=== PATIENT | male | born 1950 | race Caucasian/White ===

== ENCOUNTER 2024-01-28 19:14 | Inpatient (IN) | payer MEDICARE, BC, SELFPAY ==
--- NOTE | 2024-01-28 19:19 | ED.GENADULT ---
HPI - General Adult General Time Seen by Provider: 19:19 Date Seen: 01/28/24 Chief complaint: Abdominal Pain Stated complaint: Abdominal pain Time Seen by Provider: 01/28/24 19:19 Source: patient, RN notes reviewed and old records reviewed Mode of arrival: ambulatory Limitations: no limitations History of Present Illness HPI narrative: 73-year-old male who comes in today with abdominal pain. Patient notes about a week ago he was climbing at work wound fill acute pulled a muscle in his left upper abdomen, has had pain since. Pain is worse with movement, occasionally some pain on the right side as well. No nausea, vomiting, diarrhea, blood in the stools. Denies chest pain, shortness of breath, or pain with breathing. Related Data Home Medications ?Medication ?Instructions ?Recorded ?Confirmed amlodipine 5 mg tablet 5 mg PO DAILY 01/28/24 01/28/24 lisinopril 20 mg tablet 20 mg PO DAILY 01/28/24 01/28/24 rosuvastatin 10 mg tablet 10 mg PO QPM 01/28/24 01/28/24 Allergies Allergy/AdvReac Type Severity Reaction Status Date / Time No Known Drug Allergies Allergy Verified 01/28/24 20:30 PFSH PFS Social History Non-prescribed substance use: denies use service: No Exam Narrative: Exam Narrative: General: Well-developed and well-nourished, no acute distress Head: Atraumatic and normocephalic Eyes: Pupils are equal reactive, extraocular motions intact, conjunctiva clear ENT: External nose and ears are normal, posterior pharynx without erythema or exudate Neck: No midline cervical tenderness, full spontaneous range of motion the neck, trachea midline, no adenopathy Heart: Regular rate and rhythm no murmurs or thrills Lungs: Clear to auscultation bilaterally without wheezes or crackles Abdomen: Soft, tenderness of the left mid abdominal musculature, positive Carnett sign and there does seem to be a palpable lump of the abdominal wall musculature this site, nondistended with active bowel sounds Musculoskeletal: No tenderness, deformity, or edema Neurologic: Awake, alert, and oriented x3, no gross focal neurologic deficits, cranial nerves intact as tested Psych: Mood and affect are appropriate Skin: No rashes Const: Vital Signs, click to edit/add: Vital Signs - 24 hr 01/28/24 19:28 Temperature 100 F H Pulse Rate [Left P ulse Oximeter] 106 H Respiratory Rate 20 Blood Pressure [Ri ght Upper Arm] 143/96 H Pulse Oximetry 97 Oxygen Delivery Me thod Room Air Course Course ED Course: Patient seen examined, reviewed prior records as available. Patient has a history of hypertension. He presents today with left-sided abdominal pain he for about a week. On exam, left mid abdominal tenderness, with a palpable fullness of the abdominal wall, suspect this symptoms liver are related to abdominal wall hematoma or sprain. Diverticulitis or pancreatitis possible but less likely. Labs ordered along with CT scan of the abdomen and pelvis. Consider thoracic pathology including myocardial infarction or pulmonary embolism, however given tenderness on exam her location of symptoms, abdominal process is more likely in this seems to be isolated to the abdominal wall. Social determinates of care include poor access to affordable healthcare. Reevaluation(s) Time of Reevaluation #1: 20:15 Reevaluation #1: Labs ordered and independently interpreted by me with leukocytosis, no anemia, normal hepatic panel, normal basic panel, normal lipase. CT scan is pending. Time of Reevaluation #2: 20:29 Reevaluation #2: CT scan of the abdomen and pelvis independently interpreted by me without biliary obstruction or gallbladder distension, does demonstrate some inflammatory changes in the left lower quadrant which could be related to colitis or diverticulitis, no free air or evidence for perforation. With upstream bowel distension and some downstream decompression, concern also for obstructing lesion Time of Reevaluation #3: 20:55 Reevaluation #3: Reviewed radiology interpretation of CT scan which demonstrates a possible early abscess measuring about 3 cm. Care discussed with Dr. Castañeda in the emergency department who requests or dependent for the patient and admission Vital Signs Vital signs: Initial Vital Signs Temperature 100 F H 01/28/24 19:28 Temperature Source Temporal Artery Scan 01/28/24 19:28 Pulse Rate 106 H 01/28/24 19:28 Respiratory Rate 20 01/28/24 19:28 Blood Pressure 143/96 H 01/28/24 19:28 Blood Pressure Mean 111 H 01/28/24 19:28 Blood Pressure Position Sitting 01/28/24 19:28 Pulse Oximetry 97 01/28/24 19:28 Oxygen Delivery Method Room Air 01/28/24 19:28 Vital Signs Temperature 100 F H 01/28/24 19:28 Pulse Rate 106 H 01/28/24 19:28 Respiratory Rate 20 01/28/24 19:28 Blood Pressure 143/96 H 01/28/24 19:28 Pulse Oximetry 97 01/28/24 19:28 Oxygen Delivery Method Room Air 01/28/24 19:28 Temperature 100 F H 01/28/24 19:28 Pulse Rate 106 H 01/28/24 19:28 Respiratory Rate 20 01/28/24 19:28 Blood Pressure 143/96 H 01/28/24 19:28 Pulse Oximetry 97 01/28/24 19:28 Oxygen Delivery Method Room Air 01/28/24 19:28 Medications Administered Medications: Generic Name Dose Route Start Last Admin Trade Name Freq PRN Reason Stop Dose Admin Ertapenem 1 gm/ Sodium 100 mls @ 200 mls/hr 01/28/24 20:54 01/28/24 21:03 Chloride IVPB 01/28/24 20:55 200 mls/hr ONCE ONE Administration Medical Decision Making Lab Data Labs: Lab Results 01/28/24 01/28/24 01/28/24 Range/Units 19:45 19:45 19:45 WBC 15.50 H (4.50-11.00) K/uL RBC 5.02 (4.30-5.90) m/uL Hgb 14.3 (13.5-17.5) gm/dL Hct 43.7 (37.0-53.0) % MCV 87 (80-100) fL MCH 29 (26-34) pg MCHC 33 (32-36) gm/dL RDW Coeff of Aida 13.3 (11.5-15.5) % Plt Count 230 (140-440) K/uL Neut % (Auto) 76.3 H (42.0-72.0) % Lymph % (Auto) 10.5 L (20-44) % [place] % (Auto) 12.8 H (0.0-11.0) % Eos % (Auto) 0.1 (0.0-7.0) % Baso % (Auto) 0.1 (0.0-3.0) % Neut # (Auto) 11.80 H (1.7-7.0) K/uL Lymph # (Auto) 1.60 (0.90-2.90) K/uL [place] # (Auto) 2.00 H (0.00-0.90) K/UL Eos # (Auto) 0.00 (0.00-0.50) K/uL Baso # (Auto) 0.00 (0.00-0.30) K/uL Abs Immat Gran (auto) 0.00 (0.00-0.30) K/uL Imm/Tot Granulo (auto) 0.2 % Sodium Cancelled 133 L Potassium Cancelled 4.1 Chloride Cancelled Carbon Dioxide Anion Gap BUN Creatinine Estimated Creat Clear Estimated GFR Glucose Calcium Total Bilirubin (0.1-1.5) mg/dL Direct Bilirubin (0.0-0.5) mg/dL AST (12-35) U/L ALT (4-50) U/L Alkaline Phosphatase (40-150) U/L Total Protein (6.0-8.3) g/dL Albumin (3.3-5.0) g/dL Lipase (23-300) U/L 01/28/24 01/28/24 01/28/24 Range/Units 19:45 19:45 19:45 WBC (4.50-11.00) K/uL RBC (4.30-5.90) m/uL Hgb (13.5-17.5) gm/dL Hct (37.0-53.0) % MCV (80-100) fL MCH (26-34) pg MCHC (32-36) gm/dL RDW Coeff of Aida (11.5-15.5) % Plt Count (140-440) K/uL Neut % (Auto) (42.0-72.0) % Lymph % (Auto) (20-44) % [place] % (Auto) (0.0-11.0) % Eos % (Auto) (0.0-7.0) % Baso % (Auto) (0.0-3.0) % Neut # (Auto) (1.7-7.0) K/uL Lymph # (Auto) (0.90-2.90) K/uL [place] # (Auto) (0.00-0.90) K/UL Eos # (Auto) (0.00-0.50) K/uL Baso # (Auto) (0.00-0.30) K/uL Abs Immat Gran (auto) (0.00-0.30) K/uL Imm/Tot Granulo (auto) % Sodium Potassium Chloride 99 Carbon Dioxide Cancelled 26 Anion Gap Cancelled 8 BUN Cancelled Creatinine Estimated Creat Clear Estimated GFR Glucose Calcium Total Bilirubin (0.1-1.5) mg/dL Direct Bilirubin (0.0-0.5) mg/dL AST (12-35) U/L ALT (4-50) U/L Alkaline Phosphatase (40-150) U/L Total Protein (6.0-8.3) g/dL Albumin (3.3-5.0) g/dL Lipase (23-300) U/L 01/28/24 01/28/24 01/28/24 Range/Units 19:45 19:45 19:45 WBC (4.50-11.00) K/uL RBC (4.30-5.90) m/uL Hgb (13.5-17.5) gm/dL Hct (37.0-53.0) % MCV (80-100) fL MCH (26-34) pg MCHC (32-36) gm/dL RDW Coeff of Aida (11.5-15.5) % Plt Count (140-440) K/uL Neut % (Auto) (42.0-72.0) % Lymph % (Auto) (20-44) % [place] % (Auto) (0.0-11.0) % Eos % (Auto) (0.0-7.0) % Baso % (Auto) (0.0-3.0) % Neut # (Auto) (1.7-7.0) K/uL Lymph # (Auto) (0.90-2.90) K/uL [place] # (Auto) (0.00-0.90) K/UL Eos # (Auto) (0.00-0.50) K/uL Baso # (Auto) (0.00-0.30) K/uL Abs Immat Gran (auto) (0.00-0.30) K/uL Imm/Tot Granulo (auto) % Sodium Potassium Chloride Carbon Dioxide Anion Gap BUN 15 Creatinine Cancelled 1.1 Estimated Creat Clear Cancelled 66.63 Estimated GFR Cancelled Glucose Calcium Total Bilirubin (0.1-1.5) mg/dL Direct Bilirubin (0.0-0.5) mg/dL AST (12-35) U/L ALT (4-50) U/L Alkaline Phosphatase (40-150) U/L Total Protein (6.0-8.3) g/dL Albumin (3.3-5.0) g/dL Lipase (23-300) U/L 01/28/24 01/28/24 01/28/24 Range/Units 19:45 19:45 19:45 WBC (4.50-11.00) K/uL RBC (4.30-5.90) m/uL Hgb (13.5-17.5) gm/dL Hct (37.0-53.0) % MCV (80-100) fL MCH (26-34) pg MCHC (32-36) gm/dL RDW Coeff of Aida (11.5-15.5) % Plt Count (140-440) K/uL Neut % (Auto) (42.0-72.0) % Lymph % (Auto) (20-44) % [place] % (Auto) (0.0-11.0) % Eos % (Auto) (0.0-7.0) % Baso % (Auto) (0.0-3.0) % Neut # (Auto) (1.7-7.0) K/uL Lymph # (Auto) (0.90-2.90) K/uL [place] # (Auto) (0.00-0.90) K/UL Eos # (Auto) (0.00-0.50) K/uL Baso # (Auto) (0.00-0.30) K/uL Abs Immat Gran (auto) (0.00-0.30) K/uL Imm/Tot Granulo (auto) % Sodium Potassium Chloride Carbon Dioxide Anion Gap BUN Creatinine Estimated Creat Clear Estimated GFR 71 Glucose Cancelled 118 H Calcium Cancelled 9.1 Total Bilirubin 1.4 (0.1-1.5) mg/dL Direct Bilirubin 0.5 (0.0-0.5) mg/dL AST 23 (12-35) U/L ALT 13 (4-50) U/L Alkaline Phosphatase 80 (40-150) U/L Total Protein 7.7 (6.0-8.3) g/dL Albumin 4.4 (3.3-5.0) g/dL Lipase 34 (23-300) U/L Discharge Plan Discharge Clinical Impression: Diverticulitis of intestine with perforation and abscess Patient Disposition: Admitted As Inpatient
[2024-01-28 19:28] VITALS: BP 143/96; PULSE 106; RESP 20; TEMP 37.7; O2SAT 97; BMI 33.9
--- NOTE | 2024-01-28 19:35 | CRLHL7_ITS ---
For Patients: As a result of the Century Cures Act, medical imaging exams and procedure reports are released immediately into your electronic medical record. You may view this report before your referring provider. If you have questions, please contact your health care provider. Indication: Left-sided abdominal pain Technique: CT through the abdomen and pelvis following 122 mL Isovue 370 IV contrast Comparison: None Findings: Lower chest: There is a partially visualized nodule in the left lower lobe measuring at least 7 millimeters. Hepatobiliary: No significant parenchymal abnormality is appreciated. Spleen: Unremarkable. Pancreas: No acute abnormality appreciated. Adrenal glands: No acute abnormality appreciated. Kidneys: No significant parenchymal abnormality appreciated. No visualized calculi. No hydronephrosis. Bowel: No obstruction. Diverticulosis. There is significant wall thickening and stranding along the descending colon appearing to be associated with an inflamed diverticulum. A small collection of mottled gas and debris adjacent to the colon measuring 3.0 centimeter suspicious for early abscess formation within the inflamed diverticulum. The appendix is visualized and appears unremarkable. Vascular: No acute abnormality appreciated. Lymph nodes: No gross lymphadenopathy. Peritoneum: No free air. No free fluid. : No acute abnormality appreciated. Soft tissues: No acute abnormality appreciated. Fat containing inguinal hernias. Bones: No acute fracture. No lytic or blastic lesion. L5 pars defects with L5-S1 anterolisthesis. Impression: 1. Acute descending colon diverticulitis. Findings are suspicious for an early abscess within the involved diverticulum measuring 3.0 centimeters. 2. Incompletely visualized pulmonary nodule in the left lower lobe measures at least [address] in 8-12 weeks for further evaluation. Please note that all CT scans at this facility use dose modulation, iterative reconstruction, and/or weight-based dosing when appropriate to reduce radiation dose to as low as reasonably achievable. Dictated by Tyrone Torrez MD @ 01/28/2024 8:52:58 PM (Electronically Signed)
[2024-01-28 19:51] LABS: Basophils Percent Auto 0.1 % (0.0-3.0); Eosinophils Percent Auto 0.1 % (0.0-7.0); Hematocrit 43.7 % (37.0-53.0); Hemoglobin* 14.3 gm/dL (13.5-17.5); Immature Granulocytes Pct Auto 0.2 %; Lymphocytes Percent Auto 10.5 % (20-44); Mean Corpuscular HGB Conc 33 gm/dL (32-36); Mean Corpuscular Hemoglobin 29 pg (26-34); Mean Corpuscular Volume 87 fL (80-100); Monocytes Percent Auto 12.8 % (0.0-11.0); Neutrophils Percent Auto 76.3 % (42.0-72.0); Platelet Count* 230 K/uL (140-440); RDW Coefficient of Variation % 13.3 % (11.5-15.5); Red Blood Count 5.02 m/uL (4.30-5.90)
[2024-01-28 19:54] LABS: Slide Review Reflex No
[2024-01-28 20:05] LABS: Albumin* 4.4 g/dL (3.3-5.0); Chloride* 99 mmol/L (96-114); Potassium* 4.1 mmol/L (3.6-5.1); Sodium* 133 mmol/L (135-149)
[2024-01-28 20:07] LABS: Anion Gap 8 mEq/L (7-15); Carbon Dioxide* 26 mmol/L (20-32); Creatinine* 1.1 mg/dL (0.5-1.5); Est. Creatinine Clearance* 66.63; Estimated Glomerular Filt Rate 71 ml/min
[2024-01-28 20:08] LABS: Alanine Aminotransferase* 13 U/L (4-50); Alkaline Phosphatase* 80 U/L (40-150); Aspartate Amino Transferase* 23 U/L (12-35); Bilirubin Direct* 0.5 mg/dL (0.0-0.5); Bilirubin Total* 1.4 mg/dL (0.1-1.5); Blood Urea Nitrogen* 15 mg/dL (7-30); Calcium* 9.1 mg/dL (8.4-10.6); Glucose* 118 mg/dL (60-115); Lipase* 34 U/L (23-300); Total Protein* 7.7 g/dL (6.0-8.3)
[2024-01-28] MEDS: ERTAPENEM 1 GM in 0.9 % SODIUM CHLORIDE Mini-bag 100 ML IVPB (21:03)
[2024-01-28 21:28] VITALS: BP 143/81; PULSE 85; RESP 16; O2SAT 95
[2024-01-28 21:48] VITALS: BP 137/82; PULSE 93; RESP 18; TEMP 36.7; O2SAT 97; BMI 32.5
--- NOTE | 2024-01-28 22:44 | P.IMHP_ITS ---
Hospitalist- H&P: HPI History of Present Illness Date Seen: 01/28/24 Chief complaint: Abdominal pain Narrative: Juan Ozuna is a 73 year old male with hypertension, hyperlipidemia and history of prostate cancer admitted to the hospital with an 8 day history of left flank pain. Patient reports that 8 days ago he felt like he pulled a muscle in his left side. He had ongoing pain there that was getting worse over the past week. He noted that he was developing gas pains as well. He lost his appetite. He felt chills. He was not eating much and he has not had a bowel movement for 3-4 days. In the emergency room he had a CT scan of his abdomen and pelvis which showed descending colon diverticulitis with an abscess. He has had no previous history of diverticulitis. He does have a remote history of colonoscopy with benign findings. He has a history of prostate cancer with radical prostatectomy. He reports today he has had no recurrence. Review of Systems Narrative: Patient reports doing well other than this pain in his side. No other recent illness. [facility] Medical History (Updated 01/28/24 @ 22:56 by Emanuel Castañeda MD) Prostate cancer ?C61 - Malignant neoplasm of prostate (ICD-10) Diverticulitis ?K57.92 - Diverticulitis of intestine, part unspecified, without perforation or abscess without bleeding (ICD-10) Hyperlipidemia ?E78.5 - Hyperlipidemia, unspecified (ICD-10) Hypertension ?I10 - Essential (primary) hypertension (ICD-10) Surgical History (Updated 01/28/24 @ 22:52 by Emanuel Castañeda MD) History of right inguinal hernia repair ?Z98.890 - Other specified postprocedural states (ICD-10) ?Z87.19 - Personal history of other diseases of the digestive system (ICD-10) History of umbilical hernia repair ?Z98.890 - Other specified postprocedural states (ICD-10) ?Z87.19 - Personal history of other diseases of the digestive system (ICD-10) History of robot-assisted laparoscopic radical prostatectomy ?Z90.79 - Acquired absence of other genital organ(s) (ICD-10) Family History (Updated 01/28/24 @ 22:53 by Emanuel Castañeda MD) Mother Breast cancer Sister Breast cancer Father Prostate cancer Heart disease Social History (Updated 01/28/24 @ 22:54 by Emanuel Castañeda MD) Narrative: He is and lives with his , Cathy, who is 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 Code status is full. He does not smoke. Does not drink alcohol. Non-prescribed substance use: denies use service: No Meds Home Medications and Allergies Home Medications ?Medication ?Instructions ?Recorded ?Confirmed ?Type amlodipine 5 mg tablet 5 mg PO DAILY 01/28/24 01/28/24 History lisinopril 20 mg tablet 20 mg PO DAILY 01/28/24 01/28/24 History rosuvastatin 10 mg tablet 10 mg PO QPM 01/28/24 01/28/24 History Allergies Allergy/AdvReac Type Severity Reaction Status Date / Time No Known Drug Allergies Allergy Verified 01/28/24 20:30 Exam Narrative: Exam Narrative: He is alert and appears in no distress. He gives his own history. Eyes normal. Oropharynx with small airway. Neck is supple without mass or adenopathy. Respirations are clear to auscultation. Cardiovascular: S1, S2, regular rate and rhythm. No murmur gallop or rub. Abdomen: Bowel sounds active. Abdomen is soft. It is nontender except in his left mid abdomen/flank where he has exquisite tenderness to palpation. External genitalia normal. Extremities norm al. Intact pedal pulses. No rash. Const: Vital Signs, click to edit/add: Vital Signs - 24 hr 01/28/24 19:28 01/28/24 21:28 01/28/24 21:48 Temperature 100 F H Pulse Rate [Left P ulse Oximeter] 106 H 85 Respiratory Rate 20 16 18 Blood Pressure [Ri ght Upper Arm] 143/96 H 143/81 H Pulse Oximetry 97 95 97 Oxygen Delivery Me thod Room Air Room Air Room Air Documenting provider has reviewed patient's vital signs: yes Hospitalist - H&P: Result Labs Labs: Short CBC 01/28/24 Range/Units 19:45 WBC 15.50 H (4.50-11.00) K/uL Hgb 14.3 (13.5-17.5) gm/dL Hct 43.7 (37.0-53.0) % Plt Count 230 (140-440) K/uL BMP 01/28/24 01/28/24 01/28/24 19:45 19:45 19:45 Sodium Cancelled 133 L Potassium Cancelled 4.1 Chloride Cancelled Carbon Dioxide BUN Creatinine Glucose Calcium 01/28/24 01/28/24 01/28/24 19:45 19:45 19:45 Sodium Potassium Chloride 99 Carbon Dioxide Cancelled 26 BUN Cancelled 15 Creatinine Cancelled Glucose Calcium 01/28/24 01/28/24 01/28/24 19:45 19:45 19:45 Sodium Potassium Chloride Carbon Dioxide BUN Creatinine 1.1 Glucose Cancelled 118 H Calcium Cancelled 9.1 Liver Function 01/28/24 Range/Units 19:45 Total Bilirubin 1.4 (0.1-1.5) mg/dL Direct Bilirubin 0.5 (0.0-0.5) mg/dL AST 23 (12-35) U/L ALT 13 (4-50) U/L Alkaline Phosphatase 80 (40-150) U/L Albumin 4.4 (3.3-5.0) g/dL Assessment and Plan Assessment and plan (1) Diverticulitis of intestine with perforation and abscess: Problem comment: IV antibiotics with ertapenem. Surgical consult. Clear liquid diet. Outpatient colonoscopy. Status: Acute Plan 73-year-old male admitted to the hospital for management of diverticulitis with abscess with IV antibiotics. Total Time Spent Total Time Spent: Total time spent today is 60 minutes in evaluation management
[2024-01-28 23:00] VITALS: BP 143/83; PULSE 81; RESP 18; TEMP 36.7; O2SAT 96
[2024-01-29] VITALS (7 sets, daily range): BP systolic 102–145; BP diastolic 51–89; PULSE 61–83; RESP 18; TEMP 36.3–36.9; O2SAT 92–97
[2024-01-29] MEDS: MORPHINE 4 MG/ML INJ IVP (03:02)
--- NOTE | 2024-01-29 06:00 | PC.NURSE ---
End of shift [id number]: Admitted to floor at 2145 from ER accompanied by . Per patient he states that on 01/20/2024 he bent over and felt like he pulled a muscle in his left lateral abdomen. Over the last week the pain has persisted but he started with abdominal bloating, decreased appetite and unable to have a bowel movement. Denies any history of current symptoms. Pain to left lateral abdomen is consistently a 2/10 but he gets waves of pain that will go to 7/10. Denies any nausea or vomiting. Currently on clear liquid diet and tolerating well. Bowel sounds active x 4 quadrants. Morphine administered x 1 for increased pain and effective for patient.
[2024-01-29] MEDS: AMLODIPINE 5 MG TABLET PO (08:57)
[2024-01-29] MEDS: lisinopriL 20 MG TABLET PO (08:57)
--- NOTE | 2024-01-29 09:10 | P.IMPN_ITS ---
Progress Note: A&P Assessment and plan (1) Diverticulitis of intestine with perforation and abscess: Problem details: IV antibiotics with ertapenem. Surgical consult. Clear liquid diet. Outpatient colonoscopy. Status: Acute (2) Hyperlipidemia: Problem details: continue statin Status: Acute (3) Hypertension: Problem details: continue lisinopril and norvasc Status: Acute Plan Dispo-likely home in two days pending no surgical interventions Subjective Date Seen: 01/29/24 Interval history: denies nausea or vomiting minimal abdominal pain; waxing and waning AM labs pending Exam Narrative: Exam Narrative: Gen: no acute distress HEENT: NCAT EOMI mmm CV: RRR normal s1 s2 Lungs: CTAB Abd: Soft,nt, nd Neuro: Alert, oriented, CN grossly intact; nonfocal screening?exam Psych: appropriate affect MSK: age appropriate muscle mass Skin; Warm, dry no rash on face Const: Vital Signs, click to edit/add: Vital Signs - 24 hr 01/28/24 19:28 01/28/24 21:28 01/28/24 21:48 Temperature 100 F H Pulse Rate [Left P ulse Oximeter] 106 H 85 Pulse Rate [Pulse Oximeter] Respiratory Rate 20 16 18 Blood Pressure [Ri ght Arm] Blood Pressure [Ri ght Upper Arm] 143/96 H 143/81 H Pulse Oximetry 97 95 97 Oxygen Delivery Me thod Room Air Room Air Room Air 01/28/24 21:48 01/28/24 23:00 01/28/24 23:00 Temperature 98.1 F 98.1 F Pulse Rate [Left P ulse Oximeter] Pulse Rate [Pulse Oximeter] 93 81 81 Respiratory Rate 18 18 18 Blood Pressure [Ri ght Arm] 137/82 143/83 H Blood Pressure [Ri ght Upper Arm] Pulse Oximetry 97 96 Oxygen Delivery Me thod Room Air Room Air 01/29/24 03:00 01/29/24 08:20 01/29/24 08:20 Temperature 98.0 F 97.7 F Pulse Rate [Left P ulse Oximeter] Pulse Rate [Pulse Oximeter] 83 61 Respiratory Rate 18 18 18 Blood Pressure [Ri ght Arm] 130/87 145/89 H Blood Pressure [Ri ght Upper Arm] Pulse Oximetry 95 96 Oxygen Delivery Me thod Room Air Room Air Labs Labs: Laboratory Results - last 24 hr 01/28/24 01/28/24 01/28/24 19:45 19:45 19:45 WBC 15.50 H RBC 5.02 Hgb 14.3 Hct 43.7 MCV 87 MCH 29 MCHC 33 RDW Coeff of Aida 13.3 Plt Count 230 Neut % (Auto) 76.3 H Lymph % (Auto) 10.5 L [place] % (Auto) 12.8 H Eos % (Auto) 0.1 Baso % (Auto) 0.1 Neut # (Auto) 11.80 H Lymph # (Auto) 1.60 [place] # (Auto) 2.00 H Eos # (Auto) 0.00 Baso # (Auto) 0.00 Abs Immat Gran (auto) 0.00 Imm/Tot Granulo (auto) 0.2 Sodium Cancelled 133 L Potassium Cancelled 4.1 Chloride Cancelled Carbon Dioxide Anion Gap BUN Creatinine Estimated Creat Clear Estimated GFR Glucose Calcium Total Bilirubin Direct Bilirubin AST ALT Alkaline Phosphatase Total Protein Albumin Lipase 01/28/24 01/28/24 01/28/24 19:45 19:45 19:45 WBC RBC Hgb Hct MCV MCH MCHC RDW Coeff of Aida Plt Count Neut % (Auto) Lymph % (Auto) [place] % (Auto) Eos % (Auto) Baso % (Auto) Neut # (Auto) Lymph # (Auto) [place] # (Auto) Eos # (Auto) Baso # (Auto) Abs Immat Gran (auto) Imm/Tot Granulo (auto) Sodium Potassium Chloride 99 Carbon Dioxide Cancelled 26 Anion Gap Cancelled 8 BUN Cancelled Creatinine Estimated Creat Clear Estimated GFR Glucose Calcium Total Bilirubin Direct Bilirubin AST ALT Alkaline Phosphatase Total Protein Albumin Lipase 01/28/24 01/28/24 01/28/24 19:45 19:45 19:45 WBC RBC Hgb Hct MCV MCH MCHC RDW Coeff of Aida Plt Count Neut % (Auto) Lymph % (Auto) [place] % (Auto) Eos % (Auto) Baso % (Auto) Neut # (Auto) Lymph # (Auto) [place] # (Auto) Eos # (Auto) Baso # (Auto) Abs Immat Gran (auto) Imm/Tot Granulo (auto) Sodium Potassium Chloride Carbon Dioxide Anion Gap BUN 15 Creatinine Cancelled 1.1 Estimated Creat Clear Cancelled 66.63 Estimated GFR Cancelled Glucose Calcium Total Bilirubin Direct Bilirubin AST ALT Alkaline Phosphatase Total Protein Albumin Lipase 01/28/24 01/28/24 01/28/24 19:45 19:45 19:45 WBC RBC Hgb Hct MCV MCH MCHC RDW Coeff of Aida Plt Count Neut % (Auto) Lymph % (Auto) [place] % (Auto) Eos % (Auto) Baso % (Auto) Neut # (Auto) Lymph # (Auto) [place] # (Auto) Eos # (Auto) Baso # (Auto) Abs Immat Gran (auto) Imm/Tot Granulo (auto) Sodium Potassium Chloride Carbon Dioxide Anion Gap BUN Creatinine Estimated Creat Clear Estimated GFR 71 Glucose Cancelled 118 H Calcium Cancelled 9.1 Total Bilirubin 1.4 Direct Bilirubin 0.5 AST 23 ALT 13 Alkaline Phosphatase 80 Total Protein 7.7 Albumin 4.4 Lipase 34
[2024-01-29 09:33] LABS: Basophils Percent Auto 0.1 % (0.0-3.0); Hematocrit 43.6 % (37.0-53.0); Hemoglobin* 14.1 gm/dL (13.5-17.5); Immature Granulocytes Pct Auto 0.2 %; Lymphocytes Percent Auto 5.9 % (20-44); Mean Corpuscular HGB Conc 32 gm/dL (32-36); Mean Corpuscular Hemoglobin 28 pg (26-34); Mean Corpuscular Volume 88 fL (80-100); Monocytes Percent Auto 8.7 % (0.0-11.0); Neutrophils Percent Auto 85.1 % (42.0-72.0); Platelet Count* 220 K/uL (140-440); RDW Coefficient of Variation % 13.3 % (11.5-15.5); Red Blood Count 4.98 m/uL (4.30-5.90); White Blood Count* 15.15 K/uL (4.50-11.00)
[2024-01-29 09:41] LABS: Slide Review Reflex No
[2024-01-29 09:50] LABS: Chloride* 101 mmol/L (96-114); Potassium* 3.9 mmol/L (3.6-5.1); Sodium* 136 mmol/L (135-149)
[2024-01-29 09:53] LABS: Est. Creatinine Clearance* 73.29; Estimated Glomerular Filt Rate 80 ml/min
[2024-01-29 09:54] LABS: Anion Gap 10 mEq/L (7-15); Blood Urea Nitrogen* 16 mg/dL (7-30); Calcium* 9.2 mg/dL (8.4-10.6); Carbon Dioxide* 25 mmol/L (20-32); Glucose* 125 mg/dL (60-115)
[2024-01-29] MEDS: ACETAMINOPHEN 325 MG TABLET 650 MG PO ×2 (10:26→16:27)
[2024-01-29] MEDS: LACTATED RINGERS 1000 ML 1,000 ML 100 ML IV ×2 (10:27→20:28)
[2024-01-29 11:24] LABS: Albumin* 4.2 g/dL (3.3-5.0)
[2024-01-29 11:26] LABS: Aspartate Amino Transferase* 25 U/L (12-35); Bilirubin Total* 1.1 mg/dL (0.1-1.5); Total Protein* 7.6 g/dL (6.0-8.3)
[2024-01-29 11:27] LABS: Alanine Aminotransferase* 13 U/L (4-50); Alkaline Phosphatase* 73 U/L (40-150)
--- NOTE | 2024-01-29 12:00 | P.GSCN_ITS ---
History of Present Illness Consult details Date Seen: 01/29/24 Consult date: 01/29/24 Narrative: Patient was admitted to the hospital with evidence of diverticulitis and associated abscess. This is his 1st documented episode of diverticulitis. He has never had pain like this before. He states that the pain started about a week ago. He was lifting something heavy when he felt like he pulled a muscle on the left side of his abdomen. Over the week the pain got worse, prompting him to come in. His last bowel movement was on Friday. He cannot remember the last time he passed gas. He denies any nausea or vomiting. He has been tolerating p.o. intake and been on clears since being admitted to the hospital. He felt feverish at home on Friday, but did not take his temperature. Compared to last night his pain is ?100 times better?. He last received pain medicine last night, nothing this morning. He has a very active annalisa and is planning on walking the halls today. His abdominal surgical history is positive for an umbilical hernia repaired with mesh. He also has a history of a robotic prostatectomy for prostate cancer. He cannot remember when his last colonoscopy was, but states it is been over 10 years. Denies any personal history of polyps. Review of Systems Status of ROS: Reports: 10 or more systems reviewed and unremarkable except as noted in History and below [facility] Medical History (Updated 01/29/24 @ 09:14 by Harry Puentes MD) Prostate cancer ?C61 - Malignant neoplasm of prostate (ICD-10) Diverticulitis ?K57.92 - Diverticulitis of intestine, part unspecified, without perforation or abscess without bleeding (ICD-10) Hyperlipidemia ?E78.5 - Hyperlipidemia, unspecified (ICD-10) Hypertension ?I10 - Essential (primary) hypertension (ICD-10) Surgical History (Updated 01/28/24 @ 22:52 by Emanuel Castañeda MD) History of right inguinal hernia repair ?Z98.890 - Other specified postprocedural states (ICD-10) ?Z87.19 - Personal history of other diseases of the digestive system (ICD-10) History of umbilical hernia repair ?Z98.890 - Other specified postprocedural states (ICD-10) ?Z87.19 - Personal history of other diseases of the digestive system (ICD-10) History of robot-assisted laparoscopic radical prostatectomy ?Z90.79 - Acquired absence of other genital organ(s) (ICD-10) Family History (Updated 01/28/24 @ 22:53 by Emanuel Castañeda MD) Mother Breast cancer Sister Breast cancer Father Prostate cancer Heart disease Social History (Updated 01/28/24 @ 22:54 by Emanuel Castañeda MD) Narrative: He is and lives with his , Cathy, who is healthcare power of estate planning attorney. Code status is full. He does not smoke. Does not drink alcohol. What is your current living situation?: I presently have a place to live Problems where you live: no known problems Problems where you live details: na In the past 12 months, utilities in danger of being shut off: no In past 12 months, lack of transportation kept you from medical appts, meetings, work, or getting things needed for daily living: no In the past 12 mos, have been you worried that your food would run out before you had money to buy more?: never true In the past 12 mos, the food you bought just didn't last and you didn't have money to buy more?: never true Highest level of school completed/degree received: Bachelor's degree Smoking Status: Never smoker How often do you have a drink containing alcohol: never AUDIT-C Alcohol total score: 0 Non-prescribed substance use: denies use Caffeine: Yes How often does anyone, including family, friends and others, physically hurt you : never How often does anyone, including family, friends and others, insult or talk down to you: never How often does anyone, including family, friends and others, threaten you with harm: never How often does anyone, including family, friends and others, scream or curse at you: never service: No Meds Home Medications and Allergies Home Medications ?Medication ?Instructions ?Recorded ?Confirmed ?Type amlodipine 5 mg tablet 5 mg PO DAILY 01/28/24 01/28/24 History lisinopril 20 mg tablet 20 mg PO DAILY 01/28/24 01/28/24 History rosuvastatin 10 mg tablet 10 mg PO Q48H 01/28/24 01/29/24 History Allergies Allergy/AdvReac Type Severity Reaction Status Date / Time No Known Drug Allergies Allergy Verified 01/28/24 20:30 Exam Narrative: Exam Narrative: General: Alert and oriented, no acute distress. Nontoxic Respiratory: Equal breath rise bilaterally, maintained on room air CV: Well perfused Abdomen: Obese abdomen, soft, tender to palpation in the left lower quadrant with some guarding. All other areas of the abdomen are soft with no tenderness. No noted rebound. No signs of peritonitis. Const: Vital Signs, click to edit/add: Vital Signs - 24 hr 01/28/24 19:28 01/28/24 21:28 01/28/24 21:48 Temperature 100 F H Pulse Rate [Left P ulse Oximeter] 106 H 85 Pulse Rate [Pulse Oximeter] Respiratory Rate 20 16 18 Blood Pressure [Le ft Arm] Blood Pressure [Ri ght Arm] Blood Pressure [Ri ght Upper Arm] 143/96 H 143/81 H Pulse Oximetry 97 95 97 Oxygen Delivery Me thod Room Air Room Air Room Air 01/28/24 21:48 01/28/24 23:00 01/28/24 23:00 Temperature 98.1 F 98.1 F Pulse Rate [Left P ulse Oximeter] Pulse Rate [Pulse Oximeter] 93 81 81 Respiratory Rate 18 18 18 Blood Pressure [Le ft Arm] Blood Pressure [Ri ght Arm] 137/82 143/83 H Blood Pressure [Ri ght Upper Arm] Pulse Oximetry 97 96 Oxygen Delivery Me thod Room Air Room Air 01/29/24 03:00 01/29/24 08:20 01/29/24 08:20 Temperature 98.0 F 97.7 F Pulse Rate [Left P ulse Oximeter] Pulse Rate [Pulse Oximeter] 83 61 Respiratory Rate 18 18 18 Blood Pressure [Le ft Arm] Blood Pressure [Ri ght Arm] 130/87 145/89 H Blood Pressure [Ri ght Upper Arm] Pulse Oximetry 95 96 Oxygen Delivery Me thod Room Air Room Air 01/29/24 10:33 Temperature 98.5 F Pulse Rate [Left P ulse Oximeter] Pulse Rate [Pulse Oximeter] 79 Respiratory Rate 18 Blood Pressure [Le ft Arm] 126/72 Blood Pressure [Ri ght Arm] Blood Pressure [Ri ght Upper Arm] Pulse Oximetry 97 Oxygen Delivery Me thod Room Air Results Labs Labs: Abnormal lab results 01/28/24 01/29/24 Range/Units 19:45 09:18 WBC 15.50 H 15.15 H (4.50-11.00) K/uL Neut % (Auto) 76.3 H 85.1 H (42.0-72.0) % Lymph % (Auto) 10.5 L 5.9 L (20-44) % Ogle % (Auto) 12.8 H (0.0-11.0) % Neut # (Auto) 11.80 H 12.90 H (1.7-7.0) K/uL [place] # (Auto) 2.00 H 1.30 H (0.00-0.90) K/UL Sodium 133 L (135-149) mmol/L Glucose 118 H 125 H (60-115) mg/dL Diabetes panel 01/28/24 01/28/24 01/28/24 Range/Units 19:45 19:45 19:45 Sodium Cancelled 133 L Potassium Cancelled 4.1 Chloride Cancelled Carbon Dioxide BUN Creatinine Glucose Calcium AST (12-35) U/L ALT (4-50) U/L Alkaline Phosphatase (40-150) U/L Total Protein (6.0-8.3) g/dL Albumin (3.3-5.0) g/dL 01/28/24 01/28/24 01/28/24 Range/Units 19:45 19:45 19:45 Sodium Potassium Chloride 99 Carbon Dioxide Cancelled 26 BUN Cancelled 15 Creatinine Cancelled Glucose Calcium AST (12-35) U/L ALT (4-50) U/L Alkaline Phosphatase (40-150) U/L Total Protein (6.0-8.3) g/dL Albumin (3.3-5.0) g/dL 01/28/24 01/28/24 01/28/24 Range/Units 19:45 19:45 19:45 Sodium Potassium Chloride Carbon Dioxide BUN Creatinine 1.1 Glucose Cancelled 118 H Calcium Cancelled 9.1 AST 23 (12-35) U/L ALT 13 (4-50) U/L Alkaline Phosphatase 80 (40-150) U/L Total Protein 7.7 (6.0-8.3) g/dL Albumin 4.4 (3.3-5.0) g/dL 01/29/24 Range/Units 09:18 Sodium 136 Potassium 3.9 Chloride 101 Carbon Dioxide 25 BUN 16 Creatinine 1.0 Glucose 125 H Calcium 9.2 AST 25 (12-35) U/L ALT 13 (4-50) U/L Alkaline Phosphatase 73 (40-150) U/L Total Protein 7.6 (6.0-8.3) g/dL Albumin 4.2 (3.3-5.0) g/dL Calcium panel 01/28/24 01/28/24 01/29/24 Range/Units 19:45 19:45 09:18 Calcium Cancelled 9.1 9.2 Albumin 4.4 4.2 (3.3-5.0) g/dL Pituitary panel 01/28/24 01/28/24 01/28/24 Range/Units 19:45 19:45 19:45 Sodium Cancelled 133 L Potassium Cancelled 4.1 Chloride Cancelled Carbon Dioxide BUN Creatinine Glucose Calcium 01/28/24 01/28/24 01/28/24 Range/Units 19:45 19:45 19:45 Sodium Potassium Chloride 99 Carbon Dioxide Cancelled 26 BUN Cancelled 15 Creatinine Cancelled Glucose Calcium 01/28/24 01/28/24 01/28/24 Range/Units 19:45 19:45 19:45 Sodium Potassium Chloride Carbon Dioxide BUN Creatinine 1.1 Glucose Cancelled 118 H Calcium Cancelled 9.1 01/29/24 Range/Units 09:18 Sodium 136 Potassium 3.9 Chloride 101 Carbon Dioxide 25 BUN 16 Creatinine 1.0 Glucose 125 H Calcium 9.2 Adrenal panel 01/28/24 01/28/24 01/28/24 Range/Units 19:45 19:45 19:45 Sodium Cancelled 133 L Potassium Cancelled 4.1 Chloride Cancelled Carbon Dioxide BUN Creatinine Glucose Calcium Total Bilirubin (0.1-1.5) mg/dL AST (12-35) U/L ALT (4-50) U/L Alkaline Phosphatase (40-150) U/L Total Protein (6.0-8.3) g/dL Albumin (3.3-5.0) g/dL 01/28/24 01/28/24 01/28/24 Range/Units 19:45 19:45 19:45 Sodium Potassium Chloride 99 Carbon Dioxide Cancelled 26 BUN Cancelled 15 Creatinine Cancelled Glucose Calcium Total Bilirubin (0.1-1.5) mg/dL AST (12-35) U/L ALT (4-50) U/L Alkaline Phosphatase (40-150) U/L Total Protein (6.0-8.3) g/dL Albumin (3.3-5.0) g/dL 01/28/24 01/28/24 01/28/24 Range/Units 19:45 19:45 19:45 Sodium Potassium Chloride Carbon Dioxide BUN Creatinine 1.1 Glucose Cancelled 118 H Calcium Cancelled 9.1 Total Bilirubin 1.4 (0.1-1.5) mg/dL AST 23 (12-35) U/L ALT 13 (4-50) U/L Alkaline Phosphatase 80 (40-150) U/L Total Protein 7.7 (6.0-8.3) g/dL Albumin 4.4 (3.3-5.0) g/dL 01/29/24 Range/Units 09:18 Sodium 136 Potassium 3.9 Chloride 101 Carbon Dioxide 25 BUN 16 Creatinine 1.0 Glucose 125 H Calcium 9.2 Total Bilirubin 1.1 (0.1-1.5) mg/dL AST 25 (12-35) U/L ALT 13 (4-50) U/L Alkaline Phosphatase 73 (40-150) U/L Total Protein 7.6 (6.0-8.3) g/dL Albumin 4.2 (3.3-5.0) g/dL All other labs normal. Imaging Abdomen CT scan report/results: report reviewed and image reviewed Progress Note:A&P Assessment and plan (1) Diverticulitis: Status: Acute Assessment and Plan: Patient is a 73-year-old male who is admitted to the hospital with a first-time episode of diverticulitis complicated by an associated abscess. On CT imaging the abscess measures about 3 cm and appears well contained. No concern at this time for peritonitis. Patient's last fever was on admission at 100? F, afebrile overnight and this morning. WBC is elevated at 15. Agree with continuing conservative management with IV ertapenem. Patient is currently tolerating a clear liquid diet, will hold off on advancing further until patient has return of bowel function. No need for emergent surgical intervention at this time. Will continue to follow while inpatient. -trend fever and WBC curve -IV ertapenem, will plan on a 14 day course -clear liquids -encourage ambulation If patient has any acute clinical changes please call the on-call surgeon and consider a repeat CT scan.
--- NOTE | 2024-01-29 19:24 | PC.NURSE ---
Nursing Care Hours: [id number] Pt this shift calm and cooperative with cares. alert and oriented. independent in room. Pain 2/10 mostly for headache. Minimal stomachache. BS hypo active. No reports of flatus. Walking max frequently. VSS. Tolerating clears.
[2024-01-29] MEDS: ENOXAPARIN 40 MG/0.4 ML INJ SUBCUT (20:27)
[2024-01-29] MEDS: ERTAPENEM 1 GM in 0.9 % SODIUM CHLORIDE Mini-bag 100 ML IVPB (20:28)
[2024-01-30] VITALS (7 sets, daily range): BP systolic 114–129; BP diastolic 64–79; PULSE 65–92; RESP 14–18; TEMP 36.1–36.8; O2SAT 95–98
[2024-01-30] MEDS: LACTATED RINGERS 1000 ML 1,000 ML 100 ML IV ×2 (06:32→17:46)
--- NOTE | 2024-01-30 06:49 | PC.NURSE ---
19-: pleasant and cooperative. Walking halls indep. Pt reports nausea and abd pain with increased PO intake, declined need for prn medications, educated pt on advancing diet slowly. Pt passing gas. Pt stated he ?feels full of water? & ?hears water sloshing around in abd? with position changes, encouraging ambulation.
[2024-01-30 07:53] LABS: Basophils Percent Auto 0.1 % (0.0-3.0); Eosinophils Percent Auto 0.3 % (0.0-7.0); Hematocrit 39.6 % (37.0-53.0); Immature Granulocytes Pct Auto 0.2 %; Lymphocytes Percent Auto 8.5 % (20-44); Mean Corpuscular HGB Conc 33 gm/dL (32-36); Mean Corpuscular Hemoglobin 29 pg (26-34); Mean Corpuscular Volume 87 fL (80-100); Monocytes Percent Auto 9.1 % (0.0-11.0); Neutrophils Percent Auto 81.8 % (42.0-72.0); Platelet Count* 208 K/uL (140-440); RDW Coefficient of Variation % 13.4 % (11.5-15.5); Red Blood Count 4.55 m/uL (4.30-5.90); White Blood Count* 11.23 K/uL (4.50-11.00)
[2024-01-30 07:56] LABS: Slide Review Reflex No
[2024-01-30 08:05] LABS: Chloride* 102 mmol/L (96-114); Potassium* 3.3 mmol/L (3.6-5.1); Sodium* 136 mmol/L (135-149)
[2024-01-30 08:08] LABS: Anion Gap 9 mEq/L (7-15); Carbon Dioxide* 25 mmol/L (20-32); Creatinine* 0.9 mg/dL (0.5-1.5); Est. Creatinine Clearance* 73.29; Estimated Glomerular Filt Rate 91 ml/min
[2024-01-30 08:09] LABS: Blood Urea Nitrogen* 18 mg/dL (7-30); Calcium* 8.8 mg/dL (8.4-10.6); Glucose* 109 mg/dL (60-115)
[2024-01-30] MEDS: lisinopriL 20 MG TABLET PO (08:57)
[2024-01-30] MEDS: AMLODIPINE 5 MG TABLET PO (08:57)
--- NOTE | 2024-01-30 10:21 | NUTR.NU ---
RDN with diet education related to diverticulitis. Patient admitted for diverticulitis, first-time episode of diverticulitis complicated by an associated abscess. Current diet is clear liquids. Waiting to advance diet until return of bowels per MD. Current weight 240 lbs 1.6oz; height 6ft; BMI 32.6 kg/m2. No nutrition interventions at this time. RDN will continue to monitor and follow-up prn. RDN will attempt offer diet education when more appropriate once return of bowel function at next work day.
--- NOTE | 2024-01-30 12:32 | PM.IMPN1 ---
Progress Note: A&P Assessment and plan (1) Diverticulitis of intestine with perforation and abscess: Problem details: IV antibiotics with ertapenem. Surgical consulted. Clear liquid diet. Outpatient colonoscopy. 01/29: per surgery keep on clear liquid diet until has BM than can advance diet slowly; will need 14 days IV antibiotics; plan will be ertapenem via infusion center. likely discharge 1-2 days Status: Acute (2) Hypertension: Problem details: continue lisinopril and norvasc Status: Acute (3) Hyperlipidemia: Problem details: continue statin Status: Acute Plan 01/29: per surgery keep on clear liquid diet until has BM than can advance diet slowly; will need 14 days IV antibiotics; plan will be ertapenem via infusion center. likely discharge 1-2 days Subjective Date Seen: 01/30/24 Interval history: minimal abdominal pain passing gas no BM yet Exam Narrative: Exam Narrative: Gen: no acute distress HEENT: NCAT EOMI mmm CV: RRR normal s1 s2 Lungs: CTAB Abd: Soft,nt, nd Neuro: Alert, oriented, CN grossly intact; nonfocal screening?exam Psych: appropriate affect MSK: age appropriate muscle mass Skin; Warm, dry no rash on face Const: Vital Signs, click to edit/add: Vital Signs - 24 hr 01/29/24 14:30 01/29/24 15:00 01/29/24 20:00 Temperature 98.3 F Pulse Rate [Pulse Oximeter] 80 80 74 Respiratory Rate 18 18 18 Blood Pressure [Le ft Arm] 102/51 L Blood Pressure [Ri ght Arm] 145/75 H Pulse Oximetry 97 96 Oxygen Delivery Me thod Room Air Room Air 01/29/24 23:00 01/29/24 23:00 01/30/24 02:41 Temperature 97.3 F L 97.4 F L Pulse Rate [Pulse Oximeter] 82 82 76 Respiratory Rate 18 18 18 Blood Pressure [Le ft Arm] 120/67 129/75 Blood Pressure [Ri ght Arm] Pulse Oximetry 92 97 Oxygen Delivery Me thod Room Air Room Air 01/30/24 08:02 01/30/24 08:02 01/30/24 11:22 Temperature 97.1 F L 98.2 F Pulse Rate [Pulse Oximeter] 81 81 73 Respiratory Rate 14 14 14 Blood Pressure [Le ft Arm] 114/67 120/72 Blood Pressure [Ri ght Arm] Pulse Oximetry 97 97 Oxygen Delivery Me thod Room Air Room Air Labs Labs: Laboratory Results - last 24 hr 01/30/24 07:43 WBC 11.23 H RBC 4.55 Hgb 13.0 L Hct 39.6 MCV 87 MCH 29 MCHC 33 RDW Coeff of Aida 13.4 Plt Count 208 Neut % (Auto) 81.8 H Lymph % (Auto) 8.5 L [place] % (Auto) 9.1 Eos % (Auto) 0.3 Baso % (Auto) 0.1 Neut # (Auto) 9.20 H Lymph # (Auto) 1.00 [place] # (Auto) 1.00 H Eos # (Auto) 0.00 Baso # (Auto) 0.00 Abs Immat Gran (auto) 0.00 Imm/Tot Granulo (auto) 0.2 Sodium 136 Potassium 3.3 L Chloride 102 Carbon Dioxide 25 Anion Gap 9 BUN 18 Creatinine 0.9 Estimated Creat Clear 73.29 Estimated GFR 91 Glucose 109 Calcium 8.8
[2024-01-30] MEDS: POTASSIUM CHLORIDE 10 MEQ CAPSULE ER 40 MEQ PO (12:49)
--- NOTE | 2024-01-30 18:19 | PC.NURSE ---
End of Shift: Patient pleasant and cooperative. Patient vitally stable, lungs clear, BS hyperative, IV running LR at 100ml. Patient denies pain and nausea today, no pain with abdominal palpation. Patient independent in room. Patient urinating well and has had 2 BMs this shift. Suppository was given. Patient has consumed some juice otherwise patient is currently working on regular low fiber diet. Patient walks the halls throughout the day.
[2024-01-30] MEDS: ROSUVASTATIN CALCIUM 10 MG TABLET PO (18:26)
[2024-01-30] MEDS: ERTAPENEM 1 GM in 0.9 % SODIUM CHLORIDE Mini-bag 100 ML IVPB (20:11)
[2024-01-30] MEDS: SODIUM CHLORIDE 0.9 % (FLUSH) 10 ML SYRINGE 5 ML IVF (20:12)
[2024-01-30] MEDS: ENOXAPARIN 40 MG/0.4 ML INJ SUBCUT (20:12)
[2024-01-31 03:05] VITALS: BP 106/72; PULSE 77; RESP 16; TEMP 36.8; O2SAT 96
--- NOTE | 2024-01-31 04:50 | PC.NURSE ---
Pt reporting zero pain. Up IND and walking halls. No N/V. Asking RN if he could go home Friday. VSS
[2024-01-31] MEDS: LACTATED RINGERS 1000 ML 1,000 ML 100 ML IV (05:49)
[2024-01-31 06:30] LABS: Chloride* 104 mmol/L (96-114); Sodium* 136 mmol/L (135-149)
[2024-01-31 06:31] LABS: Potassium* 3.4 mmol/L (3.6-5.1)
[2024-01-31 06:33] LABS: Creatinine* 0.8 mg/dL (0.5-1.5); Est. Creatinine Clearance* 73.29; Estimated Glomerular Filt Rate 94 ml/min
[2024-01-31 06:34] LABS: Anion Gap 6 mEq/L (7-15); Basophils Absolute Auto 0.01 K/uL (0.00-0.30); Basophils Percent Auto 0.1 % (0.0-3.0); Blood Urea Nitrogen* 16 mg/dL (7-30); Calcium* 8.6 mg/dL (8.4-10.6); Carbon Dioxide* 26 mmol/L (20-32); Eosinophils Absolute Auto 0.11 K/uL (0.00-0.50); Eosinophils Percent Auto 1.5 % (0.0-7.0); Glucose* 92 mg/dL (60-115); Hematocrit 37.7 % (37.0-53.0); Hemoglobin* 12.4 gm/dL (13.5-17.5); Lymphocytes Percent Auto 17.3 % (20-44); Mean Corpuscular HGB Conc 33 gm/dL (32-36); Mean Corpuscular Hemoglobin 29 pg (26-34); Mean Corpuscular Volume 87 fL (80-100); Monocytes Percent Auto 13.3 % (0.0-11.0); Neutrophils Absolute Auto 5.01 K/uL (1.7-7.0); Neutrophils Percent Auto 67.8 % (42.0-72.0); Platelet Count* 246 K/uL (140-440); RDW Coefficient of Variation % 13.5 % (11.5-15.5); Red Blood Count 4.32 m/uL (4.30-5.90); White Blood Count* 7.39 K/uL (4.50-11.00)
[2024-01-31 06:35] LABS: Slide Review Reflex No
[2024-01-31 07:22] VITALS: BP 120/71; PULSE 65; RESP 16; TEMP 36.6; O2SAT 97
--- NOTE | 2024-01-31 07:58 | P.DS_ITS ---
DS: Providers Provider Date Seen: 01/31/24 Date of admission: 01/28/24 21:51 Primary care physician: Raymond Hurst MD Admitting Clinician: Emanuel Castañeda MD Consults: 01/28/24 21:51 Consult to Physician [CONS] Urgent Comment: Consulting Provider: Kim Jarrett Has provider been notified: No Attending Physician on discharge: Harry Puentes MD Date of Discharge: 01/31/24 DS: Diagnosis Discharge Diagnosis (1) Diverticulitis: Status: Acute (2) Hyperlipidemia: Status: Acute Problem details: continue statin (3) Hypertension: Status: Acute Problem details: continue lisinopril and norvasc DS: Summary Hospital Course Hospital Course: Hospitalist- H&P: HPI History of Present Illness Date Seen: 01/28/24 Chief complaint: Abdominal pain Narrative: Juan Ozuna is a 73 year old male with hypertension, hyperlipidemia and history of prostate cancer admitted to the hospital with an 8 day history of left flank pain. Patient reports that 8 days ago he felt like he pulled a muscle in his left side. He had ongoing pain there that was getting worse over the past week. He noted that he was developing gas pains as well. He lost his appetite. He felt chills. He was not eating much and he has not had a bowel movement for 3-4 days. In the emergency room he had a CT scan of his abdomen and pelvis which showed descending colon diverticulitis with an abscess. He has had no previous history of diverticulitis. He does have a remote history of colonoscopy with benign findings. He has a history of prostate cancer with radical prostatectomy. He reports today he has had no recurrence. HOSPITAL Course The patient was treated with IV ertapenem therapy. Surgery was consulted. He was managed conservatively. His WBC normalized. He is tolerating diet and has no abdominal pain. He will be completing 14 days of IV ertapenem therapy and will be returning to the Hospital outpatient IV infusion center daily for completion of antibiotic therapy. He will be following up with in clinic.Will need to have non urgent colonoscopy as outpatient timing to be determined by Surgery team. CT AP 1. Acute descending colon diverticulitis. Findings are suspicious for an early abscess within the involved diverticulum measuring 3.0 centimeters. 2. Incompletely visualized pulmonary nodule in the left lower lobe measures at least [address] in 8-12 weeks for further evaluation. Time Spent with Patient Time attestation: Total time spent providing and/or coordinating discharge services: Exam Narrative: Exam Narrative: Gen: no acute distress HEENT: NCAT EOMI mmm CV: RRR normal s1 s2 Lungs: CTAB Abd: Soft,nt, nd Neuro: Alert, oriented, CN grossly intact; nonfocal screening?exam Psych: appropriate affect MSK: age appropriate muscle mass Skin; Warm, dry no rash on face Const: Vital Signs, click to edit/add: Vital Signs - 24 hr 01/30/24 08:02 01/30/24 08:02 01/30/24 11:22 Temperature 97.1 F L 98.2 F Pulse Rate [Pulse Oximeter] 81 81 73 Respiratory Rate 14 14 14 Blood Pressure [Le ft Arm] 114/67 120/72 Pulse Oximetry 97 97 Oxygen Delivery Mi thod Room Air Room Air 01/30/24 15:03 01/30/24 15:03 01/30/24 19:27 Temperature 96.9 F L 98 F Pulse Rate [Pulse Oximeter] 92 92 74 Respiratory Rate 16 16 16 Blood Pressure [Le ft Arm] 129/74 124/79 Pulse Oximetry 98 98 Oxygen Delivery Mi thod Room Air Room Air 01/30/24 22:21 01/30/24 22:22 01/31/24 03:05 Temperature 98.3 F 98.2 F Pulse Rate [Pulse Oximeter] 65 65 77 Respiratory Rate 16 16 16 Blood Pressure [Le ft Arm] 123/64 106/72 Pulse Oximetry 95 96 [facility] 01/31/24 07:22 Temperature 97.8 F Pulse Rate [Pulse Oximeter] 65 Respiratory Rate 16 Blood Pressure [Le ft Arm] 120/71 Pulse Oximetry 97 Oxygen Delivery Mi thod Room Air DS: Data Data Completed and Pending Labs on day of discharge: Labs from last 24 hours 01/31/24 01/30/24 05:44 07:43 WBC 7.39 RBC 4.32 Hgb 12.4 L Hct 37.7 MCV 87 MCH 29 MCHC 33 RDW Coeff of Aida 13.5 Plt Count 246 Neut % (Auto) 67.8 Lymph % (Auto) 17.3 L [place] % (Auto) 13.3 H Eos % (Auto) 1.5 Baso % (Auto) 0.1 Neut # (Auto) 5.01 Lymph # (Auto) 1.30 [place] # (Auto) 1.00 H Eos # (Auto) 0.11 Baso # (Auto) 0.01 Abs Immat Gran (auto) 0.00 Imm/Tot Granulo (auto) 0.0 Sodium 136 136 Potassium 3.4 L 3.3 L Chloride 104 102 Carbon Dioxide 26 25 Anion Gap 6 L 9 BUN 16 18 Creatinine 0.8 0.9 Estimated Creat Clear 73.29 73.29 Estimated GFR 94 91 Glucose 92 109 Calcium 8.6 8.8 Discharge Plan Discharge Disposition: Home, Self-Care Date of Admission: 01/28/24 21:51 Attending Provider on Discharge: Harry Puentes Consulting Providers: Kim Jarrett Primary Care Provider: Raymond Hurst Condition: Improved Anticipated Discharge Date/Time: 01/31/24 13:00 Discharge Medications: Continued lisinopril 20 mg tablet 20 mg PO DAILY amlodipine 5 mg tablet 5 mg PO DAILY rosuvastatin 10 mg tablet 10 mg PO Q48H Discharge Orders: Discharge Order (Routine); Ordered 01/31/24 Ordered By: Harry Puentes Patient Education: Low Fiber Diet (DC) Activity Level: Activity as Tolerated Discharge Diet: Low Fiber Follow Up Appointments: Raymond Hurst MD [Primary Care Provider] - 02/04/24 8:00 am ([facility] for post hospital follow-up. ) Forms: [facility] [employer] Info Instructions
[2024-01-31] MEDS: lisinopriL 20 MG TABLET PO (08:32)
[2024-01-31] MEDS: AMLODIPINE 5 MG TABLET PO (08:32)
[2024-01-31] MEDS: ERTAPENEM 1 GM in 0.9 % SODIUM CHLORIDE Mini-bag 100 ML IVPB (11:59)
--- NOTE | 2024-01-31 14:04 | PC.NURSE ---
Shift Summary: Patient pleasant and cooperative. Up independently, tolerating regular diet this morning, denies pain or nausea. Vitals stable and WNL. Given dose of antibiotic prior to discharge, IV removed, patient aware that new IV will need to be placed tomorrow when he comes in for infusion @ 1300. Patient discharged home @ 1300.
== END 2024-01-31 13:00 | disposition home or self-care (01) | DRG 392 ==
LOC: ED 20:57 → MEDSURG 21:41
PROVIDERS: Hospitalist; Surgery; Admitting Provider Family Medicine; Emergency Provider Family Medicine; PCP Family Medicine; Visit Provider Family Medicine
DX: K57.20 Diverticulitis of large intestine with perforation and abscess without bleeding (principal); Z85.46 Personal history of malignant neoplasm of prostate; E78.5 Hyperlipidemia, unspecified; I10 Essential (primary) hypertension
CPT/HCPCS: 36415; 74177; 80048; 80053; 80076; 83690; 85025; 99285; A9270; J1335; J1650; J2270; J7120; Q9967

== ENCOUNTER 2024-02-05 13:56 | Inpatient (IN) | payer MEDICARE, BC, SELFPAY ==
[2024-02-05 14:13] VITALS: BP 133/81; PULSE 83; RESP 18; TEMP 36.6; O2SAT 97; BMI 33.5
--- NOTE | 2024-02-05 14:32 | ED.GENADULT ---
HPI - General Adult General Date Seen: 02/05/24 Chief complaint: Diarrhea Stated complaint: been given IV antibiotics-nausea/vomit/diarhea Time Seen by Provider: 02/05/24 14:32 History of Present Illness HPI narrative: 73 yo male with a history of prostate cancer, history of hypertension and dyslipidemia, and recent perforated diverticulitis. Per medical record he was in the ER on 01/27 with left-sided abdominal pain. Workup showed WBC 15.5, hemoglobin 14.3, platelet count 230. LFTs and lipase normal. Glucose 118. BUN 15, creatinine 1.1. Sodium 133, potassium 4.1. CT abd pelvis- Impression: 1. Acute descending colon diverticulitis. Findings are suspicious for an early abscess within the involved diverticulum measuring 3.0 centimeters. 2. Incompletely visualized pulmonary nodule in the left lower lobe measures at least [address] in 8-12 weeks for further evaluation. He was admitted to the hospital for perforated diverticulitis. Treated with IV ertapenem. Surgery consult. Managed non operatively. During his hospital stay white blood cell count improved. Plan was to have him complete 14 days of IV ertapenem and follow-up with surgery in clinic. He has been doing pretty well since discharge. He is not having any more abdominal pain. No fevers or chills. Since yesterday he started to get worse. Yesterday started feel really nauseous and bloated. Very poor appetite and has had decreased oral intake. He has also started to develop diarrhea. He had 2 episodes of very large volume liquid he watery stool yesterday and 2 more episodes of diarrhea which is still watery but overall less volume. He is feeling a bit tired. Otherwise no fever or chills. And still no abdominal pain. Urination is less than volume but overall normal. He went to the infusion center today to get his daily dose of ertapenem. When he told the infusion center staff of his symptoms, they called the surgeon, Dr. Espitia, who advised that he come here to the ER for workup and further treatment. Related Data Home Medications ?Medication ?Instructions ?Recorded ?Confirmed amlodipine 5 mg tablet 5 mg PO DAILY 01/28/24 02/03/24 lisinopril 20 mg tablet 20 mg PO DAILY 01/28/24 02/03/24 rosuvastatin 10 mg tablet 10 mg PO Q48H 01/28/24 02/03/24 Allergies Allergy/AdvReac Type Severity Reaction Status Date / Time No Known Drug Allergies Allergy Verified 02/05/24 15:29 PFSH PFS Medical History (Updated 02/05/24 @ 17:40 by Solomon Contreras MD) Prostate cancer ?C61 - Malignant neoplasm of prostate (ICD-10) Diverticulitis ?K57.92 - Diverticulitis of intestine, part unspecified, without perforation or abscess without bleeding (ICD-10) Hyperlipidemia ?E78.5 - Hyperlipidemia, unspecified (ICD-10) Hypertension ?I10 - Essential (primary) hypertension (ICD-10) Surgical History (System 02/05/24 @ 13:55 by Rosaura Acosta) History of right inguinal hernia repair ?Z98.890 - Other specified postprocedural states (ICD-10) ?Z87.19 - Personal history of other diseases of the digestive system (ICD-10) History of umbilical hernia repair ?Z98.890 - Other specified postprocedural states (ICD-10) ?Z87.19 - Personal history of other diseases of the digestive system (ICD-10) History of robot-assisted laparoscopic radical prostatectomy ?Z90.79 - Acquired absence of other genital organ(s) (ICD-10) Family History (System 02/05/24 @ 13:55 by Rosaura Acosta) Mother Breast cancer Sister Breast cancer Father Prostate cancer Heart disease Social History (System 02/05/24 @ 13:55 by Rosaura Acosta) Narrative: He is and lives with his , Cathy, who is healthcare power of compliance attorney. Code status is full. He does not smoke. Does not drink alcohol. What is your current living situation?: I presently have a place to live Problems where you live: no known problems Problems where you live details: na In the past 12 months, utilities in danger of being shut off: no In past 12 months, lack of transportation kept you from medical appts, meetings, work, or getting things needed for daily living: no In the past 12 mos, have been you worried that your food would run out before you had money to buy more?: never true In the past 12 mos, the food you bought just didn't last and you didn't have money to buy more?: never true Highest level of school completed/degree received: Bachelor's degree Smoking Status: Never smoker Do you use any of these nicotine containing products: None Second hand tobacco smoke exposure: No How often do you have a drink containing alcohol: never AUDIT-C Alcohol total score: 0 Non-prescribed substance use: denies use Caffeine: Yes How often does anyone, including family, friends and others, physically hurt you: never How often does anyone, including family, friends and others, insult or talk down to you: never How often does anyone, including family, friends and others, threaten you with harm: never How often does anyone, including family, friends and others, scream or curse at you: never service: No Exam Narrative: Exam Narrative: Constitutional: Appears well-developed and well-nourished. Alert. Conversant. Non toxic. HENT: Head: Atraumatic. Nose: Nose normal. Mouth/Throat: Oral mucosa is clear but dry. Not desiccated or cracked.. no trismus. Pharynx normal. Eyes: Conjunctivae normal. EOM normal. Pupils equal, round, and reactive to light. No scleral icterus. Neck: Normal range of motion. Neck supple. No tracheal deviation present. Cardiovascular: Normal rate, regular rhythm. No gallop. No friction rub. No murmur heard. Symmetric radial artery pulses Pulmonary/Chest: Effort normal. No stridor. No respiratory distress. No wheezes. No rales. No rhonchi . Abdominal: Soft. Bowel sounds normal. Not tingling a Taiwanese. Moderate distension. No mass. Mild periumbilical and left-sided tenderness. No rebound. No guarding. Patient says his abdomen is much less painful today than it was last week. Musculoskeletal: RUE: Normal range of motion. No tenderness. No deformity LUE: Normal range of motion. No tenderness. No deformity RLE: Normal range of motion. No edema. No tenderness. No deformity LLE: Normal range of motion. No edema. No tenderness. No deformity Neurological: Alert and oriented to person, place, and time. Normal strength. CN II-VII intact. No sensory deficit. GCS eye subscore is 4. GCS verbal subscore is 5. GCS motor subscore is 6. Normal coordination Skin: Skin is warm and dry. No rash noted. No pallor. Normal capillary refill. Psychiatric: Normal mood. Normal affect. Const: Vital Signs, click to edit/add: Vital Signs - 24 hr 02/05/24 14:13 Temperature 97.8 F Pulse Rate [Right Pulse Oximeter] 83 Respiratory Rate 18 Blood Pressure [Ri ght Upper Arm] 133/81 Pulse Oximetry 97 Oxygen Delivery Me thod Room Air Course Vital Signs Vital signs: Initial Vital Signs Temperature 97.8 F 02/05/24 14:13 Temperature Source Temporal Artery Scan 02/05/24 14:13 Pulse Rate 83 02/05/24 14:13 Respiratory Rate 18 02/05/24 14:13 Blood Pressure 133/81 02/05/24 14:13 Blood Pressure Mean 98 02/05/24 14:13 Blood Pressure Position Sitting 02/05/24 14:13 Pulse Oximetry 97 02/05/24 14:13 Oxygen Delivery Method Room Air 02/05/24 14:13 Vital Signs Temperature 97.8 F 02/05/24 14:13 Pulse Rate 83 02/05/24 14:13 Respiratory Rate 18 02/05/24 14:13 Blood Pressure 133/81 02/05/24 14:13 Pulse Oximetry 97 02/05/24 14:13 Oxygen Delivery Method Room Air 02/05/24 14:13 Temperature 97.8 F 02/05/24 14:13 Pulse Rate 83 02/05/24 14:13 Respiratory Rate 18 02/05/24 14:13 Blood Pressure 133/81 02/05/24 14:13 Pulse Oximetry 97 02/05/24 14:13 Oxygen Delivery Method Room Air 02/05/24 14:13 Medications Administered Medications: Discontinued Medications Generic Name Dose Route Start Last Admin Trade Name Freq PRN Reason Stop Dose Admin Sodium Chloride 1,000 mls @ 1,000 mls/hr 02/05/24 15:45 02/05/24 17:00 0.9 % Sodium Chloride 1000 Ml IV 02/05/24 16:44 Infused .Q1H MISTY Infusion Medical Decision Making MDM Narrative Medical decision making narrative: Very pleasant 73-year-old gentleman sent to the ER today from the outpatient fusion center for nausea, vomiting, diarrhea. He had left-sided abdominal pain was seen in the ER last week and diagnosed with diverticulitis with a 3 cm abscess at that time. Admitted to the hospital for IV antibiotics and surgery consult. Treated with IV ertapenem. Managed non operatively and was improved in the hospital and discharged home a couple of days ago. He has been coming back to the outpatient infusion center since then for his treatments but started develop worsening symptoms yesterday into today. In particular he has been nauseous, poor appetite, and having liquidy stools. Overall he is clinically well-appearing and has a fairly benign abdominal exam. Differential would include worsening diverticulitis, worsening abscess, possible development of C diff colitis from antibiotics, other bacterial enteritis, as well as intestinal perforation, obstruction, among others. We did administer 2 L IV fluid because he was dehydrated from poor oral intake. He was hemodynamically stable. Venous lactic acid is normal. He is not febrile. White count is normal. Given his recent diverticulitis we did obtain CT imaging. It is concerning for large bowel obstruction with a transition site at the area of diverticulitis in the descending colon. Marked dilation of the cecum at 9.5 cm and fluid in the right pericolic gutter. After receiving the phone call from Radiology I did call surgery, Dr. Espitia. She reviewed the patient's images. She is concerned recommends that we go to the OR [facility]. Plan will be for him to go to the OR at about 6:30 p.m.. He is hemodynamically stable. At this point I do not see a medical contraindication to surgery, especially for a potentially emergency/life-saving surgery as this. Patient and his have a friend who works with Colorectal surgery in the [facility]. I had a conversation with the patient, his , and their friend (by phone) or about plan of care. We discussed possible transfer to a hospital in the [facility] such as [facility]. We discussed that surgery needs to happen expeditiously but not emergently. If we can arrange a transfer with the next couple of hours to a facility such as [facility] that may be reasonable. Discussed that often there are delays in transfer due to capacity issues the [facility]. However I am happy to call [facility] to find out if transfer would be feasible or not. Discussed in detail the patient's presentation, lab findings, CT imaging, and our concern. Discussed that surgery here would probably result in hemicolectomy and probably ostomy. Ultimately they decided that they are comfortable staying here at [facility]. Patient does not even want me to call [facility] to find out if beds are available. He will be going to the OR with Dr. Espitia. Lab Data Labs: Lab Results 02/05/24 Range/Units 16:25 WBC 8.58 (4.50-11.00) K/uL RBC 5.18 (4.30-5.90) m/uL Hgb 14.7 (13.5-17.5) gm/dL Hct 45.4 (37.0-53.0) % MCV 88 (80-100) fL MCH 28 (26-34) pg MCHC 32 (32-36) gm/dL RDW Coeff of Aida 13.7 (11.5-15.5) % Plt Count 301 (140-440) K/uL Neut % (Auto) 74.4 H (42.0-72.0) % Lymph % (Auto) 14.7 L (20-44) % [place] % (Auto) 9.6 (0.0-11.0) % Eos % (Auto) 1.0 (0.0-7.0) % Baso % (Auto) 0.1 (0.0-3.0) % Neut # (Auto) 6.40 (1.7-7.0) K/uL Lymph # (Auto) 1.30 (0.90-2.90) K/uL [place] # (Auto) 0.80 (0.00-0.90) K/UL Eos # (Auto) 0.09 (0.00-0.50) K/uL Baso # (Auto) 0.01 (0.00-0.30) K/uL Abs Immat Gran (auto) 0.02 (0.00-0.30) K/uL Imm/Tot Granulo (auto) 0.2 % Sodium 134 L (135-149) mmol/L Potassium 4.9 (3.6-5.1) mmol/L Chloride 103 (96-114) mmol/L Carbon Dioxide 23 (20-32) mmol/L Anion Gap 8 (7-15) mEq/L BUN 23 (7-30) mg/dL Creatinine 1.0 (0.5-1.5) mg/dL Estimated Creat Clear 71.12 Estimated GFR 80 ml/min Glucose 97 (60-115) mg/dL Lactate 1.1 (0.5-1.9) mmol/L Calcium 8.7 (8.4-10.6) mg/dL Imaging Data CT scan - abdomen: Attestation: I have reviewed the pertinent imaging results. Radiologist's impression: IMPRESSION: Large bowel obstruction with transition at the site of diverticulitis involving the descending colon. There is marked dilation of the cecum measuring 9.5 centimeters with fluid in the right pericolic gutter, concerning for impending cecal perforation. Improved descending colonic diverticulitis with near-complete resolution of the previously noted abscess and decreased surrounding inflammatory changes. Discharge Plan Discharge Clinical Impression: Bowel obstruction, Diverticulitis Patient Disposition: XFER to OR Condition: Guarded Follow Up/Referrals: Raymond Hurst MD [Primary Care Provider] -
--- NOTE | 2024-02-05 14:55 | CRLHL7_ITS ---
For Patients: As a result of the Century Cures Act, medical imaging exams and procedure reports are released immediately into your electronic medical record. You may view this report before your referring provider. If you have questions, please contact your health care provider. INDICATION: Diarrhea, recent perforated diverticulitis managed nonoperatively. TECHNIQUE: CT abdomen and pelvis acquired with 118 cc Isovue 370 IV contrast. COMPARISON: CT abdomen and pelvis 01/28/2024. FINDINGS: Lower chest: Previously noted 7 millimeter nodule in the left lower lobe is out of field of view. Right lower lobe atelectasis. Coronary artery calcification. Liver: Unremarkable. Normal in size and attenuation. No suspicious masses. Gallbladder and bile ducts: Unremarkable. No stones or inflammation. No biliary dilatation. Pancreas: Unremarkable. No mass or inflammation. Spleen: Unremarkable. Normal in size. No masses. Adrenal glands: Unremarkable. No nodules. Kidneys: Mild atrophy of the kidneys. Bilateral subcentimeter hypodense lesions, likely cysts and stable peripelvic cysts. GI tract: Decreased inflammation of the previously noted diverticulitis and the previously noted abscess has nearly resolved. There is marked dilation of the colon, particularly the cecum measuring up to 9.5 centimeters with transition at the site of improved diverticulitis at the descending colon. Vasculature: Abdominal aorta is normal in caliber. Mesenteric arteries are patent. Lymph nodes: No lymphadenopathy. Peritoneum/Abdominal Wall: Small fat containing bilateral inguinal hernias. Small volume of fluid along the right pericolic gutter. Pelvis: Unremarkable. Bones: No acute fracture or dislocation. Moderate degenerative disease of the spine. Grade 1 anterolisthesis of L5 on S1 with bilateral pars interarticularis defects. IMPRESSION: Large bowel obstruction with transition at the site of diverticulitis involving the descending colon. There is marked dilation of the cecum measuring 9.5 centimeters with fluid in the right pericolic gutter, concerning for impending cecal perforation. Improved descending colonic diverticulitis with near-complete resolution of the previously noted abscess and decreased surrounding inflammatory changes. Please note that all CT scans at this facility use dose modulation, iterative reconstruction, and/or weight-based dosing when appropriate to reduce radiation dose to as low as reasonably achievable. Dictated by Bonnie Christiansen MD @ 02/05/2024 3:54:37 PM (Electronically Signed)
[2024-02-05] MEDS: 0.9 % SODIUM CHLORIDE 1000 ml 1,000 ML IV (15:00)
[2024-02-05 16:32] LABS: Lactate* 1.1 mmol/L (0.5-1.9)
[2024-02-05 16:35] LABS: Basophils Absolute Auto 0.01 K/uL (0.00-0.30); Basophils Percent Auto 0.1 % (0.0-3.0); Eosinophils Absolute Auto 0.09 K/uL (0.00-0.50); Hematocrit 45.4 % (37.0-53.0); Hemoglobin* 14.7 gm/dL (13.5-17.5); Immature Granulocytes Abs Auto 0.02 K/uL (0.00-0.30); Immature Granulocytes Pct Auto 0.2 %; Lymphocytes Percent Auto 14.7 % (20-44); Mean Corpuscular HGB Conc 32 gm/dL (32-36); Mean Corpuscular Hemoglobin 28 pg (26-34); Mean Corpuscular Volume 88 fL (80-100); Monocytes Percent Auto 9.6 % (0.0-11.0); Neutrophils Percent Auto 74.4 % (42.0-72.0); Platelet Count* 301 K/uL (140-440); RDW Coefficient of Variation % 13.7 % (11.5-15.5); Red Blood Count 5.18 m/uL (4.30-5.90); White Blood Count* 8.58 K/uL (4.50-11.00)
[2024-02-05 16:39] LABS: Slide Review Reflex No
[2024-02-05 16:58] LABS: Chloride* 103 mmol/L (96-114); Potassium* 4.9 mmol/L (3.6-5.1); Sodium* 134 mmol/L (135-149)
[2024-02-05 17:01] LABS: Anion Gap 8 mEq/L (7-15); Blood Urea Nitrogen* 23 mg/dL (7-30); Carbon Dioxide* 23 mmol/L (20-32); Est. Creatinine Clearance* 71.12; Estimated Glomerular Filt Rate 80 ml/min; Glucose* 97 mg/dL (60-115)
[2024-02-05 17:02] LABS: Calcium* 8.7 mg/dL (8.4-10.6)
--- NOTE | 2024-02-05 19:17 | PM.GSHP ---
History of Present Illness History of Present Illness Date Seen: 02/05/24 Chief complaint: been given IV antibiotics-nausea/vomit/diarhea Narrative: Juan Ozuna is a 73 year old male presented to emergency room with multiple episodes of vomiting. Patient was discharged from the hospital 1 week ago on IV antibiotics. He was treated for sigmoid diverticulitis with [place] colonic abscess. Patient has been coming in for IV antibiotics daily. He states that when he left the hospital he did not have abdominal pain and continues not to have abdominal pain. However, his abdomen is more protuberant per his . Patient had multiple episodes of projectile vomiting yesterday. Since his discharge from the hospital 7 days ago he only had a small single bowel movement. And then today had multiple episodes of diarrhea. He was recommended to come to the emergency room. Patient's last colonoscopy was over 10 years ago. I personally reviewed his workup in the emergency room. His WBC was normal. An abdominal CT was obtained that showed near resolution of his inflammation in the descending colon, however his right sided colon and his cecum were markedly dilated with a transition point in his descending colon at the site of his previous inflammation. Review of Systems Narrative: General: no fevers HENT: no problems swallowing CV: no shortness of breath Resp: no cough GI: No nausea, vomiting, abdominal pain : no dysuria, no increased urinary frequency, no hematuria Skin: no new rashes Musculoskeletal: no back pain Neuro: no muscle weakness Psyche: no depression, no anxiety PFSH PFS Medical History (Updated 02/05/24 @ 19:28 by Mercedes Bolton MD) Prostate cancer ?C61 - Malignant neoplasm of prostate (ICD-10) Diverticulitis ?K57.92 - Diverticulitis of intestine, part unspecified, without perforation or abscess without bleeding (ICD-10) Hyperlipidemia ?E78.5 - Hyperlipidemia, unspecified (ICD-10) Hypertension ?I10 - Essential (primary) hypertension (ICD-10) Surgical History History of right inguinal hernia repair ?Z98.890 - Other specified postprocedural states (ICD-10) ?Z87.19 - Personal history of other diseases of the digestive system (ICD-10) History of umbilical hernia repair ?Z98.890 - Other specified postprocedural states (ICD-10) ?Z87.19 - Personal history of other diseases of the digestive system (ICD-10) History of robot-assisted laparoscopic radical prostatectomy ?Z90.79 - Acquired absence of other genital organ(s) (ICD-10) Family History (System 02/05/24 @ 13:55 by Rosaura Acosta) Mother Breast cancer Sister Breast cancer Father Prostate cancer Heart disease Social History Narrative: He is and lives with his , Cathy, who is healthcare power of assistant county attorney. Code status is full. He does not smoke. Does not drink alcohol. What is your current living situation?: I presently have a place to live Problems where you live: no known problems Problems where you live details: na In the past 12 months, utilities in danger of being shut off: no In past 12 months, lack of transportation kept you from medical appts, meetings, work, or getting things needed for daily living: no In the past 12 mos, have been you worried that your food would run out before you had money to buy more?: never true In the past 12 mos, the food you bought just didn't last and you didn't have money to buy more?: never true Highest level of school completed/degree received: Bachelor's degree Smoking Status: Never smoker Do you use any of these nicotine containing products: None Second hand tobacco smoke exposure: No How often do you have a drink containing alcohol: never AUDIT-C Alcohol total score: 0 Non-prescribed substance use: denies use Caffeine: Yes How often does anyone, including family, friends and others, physically hurt you: never How often does anyone, including family, friends and others, insult or talk down to you: never How often does anyone, including family, friends and others, threaten you with harm: never How often does anyone, including family, friends and others, scream or curse at you: never service: No Meds Home Medications and Allergies Home Medications ?Medication ?Instructions ?Recorded ?Confirmed ?Type amlodipine 5 mg tablet 5 mg PO DAILY 01/28/24 02/03/24 History lisinopril 20 mg tablet 20 mg PO DAILY 01/28/24 02/03/24 History rosuvastatin 10 mg tablet 10 mg PO Q48H 01/28/24 02/03/24 History Allergies Allergy/AdvReac Type Severity Reaction Status Date / Time No Known Drug Allergies Allergy Verified 02/05/24 15:29 Exam Narrative: Exam Narrative: General appearance: Alert, cooperative, and in no distress Pulmonary: Chest symmetric, lungs clear bilaterally Cardiovascular Heart: Regular rate and rhythm, S1, S2, no murmurs/rubs/gallops Gastrointestinal Abdominal: soft, distended, not tender to palpation. Skin: Normal skin color, texture, and turgor. No rashes or lesions. Psychiatric: Alert, cooperative, normal affect. Const: Vital Signs, click to edit/add: Vital Signs - 24 hr 02/05/24 14:13 Temperature 97.8 F Pulse Rate [Right Pulse Oximeter] 83 Respiratory Rate 18 Blood Pressure [Ri ght Upper Arm] 133/81 Pulse Oximetry 97 Oxygen Delivery Me thod Room Air Progress Note:A&P Assessment and plan (1) Colonic obstruction: Status: Acute Assessment and Plan: 73-year-old male with recent episode of descending colon diverticulitis with pericolonic abscess presents now with vomiting and abdominal distension. I discussed with the patient and his his CT findings. His WBC is normal. His CT shows near resolution of his abscess and only small amount residual inflammation near the descending colon. However his transverse colon and cecum is dilated with the transition point near his diverticulitis. This is concerning for either diverticular stricture or colon cancer (since his WBC is normal). Given patient's obstructive symptoms after over 1 week of IV antibiotic treatment and his dilated proximal colon, I recommended to proceed with exploratory laparotomy, descending colectomy, and end colostomy. I discussed the procedure with the patient in detail. If his right colon is severely dilated and compromised, we would have to proceed with the right hemicolectomy as well. The risks associated with the procedure including infection, bleeding, the need for additional procedures, and colostomy, as well as other complications were all discussed with the patient, and he agreed to proceed.
[2024-02-05] MEDS: LACTATED RINGERS 1000 ML 1,000 ML 100 ML IV ×2 (19:31→21:22)
[2024-02-05] MEDS: PIPERACILLIN/TAZOBACTAM 3.375 GM in 0.9 % SODIUM CHLORIDE Mini-bag 100 ML IVPB (19:55)
--- NOTE | 2024-02-05 20:25 | W.ANESCHARGE ---
Anesthesia Charges Start Date/Time Anesthesia Start Date: 02/05/24 Anesthesia Start Time: 19:39 Stop Date/Time Anesthesia Stop Date: 02/06/24 Anesthesia Stop Time: 01:54 Summary Emergency: TAX ATTORNEY Extremes of Age - Over 70 or under 1: TAX ATTORNEY
--- NOTE | 2024-02-05 20:25 | P.ANES_ITS ---
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
[2024-02-06] VITALS (29 sets, daily range): BP systolic 75–123; BP diastolic 50–74; PULSE 69–95; RESP 14–22; TEMP 35.9–37.2; O2SAT 88–97
[2024-02-06] MEDS: LACTATED RINGERS 1000 ML 1,000 ML 100 ML IV ×3 (00:38→20:56)
[2024-02-06] MEDS: ACETAMINOPHEN INJ 1,000 MG/100 ML VIAL 400 MG IVPB (00:38)
[2024-02-06] MEDS: KETOROLAC 30 MG/ML inj IVP (00:39)
--- NOTE | 2024-02-06 00:57 | W.PM.NB ---
Nerve Block Nerve Block Time Seen by Provider: 01:40 Date Seen: 02/06/24 Type of block requested by surgeon for post-operative analgesia: TAP Side: bilateral Time out performed: Yes Verification of patient name: Yes Verification of date of : Yes Name of person performing procedure: Brianauc Continuous monitoring Was continuous monitoring of O2 sat, B/P, speech language pathologist, recorded every 15 minutes?: Yes Procedure Checklist: sterile prep, needles and gloves Ultrasound guided. Images saved: Yes Medications given in 5ml increments after negative aspiration: Marcaine %: 0.25 mL: 30 Needle gauge: 21 and Exparel mL: 10 Needle gauge: 21 Patient tolerated procedure well: Yes Block Charges Block Charge (with Pro Fee): TAP Bilateral Use of Ultrasound Machine for Block: Yes- US Guidance/pain block
--- NOTE | 2024-02-06 00:57 | SUR.OPER ---
PT. FAMILY UPDATED BY PHONE CALL AT 12:58.
--- NOTE | 2024-02-06 02:02 | P.GSOP_ITS ---
Operative Note Date of procedure: 02/05/24 Pre-op diagnosis: 1. Colonic obstruction. 2. Recent episode of diverticulitis with pericolonic abscess and IV antibiotic treatment. 3. s/p umbilical hernia repair with mesh. Post-op diagnosis: Same Type of Procedure: 1. Exploratory laparotomy. 2. Descending colectomy. 3. End proximal descending colostomy with sigmoid mucous fistula. 4. Partial omentectomy. 5. Excision of umbilical mesh. Indications: 73-year-old male presented to emergency room with vomiting and abdominal distension. Patient was hospitalized with descending diverticulitis and pericolic abscess. Patient was treated with IV antibiotics and was discharged home on IV antibiotics. He denied abdominal pain at home but only had 1 small bowel movement in the last 10 days. He was passing gas. Yesterday he vomited multiple times and that was described as projectile vomiting. When he presented today for IV antibiotic treatment, he was referred to ER. In the emergency room he was found to have normal WBC. An abdominal CT was obtained that showed near resolution of his inflammation near the descending colon with proximal transverse colonic dilatation down to the cecum with cecal dilatation up to 9.5 cm. On clinical exam patient had distended abdomen that was soft and not tender to palpation. Given patient's clinical history and his physical exam, descending colon obstruction was suspected either due to recent diverticulitis or colon mass, and exploratory laparotomy with descending colectomy was recommended. The procedure was discussed in detail. The risks associated procedure including infection, bleeding, injury to internal organs, creation of colostomy, possible right hemicolectomy, and the need for additional procedures were all discussed with the patient, and he agreed to proceed. Procedure Description: After discussing the risks and benefits of the procedure, the patient signed informed consent.? The operative site was marked and the patient was brought to the operating room and placed on the operating table in supine position.? Care was taken to pad the patient's pressure points.?? The patient was then intubated by anesthesia.? Peck catheter was placed under sterile conditions.? The operative site was then prepped and draped in the usual sterile fashion.? A time-out was then performed. Midline laparotomy incision was made with a scalpel. Subcutaneous tissues were divided with cautery. Firm mesh was palpated around the umbilicus and was approximately 6 cm in diameter. The anterior fascia was grasped with Sera clamps at the superior part of the incision in epigastrium and incised with Metzenbaum scissors. The posterior sheath and peritoneum were also grasped with Cate clamps and incised with Metzenbaum scissors. The abdomen was entered. This fascial incision was then extended superiorly and inferiorly. Near the umbilicus omental adhesions were palpated intra-abdominally. The fascial incision was made around the round appearing mesh. This mesh appeared to be preperitoneal. The omental adhesions to the mesh were then taken down with Metzenbaum scissors and cautery until omentum was mobilized. The sigmoid colon was adherent to the anterior lower abdomen, and those adhesions were taken down with Metzenbaum scissors and cautery. Sigmoid colon was very redundant. The firm segment of descending colon was palpated and was tightly adherent to the lateral abdominal wall. The right colon was briefly examined and appeared to be quite dilated but perfused with no serosal tears. Omni retractor was then placed and we proceeded with mobilizing the descending colon. The descending colon was mobilized off the lateral abdominal wall with cautery and blunt dissection/finger fracture. These adhesions were fairly dense most likely due to patient's recent abscess. The white line of Toldt on left was a lso incised and the proximal sigmoid colon as well as descending colon was mobilized along the entire lateral abdominal wall. The proximal descending colon, transverse colon, and right-sided colon were all dilated but were perfused. Small bowel was minimally dilated. When the descending colon was mobilized off the lateral abdominal wall, we then proceeded with mobilizing it of the retroperitoneum and Gerota's fascia. The firm diseased segment of the descending colon was tightly adherent to Gerota fascia and the fascia was incised to mobilize the descending colon off Gerota's fat. This dissection was then extended towards the splenic flexure. Mobilization of the splenic flexure was extremely difficult. There were multiple omental adhesions to the proximal descending colon and between the transverse colon and descending colon. Omental adhesions were taken down with cautery and LigaSure device. Partial omentectomy was performed to decrease the burden of the omentum on the proximal descending colon and transverse colon in preparation for end colostomy. Dissection around the splenic flexure was then carried towards the mid transverse colon and the gastrocolic ligament was divided with LigaSure device. When the splenic flexure was fairly mobile, we proceeded with descending colectomy. The distal descending colon was divided with a MORAIMA stapler at the transition from the descending to sigmoid colon. The descending colon mesentery was then divided with LigaSure device near retroperitoneum to include as much of colonic mesentery as possible with the specimen. Left colic vascular pedicle was controlled with clamps and Vicryl ties. At least 5 cm proximally and distally to the firm mass were included in the specimen. The proximal descending colon/distal transverse was then divided at the level of the splenic flexure. This was done with blue load of MORAIMA stapler. The specimen was passed off the field and sent to pathology with excised omental segments. We then used indocyanine green (I-SPY kit) to evaluate perfusion of the right colon. The right colon and cecum was well perfused. The cecum was then again visually examined. Scarred like appearance of the serosa was noted in multiple areas and only one area was concerning for possible serosal tear. This was oversewn with 3-0 silk Lembert sutures. This was done after the proximal staple line (transverse colon) was opened in the corner by excising the staple line and allowing some stool and air to decompress from the colon. This opening was then oversewn with Vicryl stitch ties to decrease contamination. I then proceeded with creating an end colostomy and sigmoid mucous fistula. Anterior fascia on the left side was grasped with Sera clamps and retracted towards midline. A left upper quadrant oval skin incision was made with cautery. The skin and subcutaneous fat in this colostomy skin incision was then excised in a colon like fashion down to the anterior fascia. The anterior fascia was then incised in a cruciate fashion and rectus muscles were retracted medially and laterally. The posterior sheath and peritoneum were incised with cautery as well. The rectus muscle had to be further divided medially and laterally to accommodate evisceration of dilated distal transverse colon and sigmoid mucous fistula. The distal transverse colon was grasped with Eugenie clamps and eviscerated through this new left upper quadrant colostomy incision. The sigmoid colon barely reached to this incision mostly due to its redundancy. The corner of the sigmoid colon staple line was eviscerated inferior to the colostomy. The abdomen was irrigated with normal saline. The omentum was still abundant and was placed over the small intestine. We then proceeded with fascial closure. The periumbilical mesh was firm to palpation and was making it difficult to close the abdomen. I elected to excise this mesh, which was done with cautery. The mesh was sent to pathology. The midline laparotomy incision was then closed with 2 running 0-0 Maxon sutures. Dermis was reapproximated with interrupted 3-0 Vicryl sutures. The midline incision was then irrigated with normal saline. The skin of the midline incision was then closed with sirena. This incision was covered with clean sterile dressings. We then proceeded with maturing and colostomy. The distal transverse end colostomy was sutured to the anterior fascia with interrupted 2-0 Vicryl sutures. The corner of eviscerated sigmoid mucous fistula was also should sutured in place to the anterior fascia with Vicryl sutures. The staple line of the transverse end colostomy was then excised with cautery, brooked and sutured in place to the dermis of the colostomy incision. Inferiorly, the mucous sigmoid fistula was sutured to the end colostomy mucosa and serosa superiorly and circumferentially was sutured to the dermis of the skin with Vicryl sutures. The sigmoid mucous fistula lumen was patent. The end colostomy was intubated with my finger and was patent and not tight. Copious amounts of liquid stool came out from the end colostomy after maturation. Ostomy appliance was placed over the end colostomy. All counts were correct at the end of the case. ? The patient was then woken and transported to the recovery area in stable condition. ? The patient tolerated the procedure well. Findings: Thickened firm to palpation short segment of descending colon with no lymphadenopathy. Proximal transverse colon was dilated with largely dilated cecum that was viable. Anesthesia: GETA Surgeon: Mercedes Bolton MD Estimated blood loss (mL): 100 Additional Specimen Information: 1. Umbilical mesh. 2. Descending colon with partial omentectomy. Condition: stable Disposition: PACU
[2024-02-06] MEDS: PHENYLEPHRINE 100 MCG/ML SYRINGE IVP (02:09)
[2024-02-06] MEDS: LACTATED RINGERS 1000 ML 1,000 ML 200 ML IV ×2 (02:36→06:47)
--- NOTE | 2024-02-06 06:50 | PC.NURSE ---
END OF SHIFT NOTE: PT ARRIVED TO UNIT @0251 FROM PACU. A&O. DENIES CP, SOB, N/V. PT REMAINED IN BED THIS SHIFT; TURN AND REPO NEEDED FOR COMFORT. SRIVASTAVA IN PLACE AND PATENT. COLOSTOMY WITH BROWN LIQUID OUTPUT.?MIDLINE INCISION STAPLED AND DRESSING APPLIED C/D/I. NG TO LIS WITH DARK BROWN/GREEN OUTPUT. VSS ON RA WITH SOFT BP?S; MAPS >65mmHG; AFEBRILE.?BED ALARM ON AND CALL LIGHT WITHIN PT?S REACH.
[2024-02-06 07:50] LABS: HCO3 VBG 25 mmol/L (21-28); Lactate* 1.5 mmol/L (0.5-1.9); PCO2 VBG 44 mmHG (40-50); PO2 VBG 37.2 mmHG (25-47); pH VBG 7.357 (7.32-7.43)
[2024-02-06 07:52] LABS: Lab Add On Test New Spec Needed
[2024-02-06 08:05] LABS: Hematocrit 39.1 % (37.0-53.0); Hemoglobin* 12.5 gm/dL (13.5-17.5); Immature Granulocytes Pct Auto 0.2 %; Lymphocytes Percent Auto 2.8 % (20-44); Mean Corpuscular HGB Conc 32 gm/dL (32-36); Mean Corpuscular Hemoglobin 29 pg (26-34); Mean Corpuscular Volume 89 fL (80-100); Platelet Count* 298 K/uL (140-440); RDW Coefficient of Variation % 14.1 % (11.5-15.5); Red Blood Count 4.39 m/uL (4.30-5.90); White Blood Count* 22.86 K/uL (4.50-11.00)
[2024-02-06 08:16] LABS: Albumin* 2.9 g/dL (3.3-5.0); Chloride* 105 mmol/L (96-114); Sodium* 135 mmol/L (135-149)
[2024-02-06 08:17] LABS: Potassium* 4.7 mmol/L (3.6-5.1)
[2024-02-06 08:18] LABS: Creatinine* 1.3 mg/dL (0.5-1.5); Est. Creatinine Clearance* 54.71; Estimated Glomerular Filt Rate 58 ml/min
[2024-02-06 08:19] LABS: Alkaline Phosphatase* 45 U/L (40-150); Anion Gap 6 mEq/L (7-15); Aspartate Amino Transferase* 26 U/L (12-35); Bilirubin Total* 1.2 mg/dL (0.1-1.5); Blood Urea Nitrogen* 29 mg/dL (7-30); Carbon Dioxide* 24 mmol/L (20-32); Glucose* 146 mg/dL (60-115); Lipase* 20 U/L (23-300); Total Protein* 5.4 g/dL (6.0-8.3)
[2024-02-06 08:20] LABS: Alanine Aminotransferase* 14 U/L (4-50); Magnesium* 2.2 mg/dL (1.5-2.6)
[2024-02-06 08:22] LABS: C Reactive Protein* 5.1 mg/dL (0.5-1.0)
[2024-02-06 08:27] LABS: INR 1.16 (0.91-1.10); Prothrombin Time 15.5 Seconds
[2024-02-06 08:31] LABS: Slide Review Reflex Yes
[2024-02-06 08:33] LABS: NT Pro B Type NatriureticPept* 90 pg/mL; Troponin I* < 0.01 ng/mL (0.01-0.04)
[2024-02-06 08:56] LABS: Slide Review Acceptable Review (Acceptable)
[2024-02-06] MEDS: 0.9 % SODIUM CHLORIDE 1000 ml 1,000 ML IV (09:08)
--- NOTE | 2024-02-06 09:12 | PM.IMCN1 ---
Date of Consult Consult date: 02/06/24 Requesting Physician: General Surgery Primary Care Provider: Raymond Hurst MD Consult Narrative Reason for consult: Narrative: HOSPITALIST CONSULT Hospital Day # 1 Post Op Day # 0 (0200 this morning/Dr. Bolton) EBL 100CC 1. Exploratory laparotomy. 2. Descending colectomy. 3. End proximal descending colostomy with sigmoid mucous fistula. 4. Partial omentectomy. 5. Excision of umbilical mesh. The hospital medicine team was asked by General Surgery team to manage the patient's HTN, complicated diverticulitis, advanced age There have been no perioperative concerns or questions. Afebrile since surgery Blood pressure 116/66, up from 100/74 Pulse rate in the 70s Respiratory rate unlabored, 14 On room air at 95% Labs White count was 8.5 yesterday in the ED, 22.8 this morning. Likely demargination post surgery. Hemoglobin stable 12.5, likely hemoconcentrated yesterday at 14.7. Baseline at last admission was 12.4 INR is normal Blood gas this morning is reassuring with a pH of 7.3 and a pCO2 of 44, bicarb 25. This morning his electrolytes are normal. He has a mild DAI with a creatinine that has bumped from 0.8-1.3. Glucose 146 Magnesium normal LFTs and troponin and lipase are normal CRP 5.1 I updated [facility] and Medications and Allergies in the Expanse tabs REVIEW OF SYSTEMS: 12-point ROS completed with patient and negative unless otherwise stated in HPI or below. PHYSICAL EXAM: CODE STATUS: FULL CODE CONSTITUTIONAL: looks uncomfortable with NG tube but is still smiling and making a few jokes. denies pain. hates the NG. VITAL SIGNS: see record. HEENT: Normocephalic, atraumatic. PERRL, EOMI, conjunctivae pink, no scleral icterus. Ears and nose externally normal. Pharynx normal. NECK: No JVD. No carotid bruit, no thyromegaly, no adenopathy. CHEST: Clear to auscultation bilaterally HEART: No harsh murmurs. S1/S2. ABDOMEN: obese, less distended than when I saw him at the [facility]. surgical dressing dry; ostomy is pink, bag has liquid stool EXTREMITIES: No edema. NEURO: Cranial nerves intact. Normal affect. No gross deficits. Speech intelligible. SKIN: No rashes, petechiae, concerning changes PSYCHIATRIC: Euthymic. INVESTIGATIONS: EMR Reviewed [facility]: [facility], lovenox at 24 hours GI: PPI; advance once NG is out [facility] Medical History (Updated 02/06/24 @ 12:10 by Joan Espitia MD) Colostomy in place ?Z93.3 - Colostomy status (ICD-10) Diverticulitis of intestine with perforation and abscess ?K57.80 - Diverticulitis of intestine, part unspecified, with perforation and abscess without bleeding (ICD-10) Prostate cancer ?C61 - Malignant neoplasm of prostate (ICD-10) Hyperlipidemia ?E78.5 - Hyperlipidemia, unspecified (ICD-10) Hypertension ?I10 - Essential (primary) hypertension (ICD-10) Surgical History History of right inguinal hernia repair ?Z98.890 - Other specified postprocedural states (ICD-10) ?Z87.19 - Personal history of other diseases of the digestive system (ICD-10) History of umbilical hernia repair ?Z98.890 - Other specified postprocedural states (ICD-10) ?Z87.19 - Personal history of other diseases of the digestive system (ICD-10) History of robot-assisted laparoscopic radical prostatectomy ?Z90.79 - Acquired absence of other genital organ(s) (ICD-10) Family History (System 02/05/24 @ 13:55 by Rosaura Acosta) Mother Breast cancer Sister Breast cancer Father Prostate cancer Heart disease Social History Narrative: He is and lives with his , Cathy, who is healthcare power of employee benefits attorney. Code status is full. He does not smoke. Does not drink alcohol. What is your current living situation?: I presently have a place to live Problems where you live: no known problems Problems where you live details: NONE In the past 12 months, utilities in danger of being shut off: no In past 12 months, lack of transportation kept you from medical appts, meetings, work, or getting things needed for daily living: no In the past 12 mos, have been you worried that your food would run out before you had money to buy more?: never true In the past 12 mos, the food you bought just didn't last and you didn't have money to buy more?: never true Highest level of school completed/degree received: Bachelor's degree Smoking Status: Never smoker Do you use any of these nicotine containing products: None Second hand tobacco smoke exposure: No How often do you have a drink containing alcohol: never AUDIT-C Alcohol total score: 0 Non-prescribed substance use: denies use Caffeine: Yes How often does anyone, including family, friends and others, physically hurt you: never How often does anyone, including family, friends and others, insult or talk down to you: never How often does anyone, including family, friends and others, threaten you with harm: never How often does anyone, including family, friends and others, scream or curse at you: never service: No Meds Home Medications and Allergies Home Medications ?Medication ?Instructions ?Recorded ?Confirmed ?Type amlodipine 5 mg tablet 5 mg PO DAILY 01/28/24 02/06/24 History lisinopril 20 mg tablet 20 mg PO DAILY 01/28/24 02/06/24 History rosuvastatin 10 mg tablet 10 mg PO Q48H 01/28/24 02/06/24 History ertapenem 1 gram solution for 1 g IV DAILY 02/06/24 02/06/24 History injection Allergies Allergy/AdvReac Type Severity Reaction Status Date / Time No Known Drug Allergies Allergy Verified 02/05/24 15:29 Exam Const: Vital Signs, click to edit/add: Vital Signs - 24 hr 02/05/24 14:13 02/06/24 01:49 02/06/24 01:55 Temperature 97.8 F 97.7 F Pulse Rate 87 86 Pulse Rate [Pulse Oximeter] Pulse Rate [Right Pulse Oximeter] 83 Respiratory Rate 18 18 20 Blood Pressure 99/50 L 81/55 L Blood Pressure [Le ft Arm] Blood Pressure [Ri ght Upper Arm] 133/81 Pulse Oximetry 97 94 97 Oxygen Delivery Me thod Room Air OxyMask OxyMask Oxygen Flow Rate 10 10 02/06/24 02:00 02/06/24 02:05 02/06/24 02:10 Temperature 97.9 F Pulse Rate 85 81 87 Pulse Rate [Pulse Oximeter] Pulse Rate [Right Pulse Oximeter] Respiratory Rate 22 20 20 Blood Pressure 94/57 L 75/53 L 108/73 Blood Pressure [Le ft Arm] Blood Pressure [Ri ght Upper Arm] Pulse Oximetry 96 97 97 Oxygen Delivery Me thod OxyMask OxyMask OxyMask Oxygen Flow Rate 10 10 6 02/06/24 02:15 02/06/24 02:20 02/06/24 02:25 Temperature 97.8 F Pulse Rate 87 89 89 Pulse Rate [Pulse Oximeter] Pulse Rate [Right Pulse Oximeter] Respiratory Rate 18 20 16 Blood Pressure 101/71 109/67 98/54 L Blood Pressure [Le ft Arm] Blood Pressure [Ri ght Upper Arm] Pulse Oximetry 96 95 94 Oxygen Delivery Me thod Blow By Blow By Room Air Oxygen Flow Rate 6 6 02/06/24 02:30 02/06/24 02:35 02/06/24 02:40 Temperature 97.8 F Pulse Rate 84 82 85 Pulse Rate [Pulse Oximeter] Pulse Rate [Right Pulse Oximeter] Respiratory Rate 18 16 16 Blood Pressure 106/68 123/66 111/68 Blood Pressure [Le ft Arm] Blood Pressure [Ri ght Upper Arm] Pulse Oximetry 95 93 95 Oxygen Delivery Me thod Room Air Room Air Room Air Oxygen Flow Rate 02/06/24 02:45 02/06/24 02:55 02/06/24 03:00 Temperature 97.8 F 96.6 F L Pulse Rate 86 85 Pulse Rate [Pulse Oximeter] Pulse Rate [Right Pulse Oximeter] Respiratory Rate 16 16 16 Blood Pressure 119/71 110/69 Blood Pressure [Le ft Arm] Blood Pressure [Ri ght Upper Arm] Pulse Oximetry 94 88 88 Oxygen Delivery Me thod Room Air Room Air Room Air Oxygen Flow Rate 02/06/24 03:00 02/06/24 03:00 02/06/24 03:15 Temperature 96.6 F L 96.8 F L Pulse Rate 76 Pulse Rate [Pulse Oximeter] 85 Pulse Rate [Right Pulse Oximeter] Respiratory Rate 16 16 16 Blood Pressure 94/63 Blood Pressure [Le ft Arm] 110/69 Blood Pressure [Ri ght Upper Arm] Pulse Oximetry 88 88 90 Oxygen Delivery Me thod Room Air Room Air Room Air Oxygen Flow Rate 02/06/24 03:30 02/06/24 03:36 02/06/24 03:45 Temperature 96.7 F L 97.8 F 96.7 F L Pulse Rate 73 73 Pulse Rate [Pulse Oximeter] Pulse Rate [Right Pulse Oximeter] Respiratory Rate 14 16 Blood Pressure 108/60 94/55 L Blood Pressure [Le ft Arm] Blood Pressure [Ri ght Upper Arm] Pulse Oximetry 93 91 Oxygen Delivery Me thod Room Air Room Air Oxygen Flow Rate 02/06/24 04:00 02/06/24 04:30 02/06/24 05:00 Temperature 96.6 F L 96.8 F L 97.1 F L Pulse Rate 72 70 71 Pulse Rate [Pulse Oximeter] Pulse Rate [Right Pulse Oximeter] Respiratory Rate 14 14 14 Blood Pressure 97/54 L 93/55 L 98/60 Blood Pressure [Le ft Arm] Blood Pressure [Ri ght Upper Arm] Pulse Oximetry 92 90 92 Oxygen Delivery Me thod Room Air Room Air Room Air Oxygen Flow Rate 02/06/24 06:00 02/06/24 07:00 02/06/24 07:00 Temperature 97.0 F L 98.6 F Pulse Rate 69 69 Pulse Rate [Pulse Oximeter] 73 Pulse Rate [Right Pulse Oximeter] Respiratory Rate 14 14 14 Blood Pressure 107/57 L 100/74 Blood Pressure [Le ft Arm] Blood Pressure [Ri ght Upper Arm] Pulse Oximetry 93 94 Oxygen Delivery Me thod Room Air Room Air Oxygen Flow Rate 02/06/24 07:00 02/06/24 08:00 Temperature 98.6 F Pulse Rate 73 Pulse Rate [Pulse Oximeter] Pulse Rate [Right Pulse Oximeter] Respiratory Rate 14 14 Blood Pressure 116/66 Blood Pressure [Le ft Arm] Blood Pressure [Ri ght Upper Arm] Pulse Oximetry 94 95 Oxygen Delivery Me thod Room Air Room Air Oxygen Flow Rate Labs Labs: Short CBC 02/05/24 02/06/24 Range/Units 16:25 07:44 WBC 8.58 22.86 H (4.50-11.00) K/uL Hgb 14.7 12.5 L (13.5-17.5) gm/dL Hct 45.4 39.1 (37.0-53.0) % Plt Count 301 298 (140-440) K/uL BMP 02/05/24 02/06/24 16:25 07:44 Sodium 134 L 135 Potassium 4.9 4.7 Chloride 103 105 Carbon Dioxide 23 24 BUN 23 29 Creatinine 1.0 1.3 Glucose 97 146 H Calcium 8.7 8.0 L Cardiac Enzymes 02/06/24 Range/Units 07:44 Troponin I < 0.01 L (0.01-0.04) ng/mL Liver Function 02/06/24 Range/Units 07:44 Total Bilirubin 1.2 (0.1-1.5) mg/dL AST 26 (12-35) U/L ALT 14 (4-50) U/L Alkaline Phosphatase 45 (40-150) U/L Albumin 2.9 L (3.3-5.0) g/dL Assessment and Plan Assessment and plan (1) Colonic obstruction: Problem comment: -ex lap 02/05; Dr. Bolton -stable; colostomy/NG/Peck all examined -IVF @ LR 100cc/hr; mild DAI noted -leukocytosis -monitor vitals, fluid and electrolyte management, infection control, resumption of bowel function, pain management. -ertapenem 1 gram IV q24 Status: Acute (2) Diverticulitis of intestine with perforation and abscess: Problem comment: -admitted to [facility] from 01/27 - 01/30. -discharged on IV ertapenem (plan was for 14 days) -at IV abx infusion appt on 02/04 - weak, anorexia, projectile vomiting, hypotension --> sent to the ED --> colonic obstruction --> ex lap early am of 02/05 Status: Acute (3) Hyperlipidemia: Problem comment: continue statin when taking PO Status: Acute (4) Hypertension: Problem comment: continue lisinopril and norvasc when taking PO and bp stable Status: Acute (5) DAI (acute kidney injury): Problem comment: -pre-renal from obstruction and poor intake -fluid bolus today; ongoing IVF -monitor Status: Acute (6) Colostomy in place: Status: Acute
--- NOTE | 2024-02-06 09:24 | NUTR.NU ---
RDN with nutrition screen related to positive MST score. Patient admitted for multiple episodes of vomiting, found to have colonic obstruction. Patient was in the hospital about 1 week about for sigmoid diverticulitis with Irene colonic abscess. Patient underwent ex. lap. and descending colectomy with colostomy placed 02/05/24. Current diet is NPO. Current weight 240 lb ; height 5ft 11in; BMI 33.5 kg/m2. Patient's weight has been stable per weight history. Positive MST score for poor appetite and weight loss recently. Not appropriate to visit with patient at this time. Once diet advances and patient is tolerating at least a full liquid diet, RDN will visit at next shift and offer diet education related to colostomy. RDN will continue to monitor.
[2024-02-06] MEDS: ERTAPENEM 1 GM in 0.9 % SODIUM CHLORIDE Mini-bag 100 ML IVPB (10:23)
[2024-02-06] MEDS: PANTOPRAZOLE SODIUM 40 MG INJ IVP (13:08)
[2024-02-06] MEDS: LACTATED RINGERS 1000 ML 1,000 ML IV (15:30)
--- NOTE | 2024-02-06 16:10 | PC.SOCIAL ---
Social work consult: washtub worker helper attempted to meet with pt twice today. Pt was sleeping both times and did not awake to this worker's voice. Pt will be in the hospital through the weekend. washtub worker helper will plan to meet with the pt on Friday to check-in on any needs or questions he may have for when he discharges from the hospital. Social work to follow-up as needed.
--- NOTE | 2024-02-06 18:39 | PC.NURSE ---
End of shift: Patient pleasant and cooperative, alert and oriented x4. Patient NPO, few ice chips offered to keep mouth moist. Patients NG to left Nare @ 73cm, patent and hooked to low intermitt. suctioning. Clamped for ambulation in hallway. Patient up to chair and ambulating hallway. Tolerating activity well. Peck is patent and draining straw colored urine. output low throughout shift, MD notified of low output and low BP, patient received 2 Bolus'. see eMAR. Colostomy to left upper abd is beefy red and output is still residual BM prior to surgery. IV to L AC patent and running LR @ 100mls/hr, 18G to L wrist SL. Midline inc. covered with ABD, C/D/I. Active ice to site.
--- NOTE | 2024-02-06 19:43 | RESP.RT ---
Patient admitted yesterday and was very lethargic. Patient would fall asleep mid sentence. While sleeping long apnic periods were observed and SATs would drop into the 70s. VBG and End Tidal readings were normal during these periods. CPAP was attempted, but patient Vt was only 150ml with a RR of 22. BiPAP was initiated to help purely with work of breathing and to allow for the patient to rest comfortably overnight. CT scan shows fluid compressing his left lung, so there is significant consolidation of his left lung. Patient SATs today have remained in the mid to upper 90s on room air. Recommended that patient sleep with BiPAP on tonight to allow for a restful sleep, and then have a 24hr trial on room air and no BiPAP support for rest.
[2024-02-06] MEDS: HYDROmorphone 0.5 mg/0.5 ml inj IVP ×4 (20:03→23:59)
[2024-02-06] MEDS: phenoL 1.4 % THROAT SPRAY 1 SPRAY MUCOUS MEM (20:04)
[2024-02-07] VITALS (8 sets, daily range): BP systolic 105–147; BP diastolic 71–84; PULSE 85–100; RESP 16–20; TEMP 36.3–37; O2SAT 91–95
[2024-02-07] MEDS: HYDROmorphone 0.5 mg/0.5 ml inj IVP ×6 (03:16→20:11)
[2024-02-07] MEDS: LACTATED RINGERS 500 ML 500 ML IV (03:16)
[2024-02-07] MEDS: LACTATED RINGERS 1000 ML 1,000 ML 125 ML IV ×3 (04:19→20:12)
--- NOTE | 2024-02-07 06:24 | PC.NURSE ---
End of shift note: Pt alert & oriented x 4 and able to make needs known. NG in place connected to LIS. Ostomy and Peck catheter in place with staff emptying output frequently. Pr Specialist called [facility] to provide update of pt?s ostomy, NG and Peck output and requested order for bolus. New orders received: 500 mL LR bolus then increase maintenance LR to 125 mLs/hr. Abdominal pain controlled with ice, rest and PRN IV Dilaudid. Pt rated pain 4/10 at highest level. Pt slept intermittently throughout the shift. VSS and pt has been afebrile. IV to L AC patent. Bowel sounds noted to be hypoactive in all four quadrants. Dressing to abdomen noted to be C/D/I upon inspection. SCDs worn to BLEs overnight.
[2024-02-07 09:03] LABS: Basophils Percent Auto 0.1 % (0.0-3.0); Eosinophils Percent Auto 0.3 % (0.0-7.0); Hematocrit 40.3 % (37.0-53.0); Hemoglobin* 12.8 gm/dL (13.5-17.5); Immature Granulocytes Pct Auto 0.2 %; Lymphocytes Percent Auto 6.3 % (20-44); Mean Corpuscular HGB Conc 32 gm/dL (32-36); Mean Corpuscular Hemoglobin 29 pg (26-34); Mean Corpuscular Volume 90 fL (80-100); Monocytes Percent Auto 7.2 % (0.0-11.0); Neutrophils Percent Auto 85.9 % (42.0-72.0); Platelet Count* 265 K/uL (140-440); RDW Coefficient of Variation % 14.3 % (11.5-15.5); Red Blood Count 4.49 m/uL (4.30-5.90); White Blood Count* 17.59 K/uL (4.50-11.00)
[2024-02-07 09:07] LABS: Slide Review Reflex No
[2024-02-07 09:16] LABS: Albumin* 3.3 g/dL (3.3-5.0); Chloride* 105 mmol/L (96-114)
[2024-02-07] MEDS: ERTAPENEM 1 GM in 0.9 % SODIUM CHLORIDE Mini-bag 100 ML IVPB (09:16)
[2024-02-07 09:17] LABS: Potassium* 3.7 mmol/L (3.6-5.1); Sodium* 138 mmol/L (135-149)
[2024-02-07 09:19] LABS: Est. Creatinine Clearance* 71.12; Estimated Glomerular Filt Rate 80 ml/min
[2024-02-07 09:20] LABS: Alanine Aminotransferase* 21 U/L (4-50); Alkaline Phosphatase* 60 U/L (40-150); Aspartate Amino Transferase* 34 U/L (12-35); Blood Urea Nitrogen* 22 mg/dL (7-30); Calcium* 8.3 mg/dL (8.4-10.6); Carbon Dioxide* 26 mmol/L (20-32); Glucose* 106 mg/dL (60-115)
[2024-02-07 09:21] LABS: Anion Gap 7 mEq/L (7-15)
[2024-02-07 09:58] LABS: C Reactive Protein* 32.7 mg/dL (0.5-1.0)
--- NOTE | 2024-02-07 10:03 | P.GSPN_ITS ---
Subjective Subjective Date Seen: 02/07/24 Interval history: Patient is doing well postoperatively. He had multiple stools through his colostomy and passing gas. His abdominal pain is well controlled. His urine output is okay, he received 500 mL bolus overnight. He denies any nausea vo miting. He has been ambulating a lot. Exam Narrative: Exam Narrative: Abdomen: Protuberant, mildly tender to palpation in the left lower quadrant, midline laparotomy incision is with intact sirena. The ileostomy is pink and was recently changed so no stool was seen in the bag. Const: Vital Signs, click to edit/add: Vital Signs - 24 hr 02/06/24 11:00 02/06/24 15:00 02/06/24 15:00 Temperature 97.6 F Pulse Rate [Pulse Oximeter] 95 88 Respiratory Rate 16 16 16 Blood Pressure [Le ft Arm] 108/59 L Blood Pressure [Ri ght Arm] Pulse Oximetry 95 95 Oxygen Delivery Mn thod Room Air Room Air 02/06/24 15:00 02/06/24 19:00 02/06/24 23:00 Temperature 99.0 F 98.5 F Pulse Rate [Pulse Oximeter] 88 91 86 Respiratory Rate 16 18 18 Blood Pressure [Le ft Arm] 97/64 108/65 Blood Pressure [Ri ght Arm] Pulse Oximetry 95 93 Oxygen Delivery Mn thod Room Air Room Air 02/06/24 23:00 02/06/24 23:00 02/07/24 03:00 Temperature 97.8 F 97.4 F L Pulse Rate [Pulse Oximeter] 86 85 Respiratory Rate 16 16 16 Blood Pressure [Le ft Arm] 116/65 125/71 Blood Pressure [Ri ght Arm] Pulse Oximetry 91 91 91 Oxygen Delivery Mn thod Room Air Room Air Room Air 02/07/24 07:00 02/07/24 07:00 02/07/24 08:47 Temperature 98.2 F Pulse Rate [Pulse Oximeter] 88 92 Respiratory Rate 20 20 20 Blood Pressure [Le ft Arm] Blood Pressure [Ri ght Arm] 147/84 H Pulse Oximetry 95 93 Oxygen Delivery Mn thod Room Air Room Air 02/07/24 08:56 Temperature Pulse Rate [Pulse Oximeter] Respiratory Rate 20 Blood Pressure [Le ft Arm] Blood Pressure [Ri ght Arm] Pulse Oximetry 94 Oxygen Delivery Mn thod Room Air Progress Note:A&P Assessment and plan (1) Colonic obstruction: Status: Acute Assessment and Plan: 73-year-old male s/p exploratory laparotomy, descending colectomy, and end colostomy POD 2. Patient is having gas through his colostomy and continues to have stools. We can remove his NG tube and give him sips of clears. Patient may still develop postoperative ileus and I would not advance his diet to fast. Will remove patient's Peck catheter and continue monitoring his urine output. We can start Lovenox for DVT prophylaxis. His WBC decreased to 17 from 20/2 yesterday. We will continue with IV antibiotics for now.
[2024-02-07] MEDS: PANTOPRAZOLE SODIUM 40 MG INJ IVP (12:32)
--- NOTE | 2024-02-07 15:11 | P.IMPN_ITS ---
Progress Note: A&P Assessment and plan (1) Colonic obstruction: Problem details: -ex lap 02/05; Dr. Bolton. 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 NG tube is out. Diet has advanced to sips of clear liquids. Patient is still fairly distended. At high risk for both ileus and third-spacing of fluid. Continue on antibiotics, IV fluids, monitoring of urine output. Status: Acute (2) Diverticulitis of intestine with perforation and abscess: Problem details: -admitted to from 01/27 - 01/30. -discharged on IV ertapenem (plan was for 14 days). Now has developed colonic obstruction in the area of the diverticulitis with perforation status post colonic resection and colostomy Continue IV antibiotics and follow clinically. Status: Acute (3) DAI (acute kidney injury): Problem details: -pre-renal from obstruction and poor intake -fluid bolus today; ongoing IVF -monitor Status: Acute (4) Colostomy in place: Problem details: Stool output may indicate antegrade function but also may indicate residual stool from preoperative status and obstruction Status: Acute (5) Hypertension: Problem details: continue lisinopril and norvasc when taking PO and bp stable Status: Acute (6) Hyperlipidemia: Problem details: continue statin when taking PO Status: Acute Plan Patient admitted for postoperative management of colonic obstruction and diverticulitis. Continue to medically manage along with surgery. Total time spent today is 45 minutes in evaluation and management Subjective Date Seen: 02/07/24 Interval history: 73-year-old male with history of prostate cancer admitted to the hospital on January 28 2024 with a 1 week history of left flank pain. Was subsequently diagnosed with perforated diverticulitis. This was medically managed with ertapenem and he was discharged on January 30 and continued on outpatient ertapenem. On February 04 he return to the hospital reporting vomiting and worsening pain. Repeat evaluation showed colonic obstruction. He was taken to the OR by Dr. Bolton where his colonic obstruction was managed with a descending colectomy, and proximal descending colostomy with sigmoid mucous fistula. He also had removal of umbilical mesh from a prior umbilical hernia repair. In the hospital he was on NG suctioning which was removed due to improving symptoms. Peck catheter has been removed. He is treated with ertapenem. Reports generally feeling better. He is putting out moderate stool and gas in his colostomy Exam Narrative: Exam Narrative: He is alert and oriented to his circumstances. He appears in no distress. Respirations are clear to auscultation. Cardiovascular: S1, S2, regular rate and rhythm. Abdomen: Bowel sounds are present with primarily high-pitched tinkling sounds. Abdomen is distended and mildly tender except in the left flank where he had the perforation where he is moderately tender. The colostomy bag has moderate stool and gas. Const: Vital Signs, click to edit/add: Vital Signs - 24 hr 02/06/24 19:00 02/06/24 23:00 02/06/24 23:00 Temperature 98.5 F Pulse Rate [Pulse Oximeter] 91 86 Respiratory Rate 18 18 16 Blood Pressure [Le ft Arm] 108/65 Blood Pressure [Ri ght Arm] Pulse Oximetry 93 91 Oxygen Delivery Me thod Room Air Room Air 02/06/24 23:00 02/07/24 03:00 02/07/24 07:00 Temperature 97.8 F 97.4 F L Pulse Rate [Pulse Oximeter] 86 85 88 Respiratory Rate 16 16 20 Blood Pressure [Le ft Arm] 116/65 125/71 Blood Pressure [Ri ght Arm] Pulse Oximetry 91 91 Oxygen Delivery Me thod Room Air Room Air 02/07/24 07:00 02/07/24 08:47 02/07/24 08:56 Temperature 98.2 F Pulse Rate [Pulse Oximeter] 92 Respiratory Rate 20 20 20 Blood Pressure [Le ft Arm] Blood Pressure [Ri ght Arm] 147/84 H Pulse Oximetry 95 93 94 Oxygen Delivery Me thod Room Air Room Air Room Air 02/07/24 11:00 Temperature 97.8 F Pulse Rate [Pulse Oximeter] 99 Respiratory Rate 20 Blood Pressure [Le ft Arm] 130/79 Blood Pressure [Ri ght Arm] Pulse Oximetry 93 Oxygen Delivery Me thod Room Air Labs Labs: Laboratory Results - last 24 hr 02/07/24 08:50 WBC 17.59 H RBC 4.49 Hgb 12.8 L Hct 40.3 MCV 90 MCH 29 MCHC 32 RDW Coeff of Aida 14.3 Plt Count 265 Neut % (Auto) 85.9 H Lymph % (Auto) 6.3 L [place] % (Auto) 7.2 Eos % (Auto) 0.3 Baso % (Auto) 0.1 Neut # (Auto) 15.10 H Lymph # (Auto) 1.10 [place] # (Auto) 1.30 H Eos # (Auto) 0.10 Baso # (Auto) 0.00 Abs Immat Gran (auto) 0.00 Imm/Tot Granulo (auto) 0.2 Sodium 138 Potassium 3.7 Chloride 105 Carbon Dioxide 26 Anion Gap 7 BUN 22 Creatinine 1.0 Estimated Creat Clear 71.12 Estimated GFR 80 Glucose 106 Calcium 8.3 L Total Bilirubin 1.0 AST 34 ALT 21 Alkaline Phosphatase 60 C-Reactive Protein 32.7 H Total Protein 6.0 Albumin 3.3
--- NOTE | 2024-02-07 18:32 | PC.NURSE ---
shift note: ostomy appliance changed. drsg dc'd with sirena midline abd intact with no redness to surrounding skin. Abd distended and firm on palpation this a.m with absent BS x4. Rechecked BS this afternoon with hypoactive tones x4 and abd distended but less firm on palpation. IV dc'd to posterior lt FA intact due to infiltration. pt amb in max. NG dc'd intact this a.m. mckenzie dc'd intact. Pt voided since mckenzie dc'd 275cc eliud urine. pt advanced to sips of clears. Pt had 250cc intake.,
[2024-02-08] MEDS: LACTATED RINGERS 1000 ML 1,000 ML 125 ML IV ×3 (01:10→18:08)
[2024-02-08 03:00] VITALS: BP 128/76; PULSE 76; RESP 20; TEMP 36.7; O2SAT 93
--- NOTE | 2024-02-08 06:16 | PC.NURSE ---
End of shift [id number]: Pleasant and cooperative with cares. ?Pain to midline abdomen managed well with ice, positioning and PRN dilaudid. ?Bowel sounds hypoactive in all 4 quadrants, abdomen firm and round. ?Incision to midline open to air, no drainage and no signs or symptoms of infection. ?Stoma beefy pink in appearance, ostomy with moderate amount of liquid stool and small amount of air in bag. ?Up x 1 prior to bed and ambulated in hallway. ?Up ad eulogio in room. ?Tolerating small sips throughout the shift, denies any nausea or vomiting. ?Urine output of 350 this shift of clear, dark eliud urine. ?+1 pitting edema to BLE. ?
[2024-02-08 07:00] VITALS: BP 137/78; PULSE 81; RESP 18; TEMP 36.6; O2SAT 95
[2024-02-08 07:10] LABS: Basophils Percent Auto 0.2 % (0.0-3.0); Eosinophils Percent Auto 1.6 % (0.0-7.0); Hematocrit 33.2 % (37.0-53.0); Hemoglobin* 10.6 gm/dL (13.5-17.5); Immature Granulocytes Pct Auto 0.3 %; Lymphocytes Percent Auto 6.4 % (20-44); Mean Corpuscular HGB Conc 32 gm/dL (32-36); Mean Corpuscular Hemoglobin 29 pg (26-34); Mean Corpuscular Volume 90 fL (80-100); Monocytes Percent Auto 7.1 % (0.0-11.0); Neutrophils Percent Auto 84.4 % (42.0-72.0); Platelet Count* 215 K/uL (140-440); RDW Coefficient of Variation % 14.1 % (11.5-15.5); Red Blood Count 3.71 m/uL (4.30-5.90); White Blood Count* 12.22 K/uL (4.50-11.00)
[2024-02-08 07:13] LABS: Slide Review Reflex No
[2024-02-08 07:22] LABS: Chloride* 106 mmol/L (96-114)
[2024-02-08 07:23] LABS: Potassium* 3.2 mmol/L (3.6-5.1); Sodium* 137 mmol/L (135-149)
[2024-02-08 07:25] LABS: Creatinine* 0.8 mg/dL (0.5-1.5); Est. Creatinine Clearance* 71.12; Estimated Glomerular Filt Rate 94 ml/min
[2024-02-08 07:26] LABS: Anion Gap 4 mEq/L (7-15); Blood Urea Nitrogen* 16 mg/dL (7-30); Calcium* 8.1 mg/dL (8.4-10.6); Carbon Dioxide* 27 mmol/L (20-32); Glucose* 92 mg/dL (60-115)
[2024-02-08] MEDS: HYDROmorphone 0.5 mg/0.5 ml inj IVP (08:00)
--- NOTE | 2024-02-08 08:09 | PM.GSPN ---
Subjective Subjective Date Seen: 02/08/24 Interval history: Patient is doing well postoperatively. He continues to have multiple liquid stools through his colostomy. His urine output continues to be okay but not great. He tolerated clears yesterday. He denied any nausea or vomiting. Patient continues to walk a lot. Exam Narrative: Exam Narrative: Abdomen is soft, not distended, tender to palpation in the left abdomen but not on the right. Midline laparotomy incision with intact sirena. The left upper quadrant stoma is pink and perfused with liquid stool in the bag. Const: Vital Signs, click to edit/add: Vital Signs - 24 hr 02/07/24 08:47 02/07/24 08:56 02/07/24 11:00 Temperature 98.2 F 97.8 F Pulse Rate [Pulse Oximeter] 92 99 Respiratory Rate 20 20 20 Blood Pressure [Le ft Arm] 130/79 Blood Pressure [Ri ght Arm] 147/84 H Pulse Oximetry 93 94 93 Oxygen Delivery Me thod Room Air Room Air Room Air 02/07/24 15:00 02/07/24 15:00 02/07/24 19:00 Temperature 98.6 F 98.3 F Pulse Rate [Pulse Oximeter] 100 88 Respiratory Rate 20 16 Blood Pressure [Le ft Arm] 127/74 Blood Pressure [Ri ght Arm] 105/76 Pulse Oximetry 95 95 94 Oxygen Delivery Me thod Room Air Room Air Room Air 02/07/24 23:00 02/07/24 23:00 02/07/24 23:00 Temperature 98.5 F Pulse Rate [Pulse Oximeter] 91 88 Respiratory Rate 18 16 Blood Pressure [Le ft Arm] 136/78 Blood Pressure [Ri ght Arm] Pulse Oximetry 94 94 Oxygen Delivery Me thod Room Air Room Air 02/08/24 03:00 Temperature 98.1 F Pulse Rate [Pulse Oximeter] 76 Respiratory Rate 20 Blood Pressure [Le ft Arm] 128/76 Blood Pressure [Ri ght Arm] Pulse Oximetry 93 Oxygen Delivery Me thod Room Air Progress Note:A&P Assessment and plan (1) S/P colectomy: Status: Acute Assessment and Plan: 73-year-old male s/p exploratory laparotomy, descending colectomy with end colostomy POD 3. Patient can advance diet to full liquid diet and continue to drink liquids to stay hydrated improve his urine output. We will have stoma education started today. Patient will see an ostomy nurse next week for more education. Possibly discharge home tomorrow.
[2024-02-08 09:02] LABS: C Reactive Protein* 29.2 mg/dL (0.5-1.0)
[2024-02-08] MEDS: ERTAPENEM 1 GM in 0.9 % SODIUM CHLORIDE Mini-bag 100 ML IVPB (09:27)
[2024-02-08] MEDS: ENOXAPARIN 40 MG/0.4 ML INJ SUBCUT (09:27)
[2024-02-08 11:00] VITALS: BP 129/88; PULSE 88; RESP 18; TEMP 36.9; O2SAT 98
--- NOTE | 2024-02-08 11:48 | PM.IMPN1 ---
Progress Note: A&P Assessment and plan (1) S/P colectomy: Problem details: descending colectomy with end ileostomy and sigmoid mucous fistula Status: Acute (2) Colonic obstruction: Problem details: -ex lap 02/05; Dr. Bolton. 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 NG tube is out. Diet has advanced to sips of clear liquids. Patient is still fairly distended. At high risk for both ileus and third-spacing of fluid. Continue on antibiotics, IV fluids, monitoring of urine output. Status: Acute (3) DAI (acute kidney injury): Problem details: Likely pre renal azotemia. Improving Status: Acute (4) Hypertension: Problem details: Resume amlodipine today. Start lisinopril if renal in function continues to improve Status: Acute (5) Hyperlipidemia: Problem details: Resume rosuvastatin Status: Acute Plan Continue in hospital for postoperative management of colonic obstruction, colostomy, IV antibiotics, IV fluids, pain management and advancing diet. Time Spent With Patient Total time spent: Total time spent today is 40 minutes in evaluation and management and coordination of care Subjective Date Seen: 02/08/24 Interval history: 73-year-old male with history of prostate cancer admitted to the hospital on January 28 2024 with a 1 week history of left flank pain. Was subsequently diagnosed with perforated diverticulitis. This was medically managed with ertapenem and he was discharged on January 30 and continued on outpatient ertapenem. On February 04 he return to the hospital reporting vomiting and worsening pain. Repeat evaluation showed colonic obstruction. He was taken to the OR by Dr. Bolton where his colonic obstruction was managed with a descending colectomy, and proximal descending colostomy with sigmoid mucous fistula. He also had removal of umbilical mesh from a prior umbilical hernia repair. In the hospital he was on NG suctioning which was removed due to improving symptoms. Peck catheter has been removed. He is treated with ertapenem. Reports generally feeling better. He is putting out moderate stool and gas in his colostomy February 07: Patient reports continued to improve with pain. He has gradually advancing his diet. No fever. No dyspnea. Ambulating in the halls. Moderate amount of liquid stool in his colostomy. Exam Narrative: Exam Narrative: He is alert and appears in no distress. Mood and affect are bright. Respirations are clear to auscultation. Cardiovascular: S1, S2, regular rate and rhythm. No murmur gallop or rub. Abdomen: Bowel sounds are present. Abdomen is mildly distended and soft. Less distended and tender than yesterday. Incision is clean and dry. Moderate amount of liquid brown stool in the colostomy. Extremities without edema. Const: Vital Signs, click to edit/add: Vital Signs - 24 hr 02/07/24 15:00 02/07/24 15:00 02/07/24 19:00 Temperature 98.6 F 98.3 F Pulse Rate [Pulse Oximeter] 100 88 Respiratory Rate 20 16 Blood Pressure [Le ft Arm] 127/74 Blood Pressure [Ri ght Arm] 105/76 Pulse Oximetry 95 95 94 Oxygen Delivery Me thod Room Air Room Air Room Air 02/07/24 23:00 02/07/24 23:00 02/07/24 23:00 Temperature 98.5 F Pulse Rate [Pulse Oximeter] 91 88 Respiratory Rate 18 16 Blood Pressure [Le ft Arm] 136/78 Blood Pressure [Ri ght Arm] Pulse Oximetry 94 94 Oxygen Delivery Me thod Room Air Room Air 02/08/24 03:00 02/08/24 07:00 02/08/24 07:00 Temperature 98.1 F 98 F Pulse Rate [Pulse Oximeter] 76 81 Respiratory Rate 20 18 18 Blood Pressure [Le ft Arm] 128/76 137/78 Blood Pressure [Ri ght Arm] Pulse Oximetry 93 95 95 Oxygen Delivery Me thod Room Air Room Air Room Air Documenting provider has reviewed patient's vital signs: yes Labs Labs: Laboratory Results - last 24 hr 02/08/24 07:02 WBC 12.22 H RBC 3.71 L Hgb 10.6 L Hct 33.2 L MCV 90 MCH 29 MCHC 32 RDW Coeff of Aida 14.1 Plt Count 215 Neut % (Auto) 84.4 H Lymph % (Auto) 6.4 L [place] % (Auto) 7.1 Eos % (Auto) 1.6 Baso % (Auto) 0.2 Neut # (Auto) 10.30 H Lymph # (Auto) 0.80 L [place] # (Auto) 0.90 Eos # (Auto) 0.20 Baso # (Auto) 0.00 Abs Immat Gran (auto) 0.00 Imm/Tot Granulo (auto) 0.3 Sodium 137 Potassium 3.2 L Chloride 106 Carbon Dioxide 27 Anion Gap 4 L BUN 16 Creatinine 0.8 Estimated Creat Clear 71.12 Estimated GFR 94 Glucose 92 Calcium 8.1 L C-Reactive Protein 29.2 H
[2024-02-08] MEDS: POTASSIUM BICARB 25 MEQ EFFERVESCENT TAB 50 MEQ PO (12:01)
[2024-02-08] MEDS: ROSUVASTATIN CALCIUM 10 MG TABLET PO (12:01)
[2024-02-08] MEDS: HYDROCODONE-ACETAMIN 5-325 MG 1 TAB PO ×2 (13:38→19:39)
[2024-02-08] MEDS: PANTOPRAZOLE SODIUM 40 MG INJ IVP (13:39)
[2024-02-08 15:00] VITALS: PULSE 88; RESP 18; O2SAT 98
--- NOTE | 2024-02-08 17:50 | PC.NURSE ---
shift note; pt up amb halls indept. BS active x4. pt passing moderate amount of flatus in ostomy. stool brown liquid. stoma beefy red and moist. ostomy appliance intact with no redness to surrounding skin. sirena midline abd c/d/i. urine dk eliud. lt arm swollen. Lt wrist IV infiltrated and removed intact. pt tolerating full liquids. QR code list of ostomy education given to pt. Ostomy company contacted via computer. Triny in wound care clinic messaged for initial ostomy teaching/care.
[2024-02-08 19:00] VITALS: BP 134/80; PULSE 77; RESP 18; TEMP 36.3; O2SAT 96
[2024-02-08 23:00] VITALS: BP 134/80; PULSE 77; RESP 16; RESP 18; TEMP 36.3; O2SAT 96
[2024-02-09 03:00] VITALS: BP 137/89; PULSE 67; RESP 16; TEMP 36.3; O2SAT 95
[2024-02-09] MEDS: HYDROCODONE-ACETAMIN 5-325 MG 1 TAB PO ×2 (04:00→11:28)
--- NOTE | 2024-02-09 06:10 | PC.NURSE ---
End of shift [id number]: Pleasant and cooperative with cares. Pain to abdomen well managed with ice and prn norco. Midline incision open to air and free of any signs or symptoms of infection. Stoma to left upper quadrant beefy red in appearance, patient having liquid stool output and passing gas through stoma. Bowel sounds active x 4 quadrants. Tolerating full liquid diet, denies any nausea or vomiting. Ambulates independently in hallway. IV to right AC that was placed earlier under ultrasound infiltrated, notified charge nurse, and clubhouse manager. IV fluid discontinued and clubhouse manager contacted [employer] who will place IV prior to morning dose of IV antibiotics. Left upper extremity edematous from previous IV infiltration, gentle compression applied. Ambulates independently in hallway and room.
[2024-02-09 06:19] LABS: Basophils Absolute Auto 0.02 K/uL (0.00-0.30); Basophils Percent Auto 0.2 % (0.0-3.0); Eosinophils Absolute Auto 0.32 K/uL (0.00-0.50); Eosinophils Percent Auto 3.7 % (0.0-7.0); Hematocrit 31.6 % (37.0-53.0); Hemoglobin* 10.1 gm/dL (13.5-17.5); Immature Granulocytes Abs Auto 0.08 K/uL (0.00-0.30); Immature Granulocytes Pct Auto 0.9 %; Lymphocytes Percent Auto 9.3 % (20-44); Mean Corpuscular HGB Conc 32 gm/dL (32-36); Mean Corpuscular Hemoglobin 29 pg (26-34); Mean Corpuscular Volume 89 fL (80-100); Monocytes Percent Auto 8.7 % (0.0-11.0); Neutrophils Percent Auto 77.2 % (42.0-72.0); Platelet Count* 245 K/uL (140-440); RDW Coefficient of Variation % 14.3 % (11.5-15.5); Red Blood Count 3.55 m/uL (4.30-5.90); White Blood Count* 8.72 K/uL (4.50-11.00)
[2024-02-09 06:23] LABS: Slide Review Reflex No
[2024-02-09 06:33] LABS: Chloride* 105 mmol/L (96-114); Sodium* 137 mmol/L (135-149)
[2024-02-09 06:36] LABS: Anion Gap 3 mEq/L (7-15); Blood Urea Nitrogen* 12 mg/dL (7-30); Carbon Dioxide* 29 mmol/L (20-32); Creatinine* 0.8 mg/dL (0.5-1.5); Est. Creatinine Clearance* 71.12; Estimated Glomerular Filt Rate 94 ml/min
[2024-02-09 06:37] LABS: Calcium* 7.9 mg/dL (8.4-10.6); Glucose* 89 mg/dL (60-115)
[2024-02-09 06:54] LABS: C Reactive Protein* 17.9 mg/dL (0.5-1.0)
[2024-02-09 07:30] VITALS: BP 143/90; PULSE 74; RESP 16; TEMP 37.2; O2SAT 97
--- NOTE | 2024-02-09 07:57 | PM.GSPN ---
Subjective Subjective Date Seen: 02/09/24 Interval history: Patient is doing well. He tolerated clears yesterday, he had multiple liquid stools from his colostomy. His abdomen is not bothersome. He denies any nausea or vomiting. He walked multiple times. Exam Narrative: Exam Narrative: Abdomen is soft, not distended, colostomy is pink with small amount of stool in the ostomy bag. Midline laparotomy incision with intact sirena. Const: Vital Signs, click to edit/add: Vital Signs - 24 hr 02/08/24 11:00 02/08/24 15:00 02/08/24 15:00 Temperature 98.4 F Pulse Rate [Pulse Oximeter] 88 88 Respiratory Rate 18 18 18 Blood Pressure [Le ft Arm] 129/88 Pulse Oximetry 98 98 Oxygen Delivery Me thod Room Air Room Air Oxygen Flow Rate 02/08/24 15:00 02/08/24 19:00 02/08/24 23:00 Temperature 97.4 F L Pulse Rate [Pulse Oximeter] 77 Respiratory Rate 18 18 16 Blood Pressure [Le ft Arm] 134/80 Pulse Oximetry 98 96 Oxygen Delivery Me thod Room Air Room Air Oxygen Flow Rate 02/08/24 23:00 02/08/24 23:00 02/09/24 03:00 Temperature 97.4 F L 97.4 F L Pulse Rate [Pulse Oximeter] 77 67 Respiratory Rate 16 18 16 Blood Pressure [Le ft Arm] 134/80 137/89 Pulse Oximetry 96 96 95 Oxygen Delivery Me thod Room Air Room Air Room Air Oxygen Flow Rate 6 Progress Note:A&P Assessment and plan (1) S/P colectomy: Status: Acute Assessment and Plan: 73-year-old male s/p exploratory laparotomy, descending colectomy, and transverse colostomy and sigmoid mucous fistula for colonic obstruction POD 4. Will advance patient to regular diet. Patient needs ostomy care education and stoma nurse visit today. Possible discharge home later today if he is comfortable with stoma cares and has a short-term follow-up with ostomy nurse.
[2024-02-09] MEDS: ENOXAPARIN 40 MG/0.4 ML INJ SUBCUT (09:06)
[2024-02-09] MEDS: AMLODIPINE 5 MG TABLET PO (09:06)
[2024-02-09] MEDS: POTASSIUM BICARB 25 MEQ EFFERVESCENT TAB 50 MEQ PO ×2 (09:06→11:27)
--- NOTE | 2024-02-09 09:43 | NUTR.NU ---
JUDITHN with diet education related to new colostomy. Patient is pod #4 from exploratory laparotomy, descending colectomy, and transverse colostomy and sigmoid mucous fistula for colonic obstruction. Current height 5ft 11in; weight 249lb 9.6oz; BMI 34.8 kg/m2. Diet is regular, advanced from liquids yesterday. RDN visited with patient whom was eating breakfast. His , khloe, was visiting and both agreed to receive diet education for new colostomy. Patient was provided diet education related to new colostomy.? Education provided on following a low fiber diet for the next ~4 weeks or per MD recommendation.? Education included recommendations on following a low-fiber diet of less than 13 grams of fiber per day and included foods that are recommended and not recommended.? Discussed foods that may cause blockages, gas/odors, and diarrhea. Also encouraged fluid intake of at least 8-10 cups daily and oral rehydration drinks as needed. Verbal and written information as well as sample menus provided from [facility] on nutrition therapy for colostomy.? Patient and verbalized understanding and had no questions or concerns.? RDN's contact information was provided and patient was encouraged to contact RDN with questions.
[2024-02-09 11:00] VITALS: BP 142/87; PULSE 83; RESP 18; TEMP 37.1; O2SAT 95
--- NOTE | 2024-02-09 11:23 | PC.SOCIAL ---
Discharge planning: powder worker tnt met with pt and his this morning. Pt and his feel good about going home at discharge, although pt's is a little concerned with the ostomy bag care, but feels she will get more confident with taking care of it as she does it more frequently. Pt and his asked about home care and this worker explained that pt would most likely not qualify due to not meeting homebound status, but that that was the doctor's decision. Pt's stated that she can take the pt to all of his outpatient appointments after he discharges from the hospital. powder worker tnt did explain that pt and his could hire a nurse through private home health travel ot care if they are interested. Pt and his are not interested in private home health travel ot care at this time and feel that they will be able to handle pt's post operative care together as a team. Social work to follow-up as needed.
[2024-02-09] MEDS: ACETAMINOPHEN 325 MG TABLET 650 MG PO (11:34)
--- NOTE | 2024-02-09 13:08 | PM.WSCN ---
Date of Consult Consult date: 02/09/24 Requesting Physician: General Surgery Primary Care Provider: Raymond Hurst MD Consult Narrative Reason for consult: new colostomy patient Narrative: Juan Ozuna is a 73 year old male s/p exploratory laparotomy, descending colectomy, and transverse colostomy and sigmoid mucous fistula for colonic obstruction POD 4. d/t perforated diverticulitis. Pathology pending.Doing well, plan for discharge later today. at bedside, she will help with his ostomy cares until patient is ready to complete his pouch changes independently. They have watched ostomy education videos. Per insurance carrier, [employer] preferred DME. Patient has loose brown stool in ostomy appliance. Being seen today by Wound Services for ongoing ostomy education. Review of Systems Status of ROS: Reports: 6 or more systems reviewed and unremarkable except as noted in History and below PFSH PFS Medical History (Updated 02/17/24 @ 00:00 by Background Daemon) Colostomy in place ?Z93.3 - Colostomy status (ICD-10) Diverticulitis of intestine with perforation and abscess ?K57.80 - Diverticulitis of intestine, part unspecified, with perforation and abscess without bleeding (ICD-10) Prostate cancer ?C61 - Malignant neoplasm of prostate (ICD-10) Hyperlipidemia ?E78.5 - Hyperlipidemia, unspecified (ICD-10) Hypertension ?I10 - Essential (primary) hypertension (ICD-10) Surgical History (Updated 02/17/24 @ 00:00 by Background Daemon) S/P colectomy ?Z90.49 - Acquired absence of other specified parts of digestive tract (ICD-10) History of right inguinal hernia repair ?Z98.890 - Other specified postprocedural states (ICD-10) ?Z87.19 - Personal history of other diseases of the digestive system (ICD-10) History of umbilical hernia repair ?Z98.890 - Other specified postprocedural states (ICD-10) ?Z87.19 - Personal history of other diseases of the digestive system (ICD-10) History of robot-assisted laparoscopic radical prostatectomy ?Z90.79 - Acquired absence of other genital organ(s) (ICD-10) Family History (System 02/05/24 @ 13:55 by Rosaura Acosta) Mother Breast cancer Sister Breast cancer Father Prostate cancer Heart disease Social History Narrative: He is and lives with his , Cathy, who is healthcare power of safety and skill based pay manager. Code status is full. He does not smoke. Does not drink alcohol. What is your current living situation?: I presently have a place to live Problems where you live: no known problems Problems where you live details: NONE In the past 12 months, utilities in danger of being shut off: no In past 12 months, lack of transportation kept you from medical appts, meetings, work, or getting things needed for daily living: no In the past 12 mos, have been you worried that your food would run out before you had money to buy more?: never true In the past 12 mos, the food you bought just didn't last and you didn't have money to buy more?: never true Highest level of school completed/degree received: Bachelor's degree Smoking Status: Never smoker Do you use any of these nicotine containing products: None Second hand tobacco smoke exposure: No How often do you have a drink containing alcohol: never AUDIT-C Alcohol total score: 0 Non-prescribed substance use: denies use Caffeine: Yes How often does anyone, including family, friends and others, physically hurt you: never How often does anyone, including family, friends and others, insult or talk down to you: never How often does anyone, including family, friends and others, threaten you with harm: never How often does anyone, including family, friends and others, scream or curse at you: never service: No Meds Home Medications and Allergies Home Medications ?Medication ?Instructions ?Recorded ?Confirmed ?Type amlodipine 5 mg tablet 5 mg PO DAILY 01/28/24 02/13/24 History lisinopril 20 mg tablet 20 mg PO DAILY 01/28/24 02/13/24 History rosuvastatin 10 mg tablet 10 mg PO Q48H 01/28/24 02/13/24 History Allergies Allergy/AdvReac Type Severity Reaction Status Date / Time No Known Drug Allergies Allergy Verified 02/13/24 13:42 Exam Narrative: Exam Narrative: General: NAD, alert ABD: Midline surgical wound sirena intact, remaining part of physical exam within normal limits for postop status. See ostomy assessment below Pulmonary: unlabored, speaking in full sentences Psych: Normal affect, makes good eye contact Const: Vital Signs, click to edit/add: Vital Signs - 24 hr 02/08/24 15:00 02/08/24 15:00 02/08/24 15:00 Temperature Pulse Rate [Pulse Oximeter] 88 Respiratory Rate 18 18 18 Blood Pressure [Le ft Arm] Pulse Oximetry 98 98 Oxygen Delivery Me thod Room Air Room Air Oxygen Flow Rate 02/08/24 19:00 02/08/24 23:00 02/08/24 23:00 Temperature 97.4 F L Pulse Rate [Pulse Oximeter] 77 Respiratory Rate 18 16 16 Blood Pressure [Le ft Arm] 134/80 Pulse Oximetry 96 96 Oxygen Delivery Me thod Room Air Room Air Oxygen Flow Rate 02/08/24 23:00 02/09/24 03:00 02/09/24 07:30 Temperature 97.4 F L 97.4 F L Pulse Rate [Pulse Oximeter] 77 67 74 Respiratory Rate 18 16 16 Blood Pressure [Le ft Arm] 134/80 137/89 Pulse Oximetry 96 95 Oxygen Delivery Me thod Room Air Room Air Oxygen Flow Rate 6 02/09/24 07:30 02/09/24 07:30 02/09/24 11:00 Temperature 98.9 F 98.7 F Pulse Rate [Pulse Oximeter] 74 83 Respiratory Rate 16 16 18 Blood Pressure [Le ft Arm] 143/90 H 142/87 H Pulse Oximetry 97 97 95 Oxygen Delivery Me thod Room Air Room Air Oxygen Flow Rate Documenting provider has reviewed patient's vital signs: yes Labs Labs: Short CBC 02/09/24 Range/Units 06:12 WBC 8.72 (4.50-11.00) K/uL Hgb 10.1 L (13.5-17.5) gm/dL Hct 31.6 L (37.0-53.0) % Plt Count 245 (140-440) K/uL BMP 02/09/24 06:12 Sodium 137 Potassium 3.0 L Chloride 105 Carbon Dioxide 29 BUN 12 Creatinine 0.8 Glucose 89 Calcium 7.9 L Assessment and Plan Assessment and plan (1) Colostomy in place: Problem comment: Stool output may indicate antegrade function but also may indicate residual stool from preoperative status and obstruction Status: Acute Plan patient to be seen s/p hospital d/c in Ostomy Clinic on 02/13/24 @ 1300. Patient advised to enter via family medicine clinic entrance. initial ostomy order placed through [facility]. Patient sent with for back changes. expressed feeling overwhelmed and was tearful during education- supportive listening provided. Ostomy appliance change completed without difficulty, ongoing education provided throughout. Total Time Spent Total Time Spent: 60 Ostomy Ostomy Treating Provider: Silvia White Stoma Status Stoma Number: 1 Stoma Location: Q Stoma Type: colostomy Stoma Details Existing Ostomy: No Reason for Referral: complicated Ostomy Functioning Ostomy Functioning: Yes Type of Drainage: Stool Appearance of Stoma: Edematous and Moist Color of Stoma: Beefy red Shape of Stoma: Oval Height of Stoma: Protruding Location of Lumen: Level with skin Peristomal Skin Assessment: Within Normal Limits Pain Patient has pain: Yes With pouch change?: No Constant/intermittent pain?: Intermittent Seal Maintained: No (minor silent leak, did not go outside barrier) Appliance Appliance emptied this visit?: Yes Appliance Changed this visit: Yes Adjustment to ostomy: Patient experiencing difficulty adapting to ostomy
[2024-02-09 15:00] VITALS: BP 132/77; PULSE 85; RESP 18; TEMP 37.1; O2SAT 94
[2024-02-09 15:02] LABS: Potassium* 3.5 mmol/L (3.6-5.1)
--- NOTE | 2024-02-09 15:26 | PM.DS1 ---
DS: Providers Provider Date Seen: 02/09/24 Date of admission: 02/05/24 19:48 Primary care physician: Raymond Hurst MD Admitting Clinician: Solomon Contreras MD Attending Physician on discharge: Mercedes Bolton MD Date of Discharge: 02/09/24 DS: Diagnosis Discharge Diagnosis (1) S/P colectomy: Status: Acute Problem details: descending colectomy with end ileostomy and sigmoid mucous fistula (2) Colonic obstruction: Status: Acute Problem details: -ex lap 02/05; Dr. Bolton. 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 NG tube is out. Diet has advanced to sips of clear liquids. Patient is still fairly distended. At high risk for both ileus and third-spacing of fluid. Continue on antibiotics, IV fluids, monitoring of urine output. (3) Hypokalemia due to excessive gastrointestinal loss of potassium: Status: Acute Problem details: Continue potassium bicarb effervescent tablet 25 mEq daily to address high potassium loss in colostomy output. If colostomy output does not improve start Metamucil. (4) DAI (acute kidney injury): Status: Acute Problem details: Likely pre renal azotemia. Resolved (5) Hypertension: Status: Acute Problem details: Resume amlodipine today. Restart lisinopril (6) Hyperlipidemia: Status: Acute Problem details: Resume rosuvastatin DS: Summary Status at Discharge Cognitive/behavioral status at discharge: 73-year-old male with history of prostate cancer admitted to the hospital on January 28 2024 with a 1 week history of left flank pain. Was subsequently diagnosed with perforated diverticulitis. This was medically managed with ertapenem and he was discharged on January 30 and continued on outpatient ertapenem. On February 04 he return to the hospital reporting vomiting and worsening pain. Repeat evaluation showed colonic obstruction. He was taken to the OR by Dr. Bolton where his colonic obstruction was managed with a descending colectomy, and proximal descending colostomy with sigmoid mucous fistula. He also had removal of umbilical mesh from a prior umbilical hernia repair. In the hospital he was on NG suctioning which was removed due to improving symptoms. Peck catheter has been removed. He is treated with ertapenem. Reports generally feeling better. He is putting out moderate stool and gas in his colostomy February 07: Patient reports continued to improve with pain. He has gradually advancing his diet. No fever. No dyspnea. Ambulating in the halls. Moderate amount of liquid stool in his colostomy. February 08: Patient reports doing well. Abdominal pain primarily related to sitting up or position change. Advanced to a regular diet and tolerating this well. Persistent hypokalemia likely due to high output from colostomy. Functional status at discharge: independent ambulation Overall status at discharge: patient is progressing back to baseline Time Spent with Patient Time attestation: Total time spent providing and/or coordinating discharge services: Time spent: Greater than 30 minutes Exam Narrative: Exam Narrative: He is alert appears in no distress. Respirations are clear to auscultation. Breathing is unlabored. Cardiovascular: S1, S2, regular rate and rhythm. No murmur gallop or rub. Abdomen: Bowel sounds are present. Abdomen is soft with mild left flank tenderness. Wound is clean and dry without erythema or drainage. Extremities without edema. Const: Vital Signs, click to edit/add: Vital Signs - 24 hr 02/08/24 19:00 02/08/24 23:00 02/08/24 23:00 Temperature 97.4 F L Pulse Rate [Pulse Oximeter] 77 Respiratory Rate 18 16 16 Blood Pressure [Le ft Arm] 134/80 Pulse Oximetry 96 96 Oxygen Delivery Me thod Room Air Room Air Oxygen Flow Rate 02/08/24 23:00 02/09/24 03:00 02/09/24 07:30 Temperature 97.4 F L 97.4 F L Pulse Rate [Pulse Oximeter] 77 67 74 Respiratory Rate 18 16 16 Blood Pressure [Le ft Arm] 134/80 137/89 Pulse Oximetry 96 95 Oxygen Delivery Me thod Room Air Room Air Oxygen Flow Rate 6 02/09/24 07:30 02/09/24 07:30 02/09/24 11:00 Temperature 98.9 F 98.7 F Pulse Rate [Pulse Oximeter] 74 83 Respiratory Rate 16 16 18 Blood Pressure [Le ft Arm] 143/90 H 142/87 H Pulse Oximetry 97 97 95 Oxygen Delivery Me thod Room Air Room Air Oxygen Flow Rate Documenting provider has reviewed patient's vital signs: yes DS: Data Data Completed and Pending Labs on day of discharge: Labs from last 24 hours 02/09/24 02/09/24 14:30 06:12 WBC 8.72 RBC 3.55 L Hgb 10.1 L Hct 31.6 L MCV 89 MCH 29 MCHC 32 RDW Coeff of Aida 14.3 Plt Count 245 Neut % (Auto) 77.2 H Lymph % (Auto) 9.3 L Barnwell % (Auto) 8.7 Eos % (Auto) 3.7 Baso % (Auto) 0.2 Neut # (Auto) 6.70 Lymph # (Auto) 0.80 L Barnwell # (Auto) 0.80 Eos # (Auto) 0.32 Baso # (Auto) 0.02 Abs Immat Gran (auto) 0.08 Imm/Tot Granulo (auto) 0.9 Sodium 137 Potassium 3.5 L 3.0 L Chloride 105 Carbon Dioxide 29 Anion Gap 3 L BUN 12 Creatinine 0.8 Estimated Creat Clear 71.12 Estimated GFR 94 Glucose 89 Calcium 7.9 L C-Reactive Protein 17.[address] scan - abdomen: Radiologist's impression: INDICATION: Diarrhea, recent perforated diverticulitis managed nonoperatively. TECHNIQUE: CT abdomen and pelvis acquired with 118 cc Isovue 370 IV contrast. COMPARISON: CT abdomen and pelvis 01/28/2024. FINDINGS: Lower chest: Previously noted 7 millimeter nodule in the left lower lobe is out of field of view. Right lower lobe atelectasis. Coronary artery calcification. Liver: Unremarkable. Normal in size and attenuation. No suspicious masses. Gallbladder and bile ducts: Unremarkable. No stones or inflammation. No biliary dilatation. Pancreas: Unremarkable. No mass or inflammation. Spleen: Unremarkable. Normal in size. No masses. Adrenal glands: Unremarkable. No nodules. Kidneys: Mild atrophy of the kidneys. Bilateral subcentimeter hypodense lesions, likely cysts and stable peripelvic cysts. GI tract: Decreased inflammation of the previously noted diverticulitis and the previously noted abscess has nearly resolved. There is marked dilation of the colon, particularly the cecum measuring up to 9.5 centimeters with transition at the site of improved diverticulitis at the descending colon. Vasculature: Abdominal aorta is normal in caliber. Mesenteric arteries are patent. Lymph nodes: No lymphadenopathy. Peritoneum/Abdominal Wall: Small fat containing bilateral inguinal hernias. Small volume of fluid along the right pericolic gutter. Pelvis: Unremarkable. Bones: No acute fracture or dislocation. Moderate degenerative disease of the spine. Grade 1 anterolisthesis of L5 on S1 with bilateral pars interarticularis defects. IMPRESSION: Large bowel obstruction with transition at the site of diverticulitis involving the descending colon. There is marked dilation of the cecum measuring 9.5 centimeters with fluid in the right pericolic gutter, concerning for impending cecal perforation. Improved descending colonic diverticulitis with near-complete resolution of the previously noted abscess and decreased surrounding inflammatory changes. Please note that all CT scans at this facility use dose modulation, iterative reconstruction, and/or weight-based dosing when appropriate to reduce radiation dose to as low as reasonably achievable. Dictated by Bonnie Christiansen MD @ 02/05/2024 3:54:37 PM ----- ADDENDUM ----- These results were communicated to Dr. Contreras on 02/05/24 at 4:01 pm. Dictated by Bonnie Christiansen MD @ Feb 05 2024 4:03PM (Electronically Signed) For Patients: As a result of the Cures Act, medical imaging exams and procedure reports are released immediately into your electronic medical record. You may view this report before your referring provider. If you have questions, please contact your health care provider. INDICATION: Diarrhea, recent perforated diverticulitis managed nonoperatively. TECHNIQUE: CT abdomen and pelvis acquired with 118 cc Isovue 370 IV contrast. COMPARISON: CT abdomen and pelvis 01/28/2024. FINDINGS: Lower chest: Previously noted 7 millimeter nodule in the left lower lobe is out of field of view. Right lower lobe atelectasis. Coronary artery calcification. Liver: Unremarkable. Normal in size and attenuation. No suspicious masses. Gallbladder and bile ducts: Unremarkable. No stones or inflammation. No biliary dilatation. Pancreas: Unremarkable. No mass or inflammation. Spleen: Unremarkable. Normal in size. No masses. Adrenal glands: Unremarkable. No nodules. Kidneys: Mild atrophy of the kidneys. Bilateral subcentimeter hypodense lesions, likely cysts and stable peripelvic cysts. GI tract: Decreased inflammation of the previously noted diverticulitis and the previously noted abscess has nearly resolved. There is marked dilation of the colon, particularly the cecum measuring up to 9.5 centimeters with transition at the site of improved diverticulitis at the descending colon. Vasculature: Abdominal aorta is normal in caliber. Mesenteric arteries are patent. Lymph nodes: No lymphadenopathy. Peritoneum/Abdominal Wall: Small fat containing bilateral inguinal hernias. Small volume of fluid along the right pericolic gutter. Pelvis: Unremarkable. Bones: No acute fracture or dislocation. Moderate degenerative disease of the spine. Grade 1 anterolisthesis of L5 on S1 with bilateral pars interarticularis defects. IMPRESSION: Large bowel obstruction with transition at the site of diverticulitis involving the descending colon. There is marked dilation of the cecum measuring 9.5 centimeters with fluid in the right pericolic gutter, concerning for impending cecal perforation. Improved descending colonic diverticulitis with near-complete resolution of the previously noted abscess and decreased surrounding inflammatory changes. Please note that all CT scans at this facility use dose modulation, iterative reconstruction, and/or weight-based dosing when appropriate to reduce radiation dose to as low as reasonably achievable. Dictated by Bonnie Christiansen MD @ 02/05/2024 3:54:37 PM Discharge Plan Discharge Disposition: Home, Self-Care Date of Admission: 02/05/24 19:48 Attending Provider on Discharge: Mercedes Bolton Consulting Providers: Silvia White Primary Care Provider: Raymond Hurst Condition: Improved Anticipated Discharge Date/Time: 02/09/24 15:18 Discharge Medications: New Effer-K 25 mEq tablet, effervescent 25 meq PO DAILY Qty: 30 0RF Continued lisinopril 20 mg tablet 20 mg PO DAILY amlodipine 5 mg tablet 5 mg PO DAILY rosuvastatin 10 mg tablet 10 mg PO Q48H Discontinued ertapenem 1 gram recon soln 1 g IV DAILY Discharge Orders: Discharge Order (Routine); Ordered 02/09/24 Ordered By: Emanuel Castañeda Additional Instructions: Return to [facility] lab in 2 days for basic metabolic panel. Discuss results with Dr Castañeda [phone]. Activity Level: No strenuous activity Activity Detail: Okay to take shower at any time. Patient should avoid swimming or submerging his abdomen under the water. Patient needs ostomy care teaching and referral to wound/ostomy Clinic. Discharge Diet: Regular Follow Up Appointments: Mercedes Bolton MD [Staff Physician] - (2 weeks [facility]) Raymond Hurst MD [Primary Care Provider] - (Follow-up in 1 week. Basic metabolic panel in 1 week) Forms: [facility] Info Instructions
--- NOTE | 2024-02-09 19:32 | PC.NURSE ---
Addendum entered by Carmen Gabriel RN 02/09/24 19:45: signed forms accidently sent home with pt and spouse. Original Note: Nursing Care Hours [id number] Pt this shift calm and cooperative, alert and oriented. Pain rated 1-3/4, tolerating treatment per eMAR. Tolerating regular diet, eating small amounts. Education provided on post colostomy diet, low fiber options. VSS. Voiding sufficiently. Pt assisted with emptying pouch into toilet. Silvia from wound clinic stopped by and provided education to pt and spouse as well as changed ostomy bag. Pt took shower. No IV in place. DC education went over with pt and spouse. 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 Discussed with pt and spouse pain and medication management. At that time, pt and spouse expressed concern about bilat upper leg edema. Certified Nurses Aide discussed post op third spacing with them and ways to help move the fluid. Pt spouse still did not feel comfortable leaving until a doctor confirmed in was safe to do so. Dr La stopped by the room and reinforced the writers teaching and helped decrease the spouse and pt anxiety. Pt and spouse both stated they felt better about going home. Certified Nurses Aide reminded them of all the phone numbers they can call and resources to reach out to for questions or concerns. Encouraged both pt and spouse to take it easy, but encourage ambulation, and to work on self care to prevent caregiver burnout. Pt declined wheelchair and ambulated off unit in stable condition.
--- NOTE | 2024-02-10 11:14 | PC.NURSE ---
Did a follow-up call to see how patient's first night went at home as he has a new ostomy. Patient was unavailable and states they had a good night. Asked about getting set up with supplies at home and states Silvia was arranging this. Will follow up with Silvia to see about supplies.
[2024-02-12 04:27] LABS: Carcinoembryonic Antigen 1.1 ng/mL
--- NOTE | 2024-02-12 11:16 | PM.EN ---
Chart Event Note Date Seen: 02/12/24 Chart Event Note: 73-year-old male seen in followup of hospitalization for diverticulitis with obstruction. Patient is in lab today for recheck of electrolytes. He was having moderate high output from his ostomy and this was thought to be the cause of hypokalemia. He was placed on potassium 25 mEq effervescent tablets daily for his potassium replacement. He was also restarted on his lisinopril. Today's potassium is 3.3. I recommended he double his potassium dose to 2 ever vest at tablets a day and get a recheck of his potassium next week at [facility]. He reports otherwise generally doing well. His ostomy output is improved. He has been informed of his new cancer diagnosis.
== END 2024-02-09 18:36 | disposition home or self-care (01) | DRG 329 ==
LOC: ED 18:38 → MEDSURG 02-06 03:08 → ED 02-06 09:46 → MEDSURG 02-06 10:00
PROVIDERS: Family Medicine; Admitting Provider Surgery; Emergency Provider Emergency Medicine; PCP Family Medicine; Visit Provider Surgery
PROC: 0DTM0ZZ Resection of Descending Colon, Open Approach (ICD-10-PCS; 2024-02-05 19:30)
DX: K56.50 Intestinal adhesions [bands], unspecified as to partial versus complete obstruction (principal); K65.1 Peritoneal abscess; N17.9 Acute kidney failure, unspecified; K57.20 Diverticulitis of large intestine with perforation and abscess without bleeding; G89.18 Other acute postprocedural pain; R60.0 Localized edema; E87.6 Hypokalemia; D64.89 Other specified anemias; I10 Essential (primary) hypertension; E78.5 Hyperlipidemia, unspecified; Z85.46 Personal history of malignant neoplasm of prostate
CPT/HCPCS: 00840; 36415; 64488; 74177; 76942; 80048; 80053; 82378; 82803; 83605; 83690; 83735; 83880; 84132; 84484; 85025; 85610; 86140; 88302; 88309; 88341; 88342; 94664; 96360; 96365; 99100; 99140; 99211; 99284; 99285; A9270; C9290; J0131; J0330; J0665; J1100; J1170; J1335; J1650; J1885; J2250; J2371; J2405; J2470; J2543; J2704; J3010; J3475; J3490; J7030; J7050; J7120; Q9967

== ENCOUNTER 2024-02-06 13:00 | Outpatient (RCR) | payer MEDICARE, BC, SELFPAY ==
[2024-02-01 13:15] VITALS: RESP 20; O2SAT 96
[2024-02-01] MEDS: ERTAPENEM 1 GM in 0.9 % SODIUM CHLORIDE Mini-bag 100 ML IVPB (13:23)
[2024-02-02 13:00] VITALS: BP 143/79; PULSE 80; RESP 16; TEMP 36.6; O2SAT 96
[2024-02-02] MEDS: ERTAPENEM 1 GM in 0.9 % SODIUM CHLORIDE Mini-bag 100 ML IVPB (13:17)
[2024-02-02] MEDS: 0.9 % SODIUM CHLORIDE 250 ml IV (14:43)
[2024-02-02] MEDS: SODIUM CHLORIDE 0.9 % (FLUSH) 10 ML SYRINGE IVF (14:44)
[2024-02-03 12:49] VITALS: BP 111/72; PULSE 86; RESP 16; TEMP 36.7; O2SAT 96
[2024-02-03] MEDS: 0.9 % SODIUM CHLORIDE 250 ml IV (13:00)
[2024-02-03] MEDS: ERTAPENEM 1 GM in 0.9 % SODIUM CHLORIDE Mini-bag 100 ML IVPB (13:04)
[2024-02-03] MEDS: SODIUM CHLORIDE 0.9 % (FLUSH) 10 ML SYRINGE IVF (13:35)
[2024-02-04 12:59] VITALS: BP 120/80; PULSE 92; RESP 16; TEMP 36.4; O2SAT 96
[2024-02-04] MEDS: ERTAPENEM 1 GM in 0.9 % SODIUM CHLORIDE Mini-bag 100 ML IVPB (13:16)
[2024-02-04] MEDS: SODIUM CHLORIDE 0.9 % (FLUSH) 10 ML SYRINGE IVF (13:57)
[2024-02-05 13:09] VITALS: BP 109/70; PULSE 86; RESP 16; TEMP 36.4; O2SAT 97
[2024-02-05 13:10] VITALS: BP 94/47; PULSE 99
[2024-02-05] MEDS: SODIUM CHLORIDE 0.9 % (FLUSH) 10 ML SYRINGE IVF (13:20)
[2024-02-05] MEDS: 0.9 % SODIUM CHLORIDE 250 ml IV (13:30)
[2024-02-05] MEDS: 0.9 % SODIUM CHLORIDE 1000 ml 1,000 ML IV (13:42)
--- NOTE | 2024-02-05 14:07 | PC.NURSE ---
Pt present at [facility] for IV antibiotics. Upon arrival, pt shared that he is really feeling unwell. He got home yesterday and vomited and has been having diarrhea. He also reports having no appetite and being unable to eat. RN assessed vitals and pt is orthostatic (see VS flowsheet). Restarted his IV and started NS. Called Dr. Espitia, hospitalist and she came to [facility] to evaluate pt. After their discussion, it was decided pt should be brought to ER. This was done. Support offered.
== END 2024-05-23 13:00 | disposition home or self-care (01) ==
LOC: CCIC 13:00
PROVIDERS: PCP Family Medicine; Referring Provider Family Medicine; Visit Provider Hospitalist
DX: K57.32 Diverticulitis of large intestine without perforation or abscess without bleeding (principal)
CPT/HCPCS: 96360; 96365; 99211; G0463; C9290; J0665; J1335; J7030; J7050

== ENCOUNTER 2024-02-12 10:15 | Outpatient (CLI) | payer MEDICARE, BC, SELFPAY ==
[2024-02-12 10:50] LABS: Chloride* 102 mmol/L (96-114); Potassium* 3.3 mmol/L (3.6-5.1); Sodium* 140 mmol/L (135-149)
[2024-02-12 10:53] LABS: Anion Gap 5 mEq/L (7-15); Blood Urea Nitrogen* 5 mg/dL (7-30); Carbon Dioxide* 33 mmol/L (20-32); Creatinine* 0.8 mg/dL (0.5-1.5); Estimated Glomerular Filt Rate 94 ml/min; Glucose* 108 mg/dL (60-115)
[2024-02-12 10:54] LABS: Calcium* 8.8 mg/dL (8.4-10.6)
== END 2024-02-12 10:16 | disposition home or self-care (01) ==
LOC: LAB 10:18
PROVIDERS: PCP Family Medicine; Visit Provider Family Medicine
DX: E87.6 Hypokalemia (principal); K57.92 Diverticulitis of intestine, part unspecified, without perforation or abscess without bleeding; C18.6 Malignant neoplasm of descending colon; I10 Essential (primary) hypertension
CPT/HCPCS: 36415; 80048

== ENCOUNTER 2024-02-19 16:12 | Outpatient (CLI) | payer MEDICARE, BC, SELFPAY ==
--- NOTE | 2024-02-19 16:30 | PE_ITS ---
[facility] [address] [facility] [address] Phone:?[phone] Fax:?[phone] Referring Physician Information: Raymond Velasquez i M.D. [address] [facility] [address] Phone:?[phone] Fax:?[phone] Patient:?Juan Ozuna D.O.B:?1950 Sex:?Male Phone:?[phone] [facility] MRN:?[id number] Exam Date:?02/19/2024 EXAM:?PET/CT EYES TO THIGHS, CANCER INITIAL STAGING CLINICAL INFORMATION: Colorectal cancer TECHNICAL INFORMATION: Helical acquisition of data was obtained from the orbits to the upper thighs with reconstruction of 3.75 mm thick images at 3.[address] data was used for attenuation correction. PET scanning was performed through the same anatomic range 60 minutes following administration of 11.74 mCi of 18-FDG delivered intravenously. The patient's glucose at the time of the injection was 76 mg/dL. PET, CT and PET/CT fusion images are interpreted using a computer viewing workstation. PET, CT and PET/CT fusion images were archived and saved in the patient's permanent medical record. COMPARISON: None INTERPRETATION: Head and Neck: There are no abnormal hypermetabolic foci within the head or neck. There is physiologic uptake in the intracranial soft tissues. Chest: Mediastinal blood pool activity with a mean SUV of 2.64. A 7 mm nodule in the left upper lobe (series 202 image 113) with mild FDG avidity and an SUV max of 3.3. A small left axillary lymph node measures 7 mm in short access with an SUV max of 3.66. Coronary artery atherosclerosis. Abdomen and Pelvis: Background liver parenchymal uptake with a mean SUV of 2.85. Partial colectomy changes with left lower quadrant colostomy. Edema/swelling in the ventral abdomen and colostomy site with associated radiotracer avidity with an SUV max of 13.07. No discrete lesion is visualized. FDG uptake extends through the ventral abdominal wall and along the skin surface. Another focus of uptake in the peripheral left lower quadrant region (fused image 218) with an SUV max of 10.97. No discrete CT correlate lesion. No hypermetabolic lymphadenopathy in the abdomen or pelvis. Focus of uptake in the left adrenal gland with an SUV max of 4.59. No discrete correlate lesion. There is physiologic excretion of radiotracer in the urine and bowel. Sigmoid diverticulosis. Aortoiliac atherosclerosis. Skeleton, Musculature, and Integument: No abnormal hypermetabolic foci within the skeleton. No raymond osteoblastic or osteolytic disease. CONCLUSION: * Postsurgical changes of partial colectomy with left lower quadrant colostomy. Ill-defined radiotracer uptake within the left ventral/left lower quadrant region as well as the colostomy site. Findings may be secondary to postsurgical changes. Correlate with serum tumor markers and consider short interval follow-up CT abdomen/pelvis in 2-3 months to ensure stability/resolution. * An additional more pronounced focus of FDG avidity in the left lateral abdominal region without definite CT correlate lesion. Findings may also be related to postsurgical changes with a peritoneal implant not excluded. Attention on follow-up imaging. * A 7 mm lung nodule in the left upper lobe with low level radiotracer avidity. No other lung nodules are visualized. Findings are nonspecific and may reflect infectious/inflammatory nodule versus early metastasis. Correlate with serum tumor markers. Consider short interval follow-up CT chest in 2-3 months. * Mild low-level radiotracer avidity associated with the left adrenal gland without a discrete CT correlate lesion. Attention on follow-up imaging. * A small left axillary lymph node with low-level radiotracer avidity is favored to be reactive. Attention on follow-up imaging. Electronically signed on 02/20/2024 11:33:00 AM by Mohinder Decker D.O Addendum A Comparison exams were made available from 02/05/2024 and 01/28/2024 No peritoneal nodularity was seen on the presurgical exams. Haziness in the ventral abdominal region with low level uptake appears most compatible with postsurgical changes. The other focus of uptake along the peritoneum in the left lateral abdominal region was in the region of the patient's primary neoplasm. This could also be infectious/inflammatory in nature with residual disease not excluded. Recommend short interval follow-up CT abdomen/pelvis in 2-3 months. The left upper lobe lung nodule is stable in size from the comparison exams. As before, recommend follow-up CT chest in 2-3 months. Electronically signed on 03/05/2024 2:33:00 PM by Mohinder Decker D.O
== END 2024-02-19 16:13 | disposition home or self-care (01) ==
LOC: RAD 16:13
PROVIDERS: PCP Family Medicine; Visit Provider Family Medicine
DX: C18.6 Malignant neoplasm of descending colon (principal); R91.8 Other nonspecific abnormal finding of lung field; E27.9 Disorder of adrenal gland, unspecified; R59.0 Localized enlarged lymph nodes
CPT/HCPCS: 78815; A9552

== ENCOUNTER 2024-03-08 08:15 | Day surgery (SDC) | payer MEDICARE, BC, SELFPAY ==
[2024-03-08] MEDS: LACTATED RINGERS 1000 ML 1,000 ML 100 ML IV (08:25)
[2024-03-08 08:34] VITALS: BMI 31.4
--- NOTE | 2024-03-08 09:15 | P.GSCN_ITS ---
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 Patient is recovering well from his surgery. His eating is improving, his bowel movements are more solidified. He denies any rashes or infections. He has never had any procedures on his neck. Review of Systems Narrative: General: no fevers HENT: no problems swallowing CV: no shortness of breath Resp: no cough GI: No nausea, vomiting, abdominal pain : no dysuria, no increased urinary frequency, no hematuria Skin: no new rashes Musculoskeletal: no back pain Neuro: no muscle weakness Psyche: no depression, no anxiety PFSH PFSH Medical History (Updated 02/27/24 @ 14:34 by Silvia White CNP) Colostomy in place ?Z93.3 - Colostomy status (ICD-10) Diverticulitis of intestine with perforation and abscess ?K57.80 - Diverticulitis of intestine, part unspecified, with perforation and abscess without bleeding (ICD-10) Prostate cancer ?C61 - Malignant neoplasm of prostate (ICD-10) Hyperlipidemia ?E78.5 - Hyperlipidemia, unspecified (ICD-10) Hypertension ?I10 - Essential (primary) hypertension (ICD-10) Surgical History (Updated 03/04/24 @ 14:02 by Ruthie Rivera RN) H/O Achilles tendon repair ?Z98.890 - Other specified postprocedural states (ICD-10) S/P colectomy ?Z90.49 - Acquired absence of other specified parts of digestive tract (ICD- 10) History of right inguinal hernia repair ?Z98.890 - Other specified postprocedural states (ICD-10) ?Z87.19 - Personal history of other diseases of the digestive system (ICD-10) History of umbilical hernia repair ?Z98.890 - Other specified postprocedural states (ICD-10) ?Z87.19 - Personal history of other diseases of the digestive system (ICD-10) History of robot-assisted laparoscopic radical prostatectomy ?Z90.79 - Acquired absence of other genital organ(s) (ICD-10) Family History (System 02/05/24 @ 13:55 by Rosaura Acosta) Mother Breast cancer Sister Breast cancer Father Prostate cancer Heart disease Social History Narrative: He is and lives with his , Cathy, who is healthcare power of transactional attorney. Code status is full. He does not smoke. Does not drink alcohol. What is your current living situation?: I presently have a place to live Problems where you live: no known problems Problems where you live details: NONE In the past 12 months, utilities in danger of being shut off: no In past 12 months, lack of transportation kept you from medical appts, meetings, work, or getting things needed for daily living: no In the past 12 mos, have been you worried that your food would run out before you had money to buy more?: never true In the past 12 mos, the food you bought just didn't last and you didn't have money to buy more?: never true Highest level of school completed/degree received: Bachelor's degree Smoking Status: Never smoker Do you use any of these nicotine containing products: None Second hand tobacco smoke exposure: No How often do you have a drink containing alcohol: never AUDIT-C Alcohol total score: 0 Non-prescribed substance use: denies use Caffeine: Yes How often does anyone, including family, friends and others, physically hurt you : never How often does anyone, including family, friends and others, insult or talk down to you: never How often does anyone, including family, friends and others, threaten you with harm: never How often does anyone, including family, friends and others, scream or curse at you: never service: No Meds Home Medications and Allergies Home Medications ?Medication ?Instructions ?Recorded ?Confirmed ?Type lisinopril 20 mg tablet 20 mg PO DAILY 01/28/24 03/08/24 History rosuvastatin 10 mg tablet 10 mg PO Q48H 01/28/24 03/08/24 History acetaminophen 500 mg tablet 1,000 mg PO Q6H PRN 02/25/24 03/08/24 History (Tylenol Extra Strength) amlodipine 5 mg tablet 5 mg PO DAILY 03/05/24 03/08/24 History Allergies Allergy/AdvReac Type Severity Reaction Status Date / Time atorvastatin Allergy Mild Muscle Pain Verified 03/08/24 08:27 simvastatin [From Zocor] Allergy Mild Muscle Pain Verified 03/08/24 08:27 Exam Narrative: Exam Narrative: General appearance: Alert, cooperative, and in no distress Neck: No scars were noted in the neck, no rashes or open sores. Pulmonary: Chest symmetric, lungs clear bilaterally Cardiovascular Heart: Regular rate and rhythm, S1, S2, no murmurs/rubs/gallops Skin: Normal skin color, texture, and turgor. No rashes or lesions. Psychiatric: Alert, cooperative, normal affect. Results Labs Labs: All other labs normal. Progress Note:A&P Assessment and plan (1) Adenocarcinoma of colon: Status: Acute Assessment and Plan: 73-year-old male with adenocarcinoma of the descending colon s/p resection presents now for Port-A-Cath placement. I discussed with the patient and his the procedure in detail. The risks associated procedure including infection, bleeding, and pneumothorax were also discussed with the patient. Patient agreed to proceed. Patient has stopped his Lovenox 24 hours ago.
[2024-03-08 09:18] VITALS: BP 127/76; PULSE 63; RESP 16; TEMP 36.8; O2SAT 97
[2024-03-08] MEDS: CEFAZOLIN 2 GM INJ IVP (09:29)
--- NOTE | 2024-03-08 09:30 | CRLHL7_ITS ---
For Patients: As a result of the Century Cures Act, medical imaging exams and procedure reports are released immediately into your electronic medical record. You may view this report before your referring provider. If you have questions, please contact your health care provider. Indication: PORTACATH PLACEMENT Technique: Three fluoroscopic images of the upper chest. Fluoroscopic time 55.2 seconds. IMPRESSION: Fluoroscopic guidance for Port-A-Cath placement. Dictated by Bigg Jaime MD @ 03/08/2024 11:03:10 AM (Electronically Signed)
[2024-03-08] MEDS: HEPARIN 500 UNIT/5 ML SYRINGE IVF (09:49)
[2024-03-08] MEDS: 0.9% SODIUM CHL 50 ML VIAL INJECTION (09:49)
[2024-03-08] MEDS: BUPIVACAINE 0.25% 30 ML INJECTION (09:49)
--- NOTE | 2024-03-08 10:09 | P.GSOP_ITS ---
Operative Note Date of procedure: 03/08/24 Pre-op diagnosis: 1. Metastatic adenocarcinoma of descending colon. Post-op diagnosis: Same Type of Procedure: 1. Ultrasound and fluoroscopy guided right internal jugular Port-A-Cath placement. Indications: 73-year-old male who was recently diagnosed with metastatic descending colon cancer s/p descending colectomy with end colostomy and mucous fistula. His pathology came back with lymph node metastases. Patient was seen by Oncology, and adjuvant chemotherapy was recommended. Patient was referred to us for Port-A-Cath placement. The procedure was discussed in detail. The risks associated procedure including infection, bleeding, and pneumothorax were all discussed with the patient, and he agreed to proceed. Procedure Description: After discussing the risks and benefits of the procedure, the patient signed informed consent.? The operative site was marked and the patient was brought to the operating room and placed on the operating table in supine position.? Care was taken to pad the patient's pressure points.?? The patient was then sedated by anesthesia.?? The operative site was then prepped and draped in the usual sterile fashion.? A time-out was then performed. Ultrasound was brought on to the field and the right internal jugular vein was assessed. This was found to be large and easily compressible. The base of the neck directly overlying the internal jugular vein was then anesthetized with 1% lidocaine and 0.25% Marcaine mixture, and an introducer needle was inserted into the internal jugular vein using ultrasound guidance. Entry into the vein was confirmed by the presence of dark, nonpulsatile blood. A guide wire was advanced through the needle. The introducer needle was removed, leaving the wire in place. Fluoroscopy was brought onto the field and used to confirm the passage of the wire through the superior vena cava and into the inferior vena cava. Lidocaine was then used to infiltrate the port skin site, along with the proposed tunneling tract. A 3 cm incision was made at the site of the port pocket and subcutaneous tissue was dissected down using electrocautery. Subcutaneous pocket was created with blunt dissection and electrocautery. The catheter was advanced through the subcutaneous tissue using a tunneling trocar, exiting the incision at the base of the neck. The trocar was then disconnected. Fluoroscopy was again brought on to the field and the internal jugular vein and adjacent subcutaneous tissue was dilated with a pre-split introducer sheath in place. The wire was removed and the catheter was inserted into the introducer sheath. As the catheter was advanced, the sheath was split and divided, removing the sheath as the catheter was advanced into place. Fluoroscopy was again brought on to the field and the catheter position was examined. The entire course of the catheter was then viewed, and catheter was pulled back under direct visualization to ensure that the tip is in the SVC. The port was connected to the catheter tip and placed into previously created po cket. Prolene was used to place anchoring port sutures and the port was then secured in the pocket. The flow through the catheter was checked with a syringe, and found to be excellent. The incision at the base of the neck was then closed with a single interrupted 4-0 monocryl stitch and dressed with a Steri-Strip and a sterile bandage. Subdermal layer was re-approximated with interrupted 3-0 vicryl stitches and skin over the port was closed with 4-0 monocryl using subcuticular stitch. Collins needle was inserted through the skin into the port and the port was flushed with heparinized saline. The needle was then removed. Steri strips, sterile 2x2 and Tegaderm was applied over the incision. The patient was then roused and brought to same day surgery in satisfactory condition. Sponge and needle counts were correct at the end of the procedure. Post procedure CXR was ordered to be done in same day surgery. Sterile dressings were then applied. ? The patient was then woken and transported to the recovery area in stable condition. ? Findings: Right internal jugular Port-A-Cath placed with no difficulties. Anesthesia: MAC and local Surgeon: Mercedes Bolton MD Estimated blood loss (mL): 5 Condition: stable Disposition: same day
[2024-03-08 10:10] VITALS: BP 106/64; PULSE 67; RESP 16; TEMP 36.6; O2SAT 95
--- NOTE | 2024-03-08 10:14 | CRLHL7_ITS ---
For Patients: As a result of the Cures Act, medical imaging exams and procedure reports are released immediately into your electronic medical record. You may view this report before your referring provider. If you have questions, please contact your health care provider. INDICATION: Port-A-Cath placement COMPARISON: None TECHNIQUE: Single view study as an upright portable exam FINDINGS: TUBES AND LINES: Right IJ catheter ending in the SVC HEART AND MEDIASTINUM: The heart size is normal. The mediastinal contour appears normal for patient age. LUNGS AND PLEURAL SPACES: The lungs appear normal.The pleural spaces are unremarkable. OSSEOUS STRUCTURES: Age-appropriate appearance. No acute focal finding. IMPRESSION: Right IJ Port-A-Cath ending in the SVC. No pneumothorax. Dictated by Mohinder Becerril MD @ 03/08/2024 10:37:47 AM (Electronically Signed)
[2024-03-08 10:15] VITALS: BP 107/61; PULSE 65; RESP 16; O2SAT 95
--- NOTE | 2024-03-08 10:15 | W.ANESCHARGE ---
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
[2024-03-08 10:30] VITALS: BP 109/62; PULSE 64; RESP 16; O2SAT 95
[2024-03-08 10:45] VITALS: BP 123/77; PULSE 64; RESP 16; O2SAT 97
== END 2024-03-08 11:09 | disposition home or self-care (01) ==
PROVIDERS: PCP Family Medicine; Visit Provider Surgery
PROC: (CPT 36561; principal; 2024-03-08 09:30)
DX: Z45.2 Encounter for adjustment and management of vascular access device (principal); C18.6 Malignant neoplasm of descending colon; C77.2 Secondary and unspecified malignant neoplasm of intra-abdominal lymph nodes
CPT/HCPCS: 36561; 00532; 71045; 76000; 76998; 99100; C1788; J0665; J0690; J1100; J1642; J2250; J2371; J2405; J2704; J3010; J3490; J7120

== ENCOUNTER 2024-06-07 08:47 | Outpatient (CLI) | payer MEDICARE, BC, SELFPAY ==
--- NOTE | 2024-06-07 09:00 | CRLHL7_ITS ---
For Patients: As a result of the Century Cures Act, medical imaging exams and procedure reports are released immediately into your electronic medical record. You may view this report before your referring provider. If you have questions, please contact your health care provider. Indication: FOLLOW UP ON ADENOCARCINOMA OF COLON Technique: CT Chest/Abd/Pelvis W/ 111CC ISOVUE 370 Please note that all CT scans at this facility use dose modulation, iterative reconstruction, and/or weight-based dosing when appropriate to reduce radiation dose to as low as reasonably achievable. Comparison: CT PET 02/19/2024, CT 02/05/2024 Findings: In the chest, 6 millimeter nodule within the left upper lobe is noted, 3/35. No additional nodules. No infiltrate or edema. No effusion or pneumothorax. Chronic elevation right hemidiaphragm with adjacent atelectasis. Similar left axillary lymph node is present measuring 6 millimeters in transverse dimension, 2/38. No enlarged mediastinal or hilar lymph nodes. No fracture. In the abdomen, postop changes of partial colectomy noted with diverting left-sided ostomy. No bowel obstruction. Decreased ill-defined densities within the anterior omental fat compared to the prior CT PET scan. No bowel obstruction. Normal loops of small bowel are present within the left side of the abdomen without evidence of peritoneal implant. There is no intrahepatic lesion. No adrenal nodule. Bilateral renal parapelvic cysts. No hydronephrosis. Normal ureters. Ectasia of the aorta with vascular calcifications. Pancreas normal. Normal spleen. Gallbladder unremarkable. A few scattered subcentimeter retroperitoneal lymph nodes are present. In the pelvis, the bladder is within normal limits. Diverticulosis noted within the sigmoid colon. Normal appendix. No fluid collection or abscess. No pelvic or inguinal adenopathy. Grade 1 spondylolytic spondylolisthesis of L5 on S1. Discogenic spurring L5-S1 with associated disc space narrowing. Impression: No significant interval change in the left upper lobe pulmonary nodule and left axillary lymph node. Decreased ill-defined densities within the anterior omentum. No omental implant within the left side of the abdomen. Normal small bowel loops appear to be present within this area. Please note that all CT scans at this facility use dose modulation, iterative reconstruction, and/or weight-based dosing when appropriate to reduce radiation dose to as low as reasonably achievable. Dictated by Bigg Jaime MD @ 06/07/2024 12:40:37 PM (Electronically Signed)
== END 2024-06-07 08:48 | disposition home or self-care (01) ==
LOC: CT 08:51
PROVIDERS: PCP Family Medicine; Visit Provider Internal Medicine Hematology & Oncology
DX: C18.9 Malignant neoplasm of colon, unspecified (principal); R91.8 Other nonspecific abnormal finding of lung field
CPT/HCPCS: 71260; 74177; Q9967

== ENCOUNTER 2024-07-22 10:00 | Outpatient (RCR) | payer MEDICARE, BC, SELFPAY ==
--- NOTE | 2024-02-27 15:37 | ONC.NURNOTE ---
Patient and stopped by- Nam would prefer the FOLFOX option-
--- NOTE | 2024-03-02 11:23 | URNOTE ---
Request received for authorization for Oxaliplatin (J9263), Fluorouracil (J9190), Leucovorin (J0640), Aloxi (J2469). Prior authorization is not required as services are based on medical necessity and follow Medicare guidelines.
--- NOTE | 2024-03-16 11:57 | ONC.NURNOTE ---
Hypotension and Oncology Provider Visit Mr. Ozuna receives first cycle of FOLFOX chemotherapy for colon cancer on 03/17/24, preceeded by nursing chemo education. Spoke with his on 03/15/24. They feel comfortable proceeding with treatment without seeing Dr. Barnett prior as she has reviewed his treatment thoroughly on 02/25/24. We agreed that Mr. Ozuna would see Dr. Barnett again prior to cycle 2 of FOLFOX. Ms. Ozuna also reported that Mr. Ozuna is seeing Dr. Hurst, PCP, regarding hypotension with syncope, anticipating changes to his blood pressure medication.
[2024-03-17 08:29] VITALS: BP 128/74; PULSE 72; RESP 16; TEMP 36; O2SAT 98
[2024-03-17 08:43] LABS: Basophils Percent Auto 0.5 % (0.0-3.0); Eosinophils Percent Auto 3.6 % (0.0-7.0); Hematocrit 39.1 % (37.0-53.0); Hemoglobin* 12.3 gm/dL (13.5-17.5); Immature Granulocytes Pct Auto 0.2 %; Mean Corpuscular HGB Conc 32 gm/dL (32-36); Mean Corpuscular Hemoglobin 28 pg (26-34); Mean Corpuscular Volume 90 fL (80-100); Monocytes Percent Auto 9.8 % (0.0-11.0); Neutrophils Percent Auto 61.9 % (42.0-72.0); Platelet Count* 187 K/uL (140-440); RDW Coefficient of Variation % 15.3 % (11.5-15.5); Red Blood Count 4.37 m/uL (4.30-5.90); White Blood Count* 4.41 K/uL (4.50-11.00)
[2024-03-17 08:44] LABS: Slide Review Reflex No
[2024-03-17 08:56] LABS: Albumin* 4.2 g/dL (3.3-5.0); Chloride* 105 mmol/L (96-114); Potassium* 3.7 mmol/L (3.6-5.1); Sodium* 141 mmol/L (135-149)
[2024-03-17 08:58] LABS: Creatinine* 0.8 mg/dL (0.5-1.5); Est. Creatinine Clearance* 68.94; Estimated Glomerular Filt Rate 94 ml/min
[2024-03-17 08:59] LABS: Alanine Aminotransferase* 16 U/L (4-50); Alkaline Phosphatase* 55 U/L (40-150); Anion Gap 8 mEq/L (7-15); Aspartate Amino Transferase* 26 U/L (12-35); Blood Urea Nitrogen* 17 mg/dL (7-30); Calcium* 9.3 mg/dL (8.4-10.6); Carbon Dioxide* 28 mmol/L (20-32); Glucose* 127 mg/dL (60-115)
[2024-03-17] MEDS: PALONOSETRON 0.25 MG/5 ML inj IV (09:47)
[2024-03-17] MEDS: dexAMETHasone 20 MG in 0.9 % SODIUM CHLORIDE 100 ml 100 ML 408 MG IVPB (09:53)
[2024-03-17] MEDS: 5 % DEXTROSE 250 ML IV (11:30)
[2024-03-17] MEDS: LEUCOVORIN CALCIUM 100 MG, TUBING SECONDARY 1 EACH in 5 % DEXTROSE 250 ML 250 ML 127.5 MG IV (11:32)
--- NOTE | 2024-03-17 12:55 | ONC.NURNOTE ---
PSDS=0 No SS referral- patient states he has an abundance of support from family and friends
--- NOTE | 2024-03-17 12:56 | ONC.NURNOTE ---
teaching with and patient on FOLFOX chemotherapy included the following: treatment schedule, possible side effects, after hours care, ED if fever over 100.4, taking antiemetics at home, self care at home, binder reviewed, safe handling of body excretions,calling with N/V or any other unexpected side effects referrals offered to dietitian, Rehab- patient denies need at this time questions addressed JOS and consents reviewed and signed
[2024-03-17] MEDS: SODIUM CHLORIDE 0.9 % (FLUSH) 10 ML SYRINGE IVF (13:40)
--- NOTE | 2024-03-18 14:36 | PC.NURSE ---
Called pt today to check in. He is doing well with no side effects other than a little insomnia last evening. Nam has no concerns at this time. He will be in tomorrow for pump off. Support offered.
[2024-03-19 12:19] VITALS: BP 115/66; PULSE 66; RESP 17; TEMP 36.5; O2SAT 98
[2024-03-19] MEDS: SODIUM CHLORIDE 0.9 % (FLUSH) 10 ML SYRINGE IVF (14:51)
[2024-03-31 09:31] LABS: Basophils Absolute Auto 0.01 K/uL (0.00-0.30); Basophils Percent Auto 0.2 % (0.0-3.0); Eosinophils Absolute Auto 0.05 K/uL (0.00-0.50); Eosinophils Percent Auto 0.9 % (0.0-7.0); Hematocrit 40.6 % (37.0-53.0); Hemoglobin* 12.8 gm/dL (13.5-17.5); Immature Granulocytes Abs Auto 0.01 K/uL (0.00-0.30); Immature Granulocytes Pct Auto 0.2 %; Lymphocytes Percent Auto 13.7 % (20-44); Mean Corpuscular HGB Conc 32 gm/dL (32-36); Mean Corpuscular Hemoglobin 28 pg (26-34); Mean Corpuscular Volume 89 fL (80-100); Monocytes Percent Auto 12.4 % (0.0-11.0); Neutrophils Percent Auto 72.6 % (42.0-72.0); Platelet Count* 188 K/uL (140-440); RDW Coefficient of Variation % 15.4 % (11.5-15.5); Red Blood Count 4.58 m/uL (4.30-5.90)
[2024-03-31 09:33] LABS: Slide Review Reflex No
[2024-03-31 09:50] LABS: Albumin* 4.3 g/dL (3.3-5.0)
[2024-03-31 09:51] LABS: Chloride* 102 mmol/L (96-114); Sodium* 140 mmol/L (135-149)
[2024-03-31 09:53] LABS: Anion Gap 8 mEq/L (7-15); Aspartate Amino Transferase* 25 U/L (12-35); Bilirubin Total* 0.9 mg/dL (0.1-1.5); Carbon Dioxide* 30 mmol/L (20-32); Creatinine* 0.9 mg/dL (0.5-1.5); Est. Creatinine Clearance* 67.93; Estimated Glomerular Filt Rate 90 ml/min
[2024-03-31 09:54] LABS: Alanine Aminotransferase* 16 U/L (4-50); Alkaline Phosphatase* 68 U/L (40-150); Blood Urea Nitrogen* 11 mg/dL (7-30); Calcium* 9.4 mg/dL (8.4-10.6); Glucose* 99 mg/dL (60-115); Total Protein* 7.1 g/dL (6.0-8.3)
[2024-03-31] MEDS: dexAMETHasone 20 MG in 0.9 % SODIUM CHLORIDE 100 ml 100 ML 408 MG IVPB (10:28)
[2024-03-31] MEDS: PALONOSETRON 0.25 MG/5 ML inj IV (10:28)
[2024-03-31] MEDS: LEUCOVORIN CALCIUM 100 MG, TUBING SECONDARY 1 EACH in 5 % DEXTROSE 250 ML 250 ML 128 MG IV (11:10)
[2024-04-02] MEDS: SODIUM CHLORIDE 0.9 % (FLUSH) 10 ML SYRINGE IVF (12:33)
[2024-04-02] MEDS: HEPARIN 500 UNIT/5 ML SYRINGE IVF (12:33)
[2024-04-14 08:10] VITALS: BP 137/90; PULSE 68; RESP 16; TEMP 36.1; O2SAT 99
[2024-04-14 08:32] LABS: Basophils Percent Auto 0.6 % (0.0-3.0); Eosinophils Percent Auto 2.3 % (0.0-7.0); Hematocrit 38.4 % (37.0-53.0); Hemoglobin* 12.2 gm/dL (13.5-17.5); Immature Granulocytes Pct Auto 0.6 %; Lymphocytes Percent Auto 29.9 % (20-44); Mean Corpuscular HGB Conc 32 gm/dL (32-36); Mean Corpuscular Hemoglobin 28 pg (26-34); Mean Corpuscular Volume 89 fL (80-100); Monocytes Percent Auto 13.2 % (0.0-11.0); Neutrophils Percent Auto 53.4 % (42.0-72.0); Platelet Count* 192 K/uL (140-440); RDW Coefficient of Variation % 15.2 % (11.5-15.5); Red Blood Count 4.32 m/uL (4.30-5.90); White Blood Count* 3.55 K/uL (4.50-11.00)
[2024-04-14 08:35] LABS: Slide Review Reflex No
[2024-04-14] MEDS: ALTEPLASE 2 MG INJ IVF (08:48)
[2024-04-14 08:52] LABS: Chloride* 102 mmol/L (96-114); Potassium* 3.6 mmol/L (3.6-5.1); Sodium* 138 mmol/L (135-149)
[2024-04-14 08:54] LABS: Anion Gap 8 mEq/L (7-15); Aspartate Amino Transferase* 30 U/L (12-35); Bilirubin Total* 0.4 mg/dL (0.1-1.5); Carbon Dioxide* 28 mmol/L (20-32); Creatinine* 0.8 mg/dL (0.5-1.5); Est. Creatinine Clearance* 67.93; Estimated Glomerular Filt Rate 93 ml/min; Total Protein* 6.9 g/dL (6.0-8.3)
[2024-04-14 08:55] LABS: Alanine Aminotransferase* 20 U/L (4-50); Alkaline Phosphatase* 68 U/L (40-150); Blood Urea Nitrogen* 10 mg/dL (7-30); Calcium* 9.1 mg/dL (8.4-10.6); Glucose* 135 mg/dL (60-115)
[2024-04-14] MEDS: PALONOSETRON 0.25 MG/5 ML inj IV (09:26)
[2024-04-14] MEDS: SODIUM CHLORIDE 0.9 % (FLUSH) 10 ML SYRINGE IVF (09:26)
[2024-04-14] MEDS: 5 % DEXTROSE 250 ML IV (09:26)
[2024-04-14] MEDS: LEUCOVORIN CALCIUM 100 MG, TUBING SECONDARY 1 EACH in 5 % DEXTROSE 250 ML 250 ML 128 MG IV (09:48)
[2024-04-16 10:51] VITALS: BP 121/77; PULSE 75; RESP 16; TEMP 36.4; O2SAT 99
[2024-04-16] MEDS: SODIUM CHLORIDE 0.9 % (FLUSH) 10 ML SYRINGE IVF (10:56)
[2024-04-16] MEDS: HEPARIN 500 UNIT/5 ML SYRINGE IVF (10:56)
[2024-04-28] MEDS: SODIUM CHLORIDE 0.9 % (FLUSH) 10 ML SYRINGE IVF ×2 (08:03→09:24)
[2024-04-28 08:12] LABS: Basophils Percent Auto 0.5 % (0.0-3.0); Eosinophils Percent Auto 1.5 % (0.0-7.0); Hematocrit 41.8 % (37.0-53.0); Hemoglobin* 13.2 gm/dL (13.5-17.5); Mean Corpuscular HGB Conc 32 gm/dL (32-36); Mean Corpuscular Hemoglobin 28 pg (26-34); Mean Corpuscular Volume 88 fL (80-100); Platelet Count* 103 K/uL (140-440); RDW Coefficient of Variation % 16.3 % (11.5-15.5); Red Blood Count 4.75 m/uL (4.30-5.90); White Blood Count* 4.08 K/uL (4.50-11.00)
[2024-04-28 08:25] LABS: Slide Review Reflex No
[2024-04-28 08:29] LABS: Chloride* 102 mmol/L (96-114)
[2024-04-28 08:30] LABS: Potassium* 3.7 mmol/L (3.6-5.1); Sodium* 137 mmol/L (135-149)
[2024-04-28 08:32] LABS: Creatinine* 0.8 mg/dL (0.5-1.5); Est. Creatinine Clearance* 70.07; Estimated Glomerular Filt Rate 93 ml/min
[2024-04-28 08:33] LABS: Alanine Aminotransferase* 30 U/L (4-50); Alkaline Phosphatase* 75 U/L (40-150); Anion Gap 7 mEq/L (7-15); Aspartate Amino Transferase* 39 U/L (12-35); Bilirubin Total* 0.8 mg/dL (0.1-1.5); Blood Urea Nitrogen* 12 mg/dL (7-30); Calcium* 9.2 mg/dL (8.4-10.6); Carbon Dioxide* 28 mmol/L (20-32); Glucose* 119 mg/dL (60-115)
[2024-04-28] MEDS: PALONOSETRON 0.25 MG/5 ML inj IV (09:23)
[2024-04-28] MEDS: 5 % DEXTROSE 250 ML IV (09:24)
[2024-04-28] MEDS: LEUCOVORIN CALCIUM 100 MG, TUBING SECONDARY 1 EACH in 5 % DEXTROSE 250 ML 250 ML 127 MG IV (09:47)
[2024-04-28] MEDS: OXALIPLATIN 5 MG/ML INJ 115 MG, TUBING PRIMARY 1 EACH in 5 % DEXTROSE 250 ML 250 ML 136 MG IV (09:48)
[2024-04-30 11:44] VITALS: BP 104/3; PULSE 71; RESP 16; TEMP 36.3; O2SAT 97
[2024-05-12 09:14] VITALS: BP 115/76; PULSE 80; RESP 16; TEMP 36.4; O2SAT 100
[2024-05-12 09:37] LABS: Basophils Percent Auto 0.6 % (0.0-3.0); Eosinophils Percent Auto 2.1 % (0.0-7.0); Hematocrit 41.2 % (37.0-53.0); Hemoglobin* 13.2 gm/dL (13.5-17.5); Immature Granulocytes Pct Auto 0.3 %; Lymphocytes Percent Auto 22.3 % (20-44); Mean Corpuscular HGB Conc 32 gm/dL (32-36); Mean Corpuscular Hemoglobin 28 pg (26-34); Mean Corpuscular Volume 88 fL (80-100); Monocytes Percent Auto 16.8 % (0.0-11.0); Neutrophils Percent Auto 57.9 % (42.0-72.0); Platelet Count* 117 K/uL (140-440); Red Blood Count 4.66 m/uL (4.30-5.90); White Blood Count* 3.28 K/uL (4.50-11.00)
[2024-05-12 09:39] LABS: Slide Review Reflex No
[2024-05-12 09:58] LABS: Albumin* 3.9 g/dL (3.3-5.0); Chloride* 103 mmol/L (96-114); Potassium* 3.7 mmol/L (3.6-5.1); Sodium* 138 mmol/L (135-149)
[2024-05-12 10:00] LABS: Creatinine* 0.8 mg/dL (0.5-1.5); Est. Creatinine Clearance* 70.07; Estimated Glomerular Filt Rate 93 ml/min
[2024-05-12 10:01] LABS: Alanine Aminotransferase* 23 U/L (4-50); Alkaline Phosphatase* 72 U/L (40-150); Anion Gap 6 mEq/L (7-15); Aspartate Amino Transferase* 37 U/L (12-35); Bilirubin Total* 0.6 mg/dL (0.1-1.5); Blood Urea Nitrogen* 13 mg/dL (7-30); Carbon Dioxide* 29 mmol/L (20-32); Glucose* 111 mg/dL (60-115); Total Protein* 6.6 g/dL (6.0-8.3)
[2024-05-12 10:02] LABS: Calcium* 9.2 mg/dL (8.4-10.6)
[2024-05-12] MEDS: dexAMETHasone 20 MG in 0.9 % SODIUM CHLORIDE 100 ml 100 ML 408 MG IVPB (10:29)
[2024-05-12] MEDS: PALONOSETRON 0.25 MG/5 ML inj IV (10:29)
[2024-05-12] MEDS: SODIUM CHLORIDE 0.9 % (FLUSH) 10 ML SYRINGE IVF ×2 (10:30→12:55)
[2024-05-12] MEDS: 5 % DEXTROSE 250 ML IV (10:30)
[2024-05-12] MEDS: LEUCOVORIN CALCIUM 100 MG, TUBING SECONDARY 1 EACH in 5 % DEXTROSE 250 ML 250 ML 128 MG IV (10:53)
[2024-05-14] MEDS: HEPARIN 500 UNIT/5 ML SYRINGE IVF (11:51)
[2024-05-14] MEDS: SODIUM CHLORIDE 0.9 % (FLUSH) 10 ML SYRINGE IVF (11:52)
[2024-05-26 09:19] LABS: Basophils Percent Auto 0.4 % (0.0-3.0); Eosinophils Percent Auto 1.5 % (0.0-7.0); Hemoglobin* 12.9 gm/dL (13.5-17.5); Lymphocytes Percent Auto 30.6 % (20-44); Mean Corpuscular HGB Conc 32 gm/dL (32-36); Mean Corpuscular Hemoglobin 29 pg (26-34); Mean Corpuscular Volume 89 fL (80-100); Monocytes Percent Auto 18.8 % (0.0-11.0); Neutrophils Percent Auto 48.7 % (42.0-72.0); Platelet Count* 74 K/uL (140-440); RDW Coefficient of Variation % 17.3 % (11.5-15.5); Red Blood Count 4.51 m/uL (4.30-5.90); White Blood Count* 2.71 K/uL (4.50-11.00)
[2024-05-26 09:20] VITALS: BP 102/68; PULSE 73; RESP 16; TEMP 37.1; O2SAT 98
[2024-05-26 09:41] LABS: Albumin* 3.7 g/dL (3.3-5.0); Chloride* 106 mmol/L (96-114); Sodium* 139 mmol/L (135-149)
[2024-05-26 09:44] LABS: Alanine Aminotransferase* 24 U/L (4-50); Alkaline Phosphatase* 71 U/L (40-150); Anion Gap 5 mEq/L (7-15); Aspartate Amino Transferase* 38 U/L (12-35); Bilirubin Total* 0.4 mg/dL (0.1-1.5); Blood Urea Nitrogen* 8 mg/dL (7-30); Carbon Dioxide* 28 mmol/L (20-32); Creatinine* 0.8 mg/dL (0.5-1.5); Est. Creatinine Clearance* 70.07; Estimated Glomerular Filt Rate 93 ml/min; Glucose* 110 mg/dL (60-115); Total Protein* 6.3 g/dL (6.0-8.3)
[2024-05-26 09:45] LABS: Calcium* 9.2 mg/dL (8.4-10.6)
[2024-05-26 09:46] LABS: Slide Review Reflex No
--- NOTE | 2024-05-26 10:12 | PC.NURSE ---
Pt present at [facility] today for chemotherapy. Labs done. Platelets count below hold limit. ANC 1.3. Discussed with MD. Will hold x 1 week.
[2024-05-26] MEDS: SODIUM CHLORIDE 0.9 % (FLUSH) 10 ML SYRINGE IVF (10:23)
[2024-05-26] MEDS: HEPARIN 500 UNIT/5 ML SYRINGE IVF (10:23)
[2024-06-02 09:11] VITALS: BP 129/82; PULSE 72; RESP 16; TEMP 35.2; O2SAT 97
[2024-06-02] MEDS: SODIUM CHLORIDE 0.9 % (FLUSH) 10 ML SYRINGE IVF (09:15)
[2024-06-02 09:37] LABS: Basophils Percent Auto 0.8 % (0.0-3.0); Eosinophils Percent Auto 3.4 % (0.0-7.0); Hemoglobin* 13.7 gm/dL (13.5-17.5); Lymphocytes Percent Auto 34.1 % (20-44); Mean Corpuscular HGB Conc 32 gm/dL (32-36); Mean Corpuscular Hemoglobin 29 pg (26-34); Mean Corpuscular Volume 90 fL (80-100); Monocytes Percent Auto 18.6 % (0.0-11.0); Neutrophils Percent Auto 43.1 % (42.0-72.0); Platelet Count* 131 K/uL (140-440); RDW Coefficient of Variation % 17.7 % (11.5-15.5); White Blood Count* 2.64 K/uL (4.50-11.00)
[2024-06-02 10:04] LABS: Slide Review Reflex No
[2024-06-02 10:40] LABS: Albumin* 3.8 g/dL (3.3-5.0); Chloride* 107 mmol/L (96-114); Potassium* 3.9 mmol/L (3.6-5.1); Sodium* 139 mmol/L (135-149)
[2024-06-02 10:43] LABS: Alanine Aminotransferase* 28 U/L (4-50); Alkaline Phosphatase* 72 U/L (40-150); Anion Gap 5 mEq/L (7-15); Aspartate Amino Transferase* 45 U/L (12-35); Bilirubin Total* 0.6 mg/dL (0.1-1.5); Calcium* 9.4 mg/dL (8.4-10.6); Carbon Dioxide* 27 mmol/L (20-32); Creatinine* 0.9 mg/dL (0.5-1.5); Est. Creatinine Clearance* 70.07; Estimated Glomerular Filt Rate 90 ml/min; Glucose* 147 mg/dL (60-115); Total Protein* 6.7 g/dL (6.0-8.3)
[2024-06-02 10:59] LABS: Blood Urea Nitrogen* 11 mg/dL (7-30)
[2024-06-02] MEDS: 5 % DEXTROSE 250 ML IV (11:14)
[2024-06-02] MEDS: PALONOSETRON 0.25 MG/5 ML inj IV (11:15)
[2024-06-02] MEDS: dexAMETHasone 20 MG in 0.9 % SODIUM CHLORIDE 100 ml 100 ML 408 MG IVPB (11:16)
[2024-06-02] MEDS: OXALIPLATIN 5 MG/ML INJ 115 MG, TUBING PRIMARY 1 EACH in 5 % DEXTROSE 250 ML 250 ML 136 MG IV (11:53)
[2024-06-02] MEDS: LEUCOVORIN CALCIUM 100 MG, TUBING SECONDARY 1 EACH in 5 % DEXTROSE 250 ML 250 ML 127 MG IV (11:57)
[2024-06-04 12:49] VITALS: BP 116/71; PULSE 71; RESP 16; TEMP 36.6; O2SAT 93
[2024-06-04] MEDS: SODIUM CHLORIDE 0.9 % (FLUSH) 10 ML SYRINGE IVF (12:57)
[2024-06-04] MEDS: HEPARIN 500 UNIT/5 ML SYRINGE IVF (12:57)
[2024-06-07] MEDS: SODIUM CHLORIDE 0.9 % (FLUSH) 10 ML SYRINGE IVF ×2 (08:45→10:40)
[2024-06-07] MEDS: HEPARIN 500 UNIT/5 ML SYRINGE IVF (10:40)
[2024-06-22 08:10] VITALS: BP 128/84; PULSE 67; RESP 16; TEMP 36.4; O2SAT 97
[2024-06-22 08:37] LABS: Basophils Percent Auto 0.8 % (0.0-3.0); Eosinophils Percent Auto 3.1 % (0.0-7.0); Hematocrit 41.8 % (37.0-53.0); Hemoglobin* 13.4 gm/dL (13.5-17.5); Lymphocytes Percent Auto 37.5 % (20-44); Mean Corpuscular HGB Conc 32 gm/dL (32-36); Mean Corpuscular Hemoglobin 29 pg (26-34); Mean Corpuscular Volume 90 fL (80-100); Monocytes Percent Auto 23.8 % (0.0-11.0); Neutrophils Percent Auto 34.8 % (42.0-72.0); Platelet Count* 127 K/uL (140-440); RDW Coefficient of Variation % 17.4 % (11.5-15.5); Red Blood Count 4.67 m/uL (4.30-5.90); White Blood Count* 2.56 K/uL (4.50-11.00)
[2024-06-22 08:39] LABS: Slide Review Reflex No
[2024-06-22 08:48] LABS: Potassium* 3.8 mmol/L (3.6-5.1)
[2024-06-22 08:50] LABS: Creatinine* 0.8 mg/dL (0.5-1.5); Est. Creatinine Clearance* 70.07; Estimated Glomerular Filt Rate 93 ml/min
[2024-06-22 08:51] LABS: Alanine Aminotransferase* 21 U/L (4-50); Alkaline Phosphatase* 80 U/L (40-150); Aspartate Amino Transferase* 34 U/L (12-35); Bilirubin Total* 0.7 mg/dL (0.1-1.5); Blood Urea Nitrogen* 10 mg/dL (7-30); Carbon Dioxide* 29 mmol/L (20-32); Glucose* 85 mg/dL (60-115); Total Protein* 6.4 g/dL (6.0-8.3)
[2024-06-22 08:52] LABS: Calcium* 8.8 mg/dL (8.4-10.6)
[2024-06-22 09:14] LABS: Albumin* 3.8 g/dL (3.3-5.0); Anion Gap 4 mEq/L (7-15); Chloride* 106 mmol/L (96-114); Sodium* 139 mmol/L (135-149)
[2024-06-22] MEDS: SODIUM CHLORIDE 0.9 % (FLUSH) 10 ML SYRINGE IVF (09:36)
[2024-06-22] MEDS: 0.9 % SODIUM CHLORIDE 500 ML IV (09:40)
[2024-06-22] MEDS: dexAMETHasone 4 MG/ML VIAL 8 MG IVP (09:44)
[2024-06-22] MEDS: LEUCOVORIN CALCIUM 100 MG, TUBING SECONDARY 1 EACH in 5 % DEXTROSE 250 ML 250 ML 510 MG IV (09:49)
--- OUTSIDE RECORDS SUMMARY | 2024-06-24 07:04 | XMS_ITS | Clinical Summary ---
Author Organization [employer] [facility] Address [place], [place] [address] Care Team Providers Care Clerical Transcriber Name Role Phone Raymond Hurst MD Primary Care Provider [phone] Allergies Active Allergy Reactions Criticality Noted Date Comments Atorvastatin Myalgia 01/06/2008 Joint pain so bad he couldn't walk up stairs... Tolerate 6-8 months and then the symptoms start Simvastatin Myalgia 01/06/2008 Medications rosuvastatin (CRESTOR) 10 mg tabletIndications:O ther hyperlipidemia Take 1 tablet every other evening. 45 Tablet 3 4 Active lisinopriL (PRINIVIL; ZESTRIL) 20 mg tabletIndications:E ssential hypertension Take 0.5 Tablets (10 mg) by mouth once daily. 4 Active benzonatate (TESSALON) 100 mg capsuleIndications: Acute cough Take 1 Capsule (100 mg) by mouth 3 times daily if needed for Cough. 30 Capsule 1 4 Active Active Problems Problem Noted Date Diagnosed Date Other hyperlipidemia 08/10/2018 Prostate cancer 09/05/2011 Unspecified essential hypertension Resolved Problems Problem Noted Date Diagnosed Date Resolved Date Other and unspecified hyperlipidemia 08/10/2018 Elevated prostate specific antigen (PSA) 01/06/2008 Encounters Date Type Department Care Team Description 06/07/[address] [facility] Scanner 1 scan: (1-Ord) HAYES, CHEST ABDOMEN PELVIS W/CONTRAST, 06/07/2024 05/10/2024 Transcribe Orders [facility] [address] [place] [address] Tamar Barnett MD 04/13/2024 11:15 AM CDT Office Visit [facility] [address] [place] [address] Raymond Hurst MD Cough (Ongoing cough - getting better) 04/13/2024 Travel 03/31/[address] [facility] Scanner 1 scan: (1-Ord) HAYES, [facility] RESULTS, 03/31/2024 from Last 3 Months Immunizations Name Administration Dates Next Due COVID-19 vaccine ([employer] 30mcg/0.3mL) P FABIAN [facility] 08/12/2020 Td (Age >=7 Years) 09/12/2000 Tdap 01/28/2011 Family History Medical History Relation Name Comments Cancer-prostate Father Heart Disease Father of [place] at 79; first [place] at 71 Cancer Mother breast at 42 of complications Other Sister 1 Kayla Fibromyalgia Cancer-breast Sister 2 Kaia Cancer-breast Sister 3 Penny x2; of br east cancer at 61 in 2020 Anesthesia Problem No Family History Blood Disease No Family History Relation Name Status Comments Father (Age 79) Mother (Age 42) Sister 1 Kayla Alive Sister 2 Kaia Alive Sister 3 Penny (Age 61) Sister 4 Samanta Alive Social History Tobacco Use Types Packs/Day Years Used Date Smoking Tobacco: Never Smokeless Tobacco: Never Tobacco Cessation:Counseling Given: Yes Alcohol Use Standard Drinks/Week Comments No 0 (1 standard drink = 0.6 oz pur e alcohol) Quit [address] [facility] Utilities Answer Date Recorded Do you have trouble paying f or utilities (for example, heat, electricity, water, phone)? Yes 11/14/2023 PHQ-2 Answer Date Recorded PHQ-2 TOTAL SCORE 0 11/14/2023 Social Connections Answer Date Recorded Do you often feel lonely or isolated from those around you? 0 11/14/2023 Financial Resource Strain Answer Date R ecorded Difficulty of Paying Living Expenses 3 11/14/2023 Difficulty of Paying Living Expenses Not on file 11/14/2023 Food Insecurity Answer Date Recorded Do you worry your food will run out before you are able to buy more? 1 11/14/2023 Transportation Needs Answer Date Record ed Does lack of transportation keep you from medica l appointments? 1 11/14/2023 Does lack of transportation keep you from work, meetings or getting things that you need? 1 11/14/2023 Housing Stability Answer Date Recorded What is your housing situation today? 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 Not on file Not on file Not on file Obstetrics History Last Filed Vital Signs Vital Sign Reading Time Taken Comments Blood Pressure 121/77 04/13/2024 11:23 AM CDT Pulse 71 04/13/2024 11:23 AM CDT Temperature 36.7 C (98.1 F) 04/13/2024 11:23 AM CDT Respiratory Rate 20 09/08/2011 8:00 AM CDT Oxygen Saturation 96% 04/13/2024 11:23 AM CDT Inhaled Oxygen Concentration - - Weight 103 kg (227 lb 1.6 oz) 04/13/2024 11:23 A M CDT Height 180.3 cm (5' 11) 02/27/2024 11:25 AM CDT Body Mass Index 31.67 02/27/2024 11:25 AM CDT Plan of Treatment Upcoming Encounters Date Type Department Care Team (Late st Contact Info) Description 08/04/2024 9:00 AM SHOE CASER Office Visit [facility] [address] [place] [address] Mindy Sharma, MS, [facility] [address] [place] [address] Health Maintenance Due Date Last Done Comments Pneumococcal series for age 50+ (1 of 2 - PCV) 1970 Zoster (shingles) series for age 50+ (1 of 2) 1970 Colonoscopy through age 75 1996 RSV vaccine for adults or (1 - Risk 60-74 years 1-dose series) 2011 Tetanus booster 01/28/2021 01/28/2011, 09/12/2000 COVID-19 vaccine series ( season) 2024 06/25/2022, 03/27/2021, 09/02/2020, Additional history exists Influenza for age 65+ 02/22/2024 Depression screening for age 12+ 11/13/2024 11/14/2023, 09/13/2022, 09/07/2021, Additional history exists Medicare Wellness for age 65+ 11/14/2024, 09/13/2022, 09/07/2021, Additional history exists BMI (ht and wt on same day) for age 18+ 02/26/2025 02/27/2024, 11/14/2023, 09/13/2022, Additional history exists Lipids for age 45-75 11/13/2028 11/14/2023, 09/13/2022, 09/07/2021, Additional history exists Tdap Completed 01/28/2011 Hepatitis C screening for ag e 18-79 Completed 09/07/2021 Procedures Procedure Name Priority Date/Time Associated Diagnosis Comments SCAN-CT INTERPRETATION 12:00 AM SHOE CASER SCAN-LABORATORY REPORT 12:00 AM CDT LIPID PANEL W REFLEX MEASURED LDL Routine 11/14/2023 9:54 AM CDT Other hyperlipidemia ANTI HCV Routine 09/07/2021 9:48 AM CDT Need for hepatitis C screening test from Last 3 Months or Most Recently Relevant to Health Maintenance Results * SCAN-CT INTERPRETATION (06/07/2024 12:00 AM SHOE CASER) Anatomical Region Laterality Modality Other us Scanner OTHER Final Result * SCAN-LABORATORY REPORT (03/31/2024 12:00 AM CDT) us Scanner OTHER Final Result * (ABNORMAL) LIPID PANEL W REFLEX MEASURED LDL (11/14/2023 9:54 AM CDT) CHOLESTEROL,TOTAL 175 100 - 199 mg/dL 11/14/2023 5:55 PM CDT [facility] Comment: Cholesterol, Total Reference Ranges Desirable <200 mg/dL Borderline 200-239 mg/dL High >=240 mg/dL TRIGLYCERIDES 139 <150 mg/dL 11/14/2023 5:55 PM CDT [facility] HDL CHOLESTEROL 38(L) >40 mg/dL 5:55 PM CDT [facility] NON-HDL CHOLESTEROL 137 <145 mg/dl 11/14/2023 5:55 PM CDT [facility] CHOL/HDL RATIO 4.61(H) <4.50 11/14/2023 5:55 PM CDT [facility] LDL CHOLESTEROL 109 <=130 mg/dL 11/14/2023 5:55 PM CDT [facility] VLDL CHOLESTEROL 28 <=30 mg/dL 11/14/2023 5:55 PM CDT [facility] PROVIDER ORDERED STATUS RANDOM 11/14/2023 5:55 PM CDT [facility] Blood BLOOD SPECIMEN / Unknown Venipuncture / Unknown 11/14/2023 9:54 AM CDT 11/14/2023 9:54 AM CDT us Raymond Hurst MD CHEMISTRY Final Resu lt [facility] [address] [place] [id number], * ANTI HCV (09/07/2021 9:48 AM CDT) Pathologist [facility] HEPATITIS C ANTIBODY Non-React kyra Non-React kyar 09/07/2021 9:03 PM CDT [facility] Comment:Antibodies to HCV no t detected; does not exclude the possibility of exposure to HCV. Blood BLOOD SPECIMEN / Unknown Venipuncture / Unknown 09/07/2021 9:48 AM CDT 09/07/2021 9:48 AM CDT us Raymond Hurst MD SEND OUTS Final Resu lt [facility] [address] [place] [address], from Last 3 Months or Most Recently Relevant to Health Maintenance Insurance [employer]UE [employer] [place] BLUE [employer] [place] ONLY Advance Directives Documents on File Type Date Recorded Patient Gallery Host Expl anation Healthcare Directive 03/17/2024 3:04 PM Care Teams Clerical Transcriber Relationship Specialty Start Date End Date Raymond Hurst MD [address] [place] [address] PCP - General 12/22/07
[2024-06-24 09:29] VITALS: BP 131/86; PULSE 70; RESP 16; TEMP 36.4; O2SAT 97
[2024-06-24] MEDS: HEPARIN 500 UNIT/5 ML SYRINGE IVF (09:50)
[2024-06-24] MEDS: SODIUM CHLORIDE 0.9 % (FLUSH) 10 ML SYRINGE IVF (09:50)
[2024-07-06 10:44] LABS: Basophils Percent Auto 0.3 % (0.0-3.0); Eosinophils Percent Auto 1.9 % (0.0-7.0); Hematocrit 44.9 % (37.0-53.0); Hemoglobin* 14.4 gm/dL (13.5-17.5); Lymphocytes Percent Auto 27.9 % (20-44); Mean Corpuscular HGB Conc 32 gm/dL (32-36); Mean Corpuscular Hemoglobin 29 pg (26-34); Mean Corpuscular Volume 90 fL (80-100); Monocytes Percent Auto 13.4 % (0.0-11.0); Neutrophils Percent Auto 56.5 % (42.0-72.0); Platelet Count* 113 K/uL (140-440); White Blood Count* 3.66 K/uL (4.50-11.00)
[2024-07-06 10:46] LABS: Slide Review Reflex No
[2024-07-06 10:56] LABS: Albumin* 4.1 g/dL (3.3-5.0); Chloride* 105 mmol/L (96-114)
[2024-07-06 10:57] LABS: Potassium* 4.1 mmol/L (3.6-5.1); Sodium* 138 mmol/L (135-149)
[2024-07-06 10:59] LABS: Anion Gap 3 mEq/L (7-15); Aspartate Amino Transferase* 30 U/L (12-35); Bilirubin Total* 1.2 mg/dL (0.1-1.5); Carbon Dioxide* 30 mmol/L (20-32); Creatinine* 0.9 mg/dL (0.5-1.5); Est. Creatinine Clearance* 70.07; Estimated Glomerular Filt Rate 90 ml/min
[2024-07-06 11:00] LABS: Alanine Aminotransferase* 21 U/L (4-50); Alkaline Phosphatase* 78 U/L (40-150); Blood Urea Nitrogen* 12 mg/dL (7-30); Glucose* 92 mg/dL (60-115)
[2024-07-06] MEDS: dexAMETHasone 10 MG/ML inj 8 MG IVP (12:07)
[2024-07-06] MEDS: SODIUM CHLORIDE 0.9 % (FLUSH) 10 ML SYRINGE IVF (12:11)
[2024-07-06] MEDS: 0.9 % SODIUM CHLORIDE 500 ML IV (12:11)
[2024-07-06] MEDS: LEUCOVORIN CALCIUM 100 MG, TUBING SECONDARY 1 EACH in 5 % DEXTROSE 250 ML 250 ML 530 MG IV (12:16)
[2024-07-08 11:41] VITALS: BP 119/77; PULSE 71; RESP 16; TEMP 36.4; O2SAT 99
[2024-07-08] MEDS: SODIUM CHLORIDE 0.9 % (FLUSH) 10 ML SYRINGE IVF (11:41)
[2024-07-08] MEDS: HEPARIN 500 UNIT/5 ML SYRINGE IVF (11:41)
[2024-07-20] MEDS: SODIUM CHLORIDE 0.9 % (FLUSH) 10 ML SYRINGE IVF ×2 (08:55→11:10)
[2024-07-20 09:08] LABS: Basophils Percent Auto 0.5 % (0.0-3.0); Eosinophils Percent Auto 2.3 % (0.0-7.0); Hematocrit 41.3 % (37.0-53.0); Hemoglobin* 13.5 gm/dL (13.5-17.5); Immature Granulocytes Pct Auto 0.3 %; Lymphocytes Percent Auto 27.9 % (20-44); Mean Corpuscular HGB Conc 33 gm/dL (32-36); Mean Corpuscular Hemoglobin 30 pg (26-34); Mean Corpuscular Volume 90 fL (80-100); Monocytes Percent Auto 13.6 % (0.0-11.0); Neutrophils Percent Auto 55.4 % (42.0-72.0); Platelet Count* 108 K/uL (140-440); RDW Coefficient of Variation % 16.9 % (11.5-15.5); Red Blood Count 4.57 m/uL (4.30-5.90); White Blood Count* 3.83 K/uL (4.50-11.00)
[2024-07-20 09:12] LABS: Slide Review Reflex No
[2024-07-20 09:22] LABS: Albumin* 3.8 g/dL (3.3-5.0); Chloride* 107 mmol/L (96-114)
[2024-07-20 09:23] LABS: Potassium* 3.9 mmol/L (3.6-5.1); Sodium* 139 mmol/L (135-149)
[2024-07-20 09:25] LABS: Alkaline Phosphatase* 86 U/L (40-150); Anion Gap 6 mEq/L (7-15); Aspartate Amino Transferase* 23 U/L (12-35); Bilirubin Total* 0.7 mg/dL (0.1-1.5); Blood Urea Nitrogen* 15 mg/dL (7-30); Carbon Dioxide* 26 mmol/L (20-32); Creatinine* 0.8 mg/dL (0.5-1.5); Est. Creatinine Clearance* 72.21; Estimated Glomerular Filt Rate 93 ml/min; Total Protein* 6.6 g/dL (6.0-8.3)
[2024-07-20 09:26] LABS: Alanine Aminotransferase* 16 U/L (4-50); Calcium* 8.9 mg/dL (8.4-10.6); Glucose* 111 mg/dL (60-115)
[2024-07-20] MEDS: 0.9 % SODIUM CHLORIDE 500 ML IV (10:02)
[2024-07-20] MEDS: dexAMETHasone 10 MG/ML inj 8 MG IVP (10:03)
[2024-07-20] MEDS: LEUCOVORIN CALCIUM 100 MG, TUBING SECONDARY 1 EACH in 5 % DEXTROSE 250 ML 250 ML 510 MG IV (10:27)
[2024-07-22] MEDS: HEPARIN 500 UNIT/5 ML SYRINGE IVF (10:07)
[2024-07-22] MEDS: SODIUM CHLORIDE 0.9 % (FLUSH) 10 ML SYRINGE IVF (10:07)
== END 2024-08-23 23:59 | disposition home or self-care (01) ==
LOC: CCIC 10:00
PROVIDERS: Clinical Nurse Specialist; PCP Family Medicine; Referring Provider Family Medicine; Visit Provider Internal Medicine Hematology & Oncology
DX: C18.9 Malignant neoplasm of colon, unspecified (principal); Z93.3 Colostomy status
CPT/HCPCS: 36415; 36591; 80053; 85025; 96365; 96367; 96368; 96375; 96376; 96413; 96415; 96416; 99202; 99205; 99211; 99214; 99215; G0463; J0640; J1100; J1642; J2469; J2997; J7030; J7050; J9190; J9263

== ENCOUNTER 2024-08-30 06:32 | Outpatient (CLI) | payer MEDICARE, BC, SELFPAY ==
--- NOTE | 2024-08-30 08:08 | W.ANESCHARGE ---
Anesthesia Charges Start Date/Time Anesthesia Start Date: 08/30/24 Anesthesia Start Time: 07:30 Stop Date/Time Anesthesia Stop Date: 08/30/24 Anesthesia Stop Time: 08:05 Summary Extremes of Age - Over 70 or under 1: FISHER QUAHOG Coding CPT Codes CPT Codes: ABHI LWR INTST NDSC NOS - 17901 ([id number]) P2 - PATIENT W/MILD SYST DISEASE, QX - FISHER QUAHOG SVC W/ MD MED DIRECTION, QK - FOOD ASSEMBLER 2-4 CNCRNT ANES PROC Additional Codes: Summary - Extremes of Age - Over 70 or under 1: FISHER QUAHOG ([id number])
--- NOTE | 2024-08-30 08:31 | W.ANESCHARGE ---
Anesthesia Charges Start Date/Time Anesthesia Start Date: 08/30/24 Anesthesia Start Time: 07:30 Stop Date/Time Anesthesia Stop Date: 08/30/24 Anesthesia Stop Time: 08:05 Summary Extremes of Age - Over 70 or under 1: MDA Coding CPT Codes CPT Codes: ANES LWR INTST NDSC NOS - 33390 ([id number]) P2 - PATIENT W/MILD SYST DISEASE, QK - WORLD DESIGNER 2-4 CNCRNT ANES PROC, QX - NATIONAL INVESTIGATIVE PRODUCER SVC W/ MD MED DIRECTION Additional Codes: Summary - Extremes of Age - Over 70 or under 1: BLANK ([id number])
== END 2024-08-30 06:33 | disposition home or self-care (01) ==
LOC: OP CLINIC 06:34
PROVIDERS: PCP Family Medicine; Visit Provider Surgery
DX: Z85.038 Personal history of other malignant neoplasm of large intestine (principal); D12.0 Benign neoplasm of cecum; D12.2 Benign neoplasm of ascending colon; D12.3 Benign neoplasm of transverse colon; D12.5 Benign neoplasm of sigmoid colon; Z01.818 Encounter for other preprocedural examination; Z90.49 Acquired absence of other specified parts of digestive tract; Z93.3 Colostomy status
CPT/HCPCS: 00811; 44394; 45330; 99100; J2704

== ENCOUNTER 2024-08-31 08:04 | Inpatient (IN) | payer MEDICARE, BC, SELFPAY ==
[2024-08-31] VITALS (21 sets, daily range): BP systolic 99–131; BP diastolic 52–83; PULSE 67–95; RESP 12–18; TEMP 36.3–37.3; O2SAT 91–98; BMI 33.8
[2024-08-31] MEDS: LACTATED RINGERS 1000 ML 1,000 ML 100 ML IV ×2 (09:20→13:00)
[2024-08-31] MEDS: SODIUM CHLORIDE 0.9 % (FLUSH) 10 ML SYRINGE IVF (09:20)
[2024-08-31] MEDS: ERTAPENEM 1 GM inj IVPB (09:30)
--- NOTE | 2024-08-31 10:04 | W.ANESCHARGE ---
Anesthesia Charges Start Date/Time Anesthesia Start Date: 08/31/24 Anesthesia Start Time: 09:20 Stop Date/Time Anesthesia Stop Date: 08/31/24 Anesthesia Stop Time: 13:17 Summary Extremes of Age - Over 70 or under 1: MDA Coding CPT Codes CPT Codes: ANESTH SURG UPPER ABDOMEN - 41651 ([id number]) P2 - PATIENT W/MILD SYST DISEASE, QK - MORTGAGE MANAGER 2-4 CNCRNT ANES PROC, QX - CELL TUBER MACHINE SVC W/ MD MED DIRECTION Additional Codes: Summary - Extremes of Age - Over 70 or under 1: MDA ([id number])
--- NOTE | 2024-08-31 10:05 | W.PM.NB ---
Nerve Block Nerve Block Time Seen by Provider: 09:30 Date Seen: 08/31/24 Type of block requested by surgeon for post-operative analgesia: TAP Side: bilateral Time out performed: Yes Verification of patient name: Yes Verification of date of : Yes Site marking: site marked Name of person performing procedure: Jonathan Continuous monitoring Was continuous monitoring of O2 sat, B/P, alarm security or surveillance monitor, recorded every 15 minutes?: Yes Procedure Checklist: sterile prep, needles and gloves Ultrasound guided. Images saved: Yes Medications given in 5ml increments after negative aspiration: Marcaine %: 0.25 mL: 30 Needle gauge: 20 and Exparel mL: 10 Patient tolerated procedure well: Yes Additional comments: Needle noted between internal oblique and transversus abdominus. Local spread visualized Block Charges Block Charge (with Pro Fee): TAP Bilateral Use of Ultrasound Machine for Block: Yes- US Guidance/pain block
[2024-08-31] MEDS: BUPIVACAINE 0.25% 30 ML INJECTION (13:01)
[2024-08-31] MEDS: LIDOCAINE 1%-EPI 1:100,000 20 ML INFILTRATI (13:01)
--- NOTE | 2024-08-31 13:11 | PM.GSPRC ---
Operative Note Date of procedure: 08/31/24 Pre-op diagnosis: 1. S/p descending colectomy with transverse colostomy and sigmoid mucous fistula. Post-op diagnosis: Same Type of Procedure: 1. Colostomy takedown. 2. Lysis of adhesions. Indications: 74-year-old male underwent open descending colectomy with transverse colostomy and mucous fistula in January of 2024 for stage IIIB adenocarcinoma of the colon. Patient underwent adjuvant chemotherapy. He presented to clinic to discuss colostomy takedown. Patient's colostomy worked well with no skin irritation. He usually had 1-2 stools from the stoma per day. He tolerated regular diet. Patient underwent colonoscopy yesterday with removal of 4 small polyps. He had extensive diverticulosis. Given patient's clinical history and his desire for bowel continuity, colostomy takedown was recommended. The procedure was discussed in detail. The risks associated procedure including infection, bleeding, the need for additional procedures, and injury to intra-abdominal organs were discussed with the patient, and he agreed to proceed. Procedure Description: After discussing the risks and benefits of the procedure, the patient signed informed consent.? The operative site was marked and the patient was brought to the operating room and placed on the operating table in supine position.? Care was taken to pad the patient's pressure points.?? The patient was then intubated by anesthesia.??Peck catheter was placed under sterile conditions. The operative site was then prepped and draped in the usual sterile fashion.? A time-out was then performed. The colostomy opening was closed with Vicryl suture prior to prepping the abdomen. This colostomy mucosa was now grasped with North Pitcher clamp. An oval incision was made around the colostomy mucous fistula with cautery. Subcutaneous fat was divided with cautery circumferentially mobilizing colostomy and mucous fistula of subcutaneous fat, rectus muscle, and anterior fascia. Adhesions were extensive attaching the colon and colonic mesentery to peritoneum and to the omentum. This made the surgery difficult. We had at least 2 hours of lysis of adhesions. The sigmoid colon was well visualized from the mucous fistula down into the abdomen. Medially, omentum was attached to the abdominal wall and adhesions were lysed only well enough to allow for tension-free anastomosis. Transverse colostomy was mobilized off the left upper quadrant abdominal wall and of the omentum with cautery. Hemostasis was achieved with cautery and Vicryl stick ties throughout the case. Howard retractor was placed into the incision. When the transverse colon and sigmoid colon were free and mobile, I proceeded with end-to-end hand-sewn anastomosis. The sigmoid colon and transverse colon were from each other by lysing adhesions between colonic mesentery with cautery. The mucous fistula end of the sigmoid colon was caught off with scissors creating a new full-thickness edge. Approximately 0.5 cm of full-thickness sigmoid colon was removed. Bleeding was controlled with cautery. The open edge of the sigmoid colon was grasped with [place] Pitcher clamps. Similarly, the closed edge of the transverse colon was then cut off with scissors to create a new full-thickness edge. Approximately 0.5 cm of this old colostomy edge was cut off and removed. Both removed edges were sent to pathology as ostomy. The transverse colon open end was grasped with North Pitcher clamps as well. Hemostasis was achieved with Vicryl ties and with cautery. Both ends of the colon were aligned with mesentery not twisted. The end-to-end hand-sewn anastomosis was then created by first suturing the back wall of the colonic serosa with interrupted 3-0 silk Lembert sutures. The mucosa was then circumferentially closed with 2 running 3-0 Vicryl sutures. The front wall of the anastomosis was then closed with interrupted Lembert sutures as well using 3-0 silk suture. The anastomosis was well perfused and was patent. The anastomosis was then placed into the abdomen. All dirty instruments were removed and surgeon and assistants changed gloves. The Howard retractor was removed. Surgical field was examined, and no bleeding was seen in the abdomen or in the incision. The peritoneum was then closed with 2 running 0-0 Vicryl sutures. Anterior fascia was mobilized off the rectus muscle to allow tension-free closure. The anterior fascia was then closed with 2 running 0-0 Maxon sutures. The colostomy incision was irrigated with normal saline. Local anesthetic was injected the surgical site. Subcutaneous fat was reapproximated with interrupted Vicryl sutures medially and laterally to decrease the volume of the open wound. The skin of the colostomy incision was then stapled medially and laterally and at least half of the incision was left open. This colostomy incision was then packed with moist gauze, covered with sterile dressings and secured with tape. All counts were correct at the end of the case. ? The patient was then woken and transported to the recovery area in stable condition. ? The patient tolerated the procedure well. Findings: Extensive adhesions were noted in the abdominal cavity. End-to-end hand-sewn anastomosis was created. Anesthesia: GETA Surgeon: Mercedes Bolton MD Estimated blood loss (mL): 20 Additional Specimen Information: 1. Colostomy. Condition: stable Disposition: PACU
--- NOTE | 2024-08-31 13:17 | W.ANESCHARGE ---
Anesthesia Charges Start Date/Time Anesthesia Start Date: 08/31/24 Anesthesia Start Time: 09:20 Stop Date/Time Anesthesia Stop Date: 08/31/24 Anesthesia Stop Time: 13:17 Summary Extremes of Age - Over 70 or under 1: NETWORK SUPPORT ANALYST Coding CPT Codes CPT Codes: ANESTH SURG UPPER ABDOMEN - 44597 ([id number]) P2 - PATIENT W/MILD SYST DISEASE, QK - MAIL PROCESSING ASSOCIATE 2-4 CNCRNT ANES PROC, QX - NETWORK SUPPORT ANALYST SVC W/ MD MED DIRECTION Additional Codes: Summary - Extremes of Age - Over 70 or under 1: NETWORK SUPPORT ANALYST ([id number])
--- NOTE | 2024-08-31 13:22 | SUR.OPER ---
400CC OF URINE OUT
[2024-08-31] MEDS: HYDROmorphone 0.5 mg/0.5 ml inj IVP (14:23)
[2024-08-31] MEDS: ACETAMINOPHEN 325 MG TABLET 650 MG PO (17:12)
--- NOTE | 2024-08-31 19:22 | PC.NURSE ---
Nursing Care Hours: [id number] pt arrived to floor alert and oriented. 6 hour post op recovery without complications. VSS, dressing CDI, BS hypoactive, denies nausea. Up to chair with SBA tolerated well. Pain treated per eMAR. Pain rated low at 1-2/10 with increased pain with coughing. Educated on how to splint with pillow to clear secretions. Using IS. Walked in max SBA well and has approval to walk independent. 2 walks total in max. Encouraged to slow down on oral intake of clears. Continue IV fluid infusions.
[2024-08-31] MEDS: LACTATED RINGERS 1000 ML 1,000 ML 75 ML IV (19:47)
[2024-08-31] MEDS: HYDROCODONE-ACETAMIN 5-325 MG 1 TAB PO (21:46)
[2024-09-01 03:00] VITALS: BP 114/65; PULSE 76; RESP 18; TEMP 37; O2SAT 99
--- NOTE | 2024-09-01 05:43 | PC.NURSE ---
End of shift report [id number]: Pleasant and cooperative with cares. Pain to abdomen well managed with current regimen. Ice pack applied to opsite. Dressing to left upper quadrant clean, dry and intact. Bowel sounds active to upper quadrants and right lower quadrant, left lower quadrant bowel sounds are hypoactive. Patient denies passing any flatus or bowel movement this shift. Denies any nausea or vomiting. Ambulated in hallway x 3 prior to going to bed, patient is able to walk throughout all hallways on the unit.
[2024-09-01] MEDS: HYDROCODONE-ACETAMIN 5-325 MG 1 TAB PO (06:42)
[2024-09-01] MEDS: ACETAMINOPHEN 325 MG TABLET 650 MG PO ×2 (06:42→15:49)
[2024-09-01 07:00] VITALS: BP 127/69; PULSE 74; RESP 18; TEMP 36.5; O2SAT 98
[2024-09-01] MEDS: LACTATED RINGERS 1000 ML 1,000 ML 75 ML IV (07:36)
[2024-09-01 11:00] VITALS: BP 139/91; PULSE 81; RESP 20; TEMP 36.6; O2SAT 97
--- NOTE | 2024-09-01 12:55 | PM.GSPN ---
Subjective Subjective Date Seen: 09/01/24 Interval history: Patient is doing well postoperatively. He ambulated multiple times. He denies nausea vomiting. He drink a lot of water yesterday. His pain is controlled with Tylenol. He denies passing gas. Exam Narrative: Exam Narrative: Abdomen is soft, not distended, not tender to palpation, right upper quadrant colostomy incision packing was removed and was saturated with serosanguineous fluid, the new packing was placed and the incision was covered with Mepilex. Const: Vital Signs, click to edit/add: Vital Signs - 24 hr 08/31/24 13:12 08/31/24 13:15 08/31/24 13:20 Temperature 98.1 F Pulse Rate 76 76 71 Pulse Rate [Right Pulse Oximeter] Respiratory Rate 14 12 15 Blood Pressure 116/80 112/66 129/70 Blood Pressure [Ri ght Arm] Pulse Oximetry 93 92 92 [facility] 08/31/24 13:25 08/31/24 13:30 08/31/24 13:35 Temperature Pulse Rate 71 68 69 Pulse Rate [Right Pulse Oximeter] Respiratory Rate 16 16 15 Blood Pressure 106/60 110/64 106/58 L Blood Pressure [Ri ght Arm] Pulse Oximetry 92 93 92 [facility] 08/31/24 13:42 08/31/24 13:50 08/31/24 14:00 Temperature 97.7 F 97.7 F Pulse Rate 67 67 67 Pulse Rate [Right Pulse Oximeter] Respiratory Rate 16 12 14 Blood Pressure 104/57 L 109/61 105/59 L Blood Pressure [Ri ght Arm] Pulse Oximetry 93 91 94 [facility] Room Air 08/31/24 14:15 08/31/24 14:30 08/31/24 14:45 Temperature 98.0 F 97.4 F L Pulse Rate 70 70 71 Pulse Rate [Right Pulse Oximeter] Respiratory Rate 14 Blood Pressure 105/61 99/52 L 113/72 Blood Pressure [Ri ght Arm] Pulse Oximetry 94 92 96 [facility] Room Air Room Air 08/31/24 15:00 08/31/24 15:15 08/31/24 15:45 Temperature Pulse Rate 76 88 Pulse Rate [Right Pulse Oximeter] Respiratory Rate 16 16 Blood Pressure 112/70 122/72 Blood Pressure [Ri ght Arm] Pulse Oximetry 93 96 92 Oxygen Delivery [facility] Room Air Room Air Room Air 08/31/24 16:45 08/31/24 17:45 08/31/24 18:45 Temperature Pulse Rate 95 86 87 Pulse Rate [Right Pulse Oximeter] Respiratory Rate 16 16 16 Blood Pressure 131/79 126/71 129/73 Blood Pressure [Ri ght Arm] Pulse Oximetry 95 97 94 Oxygen Delivery [facility] Room Air Room Air Room Air 08/31/24 19:45 08/31/24 23:00 08/31/24 23:00 Temperature 99.0 F Pulse Rate 91 Pulse Rate [Right Pulse Oximeter] Respiratory Rate 16 16 16 Blood Pressure 121/67 Blood Pressure [Ri ght Arm] Pulse Oximetry 96 93 Oxygen Delivery [facility] Room Air Room Air 08/31/24 23:00 09/01/24 03:00 09/01/24 07:00 Temperature 99.1 F 98.6 F 97.7 F Pulse Rate Pulse Rate [Right Pulse Oximeter] 91 76 74 Respiratory Rate 18 18 18 Blood Pressure Blood Pressure [Ri ght Arm] 120/83 114/65 127/69 Pulse Oximetry 93 99 98 Oxygen Delivery [facility] Room Air Room Air Room Air 09/01/24 07:00 09/01/24 07:00 09/01/24 11:00 Temperature 98 F Pulse Rate Pulse Rate [Right Pulse Oximeter] 74 81 Respiratory Rate 18 18 20 Blood Pressure Blood Pressure [Ri ght Arm] 139/91 H Pulse Oximetry 98 97 Oxygen Delivery [facility] Room Air Room Air Progress Note:A&P Assessment and plan (1) S/P colostomy takedown: Status: Acute Assessment and Plan: 74-year-old male s/p colostomy takedown POD 1. I discussed with the patient that he should slow down on drinking too much fluids all at once. We will continue waiting on return of bowel function. Patient will continue ambulating. Will decrease his fluids to 50 per hour. We will also continue with wet to dry dressing changes daily.
[2024-09-01 15:00] VITALS: BP 135/74; PULSE 84; RESP 20; TEMP 37.4; O2SAT 92
--- NOTE | 2024-09-01 17:26 | PC.NURSE ---
Patient is independent in room. Dressing in LUQ is intact and dry, small amount of drainage marked on gauze. LLQ bowel sounds are hypoactive. Patient denies N/V and flatus. Tolerating clear liquid diet.
[2024-09-01 19:00] VITALS: BP 139/73; PULSE 76; RESP 18; TEMP 36.8; O2SAT 93
[2024-09-01] MEDS: LACTATED RINGERS 1000 ML 1,000 ML 50 ML IV (22:35)
[2024-09-01 23:00] VITALS: BP 140/64; PULSE 82; RESP 16; TEMP 37.5; O2SAT 93
[2024-09-02] VITALS (8 sets, daily range): BP systolic 114–138; BP diastolic 67–85; PULSE 72–82; RESP 18–20; TEMP 36.5–37.3; O2SAT 93–98
--- NOTE | 2024-09-02 05:06 | PC.NURSE ---
End of shift report [id number]: Pleasant and cooperative with cares. Patient reported some abdominal discomfort due to fullness at 2100, declined pain medication at that time. Between 2129- patient was bale to pass flatus x 4 and reports that discomfort was resolved with release of gas. Bowel sounds active x 4 quadrants. Tolerating clear liquid diet without complaints. Dressing to stoma reversal changed, packing left intact and dressing cover replaced due to being saturated 80% with serosanguineous drainage. Surgical incision well approximated, no redness noted.
--- NOTE | 2024-09-02 08:41 | PM.GSPN ---
Subjective Subjective Date Seen: 09/02/24 Interval history: Patient is doing well. His abdominal pain is controlled with Tylenol. He is not taking narcotic pain medications. He passed gas last night. No bowel movements. He denies nausea vomiting. He tolerated clears. Exam Narrative: Exam Narrative: Abdomen is soft, not tender to palpation, not distended, left upper quadrant open colostomy incision is with bloody serosanguineous drainage on the packing. This was changed last night and Mepilex was changed today. Const: Vital Signs, click to edit/add: Vital Signs - 24 hr 09/01/24 11:00 09/01/24 15:00 09/01/24 15:00 Temperature 98 F Pulse Rate [Right Pulse Oximeter] 81 84 Respiratory Rate 20 20 20 Blood Pressure [Ri ght Arm] 139/91 H Pulse Oximetry 97 92 Oxygen Delivery Me thod Room Air Room Air 09/01/24 15:00 09/01/24 19:00 09/01/24 23:00 Temperature 99.4 F 98.2 F Pulse Rate [Right Pulse Oximeter] 84 76 82 Respiratory Rate 20 18 16 Blood Pressure [Ri ght Arm] 135/74 139/73 Pulse Oximetry 92 93 Oxygen Delivery Me thod Room Air Room Air 09/01/24 23:00 09/01/24 23:00 09/02/24 03:00 Temperature 99.5 F 99.2 F Pulse Rate [Right Pulse Oximeter] 82 72 Respiratory Rate 16 16 18 Blood Pressure [Ri ght Arm] 140/64 H 130/67 Pulse Oximetry 93 93 93 Oxygen Delivery Me thod Room Air Room Air Room Air Progress Note:A&P Assessment and plan (1) S/P colostomy takedown: Status: Acute Plan 74-year-old male s/p colostomy takedown POD 2. I will advance his diet to full liquid diet. If patient is doing well tomorrow he could be advanced to low-fiber diet. Patient can possibly discharge home tomorrow or Friday. I will also place patient on MiraLax at discharge to keep his bowel movements loose.
--- NOTE | 2024-09-02 15:22 | PC.NURSE ---
End of Shift: Pt is passing flatus and BS are active x4. Pt has not had a BM. Wet to dry dressing was changed and wound is well approximated with 7 sirena. Dressing is C/D/I. Pt tolerated dressing change well. SL. Denies pain, N/V. Ambulates ind.
--- NOTE | 2024-09-02 19:05 | PC.NURSE ---
Nursing Care Hours: [id number] Pt this shift alert and oriented, calm and cooperative. Independent ambulation. No reports of pain. BS active. Reported a small soft BM, advertising copywriter did not observe. tolerating full liquid diet. VSS.
[2024-09-02] MEDS: ACETAMINOPHEN 325 MG TABLET 650 MG PO (20:51)
[2024-09-03 04:15] VITALS: RESP 16
--- NOTE | 2024-09-03 06:41 | PC.NURSE ---
[id number]: Patient pleasant and cooperative. Passing gas and patient reports 3 small BM's, 1 verified by RN. BS active. Pain managed by PRN Tylenol and active ice. Dressing to abdomen C/D/I. Patient walking halls x2. Afebrile. Tolerating fulls. Denies N/V/CP.
[2024-09-03 09:02] VITALS: BP 127/85; PULSE 72; RESP 16; TEMP 36.6; O2SAT 96
--- NOTE | 2024-09-03 13:26 | NUTR.NU ---
RDN with diet education related to colostomy takedown. Patient admitted for colostomy take down following exploratory laparotomy, descending colectomy, and transverse colostomy and sigmoid mucous fistula for colonic obstruction on 02/06/2024. He was found to have T4a N1b M0 stage IIIB colon adenocarcinoma and underwent chemotherapy from February 2024 to June 2024. Current weight 235lb 14.314 oz; height 5ft 10in; BMI 33.8 kg/m2. His weight has been stable without significant fluctuations. Current diet is surgical soft/low fiber. He it tolerating liquids and soft diet. RDN visited patient and whom reports feeling good. They had questions regarding diet moving forward. Patient and was provided diet education on a low fiber/surgical soft diet. Discussed foods to include and foods to avoid until MD recommends advancing to high fiber diet. Education also provided on gradually increasing fiber and following a high fiber diet (25-35 grams/day) long-term.?Verbal and written information as well as sample menus provided on both diets from [facility].?Patient verbalized understanding. RDN's contact information was provided and patient was encouraged to contact RDN with questions.
--- NOTE | 2024-09-03 13:32 | P.DS_ITS ---
DS: Providers Provider Date Seen: 09/03/24 Date of admission: 08/31/24 08:04 Primary care physician: Raymond Hurst MD Admitting Clinician: Mercedes Bolton MD Attending Physician on discharge: Mercedes Bolton MD DS: Diagnosis Discharge Diagnosis (1) S/P colostomy takedown: Status: Acute DS: Summary Hospital Course Hospital Course: The patient is a 74-year-old male who underwent colostomy takedown on 08/31/2024. This was done after he underwent emergent laparotomy and descending colectomy with transverse colostomy and mucous fistula for stage IIIB adenocarcinoma. He then underwent adjuvant chemotherapy. Postoperatively he did well. By postoperative day 3 he had return of bowel function and was tolerating a regular diet without nausea. He had excellent pain control on Tylenol. He was deemed safe for discharge home and instructed on how to do dressing changes at his stoma site. Time Spent with Patient Time attestation: Total time spent providing and/or coordinating discharge services: Exam Narrative: Exam Narrative: General: No acute distress CV: regular rate and rhythm Pulm: breathing nonlabored on room air Abdomen: soft. Non-tender. Dressing changed. Small subcut bleeding noted - cauterized with silver nitrate, resulting in hemostasis. Const: Vital Signs, click to edit/add: Vital Signs - 24 hr 09/02/24 15:00 09/02/24 15:00 09/02/24 20:35 Temperature 98.9 F 98.4 F Pulse Rate [Right Pulse Oximeter] 73 77 Respiratory Rate 20 18 18 Blood Pressure [Ri ght Arm] 128/75 138/85 Pulse Oximetry 97 97 98 Oxygen Delivery Me thod Room Air Room Air Room Air 09/02/24 23:00 09/02/24 23:16 09/03/24 04:15 Temperature 97.7 F Pulse Rate [Right Pulse Oximeter] 73 Respiratory Rate 18 18 16 Blood Pressure [Ri ght Arm] 114/73 Pulse Oximetry 96 96 Oxygen Delivery Me thod Room Air Room Air 09/03/24 09:02 09/03/24 09:02 Temperature 97.8 F Pulse Rate [Right Pulse Oximeter] 72 Respiratory Rate 16 16 Blood Pressure [Ri ght Arm] 127/85 Pulse Oximetry 96 96 Oxygen Delivery Me thod Room Air Room Air DS: Data Data Completed and Pending Completed studies during hospitalization: Procedures Bypass Sigmoid Colon to Cutaneous, Open Approach (02/05/24) Bypass Transverse Colon to Cutaneous, Open Approach (02/05/24) Drainage of Stomach with Drainage Device, Via Natural or Artificial Opening (02/05/24) Excision of Omentum, Open Approach (02/05/24) Removal of Synthetic Substitute from Abdominal Wall, Open Approach (02/05/24) Resection of Descending Colon, Open Approach (02/05/24) Discharge Plan Discharge Disposition: Home, Self-Care Date of Admission: 08/31/24 08:04 Attending Provider on Discharge: Kayleigh Wylie Primary Care Provider: Raymond Hurst Condition: Improved Anticipated Discharge Date/Time: 09/03/24 13:30 Discharge Medications: New polyethylene glycol 3350 [Miralax] 17 gram powder in packet 17 g PO DAILY Qty: 14 0RF Continued rosuvastatin 10 mg tablet 10 mg PO Q48H lisinopril 20 mg tablet 10 mg PO DAILY Discharge Orders: Discharge Order (Routine); Ordered 09/03/24 Ordered By: Kayleigh Wylie Patient Education: Polyethylene Glycol 3350 (By mouth), Open Colostomy Reversal (DC) Additional Instructions: Patient should continue doing dressing changes to the left upper quadrant open incision with moist gauze and covered with dry gauze. These dressings need to be changed daily. Activity Level: No strenuous activity Activity Detail: No lifting more than 20 pounds for 4 weeks Discharge Diet: Low Fiber Follow Up Appointments: Mercedes Bolton MD [Staff Physician] - 09/13/24 1:15 pm (First appointment is with Dr. Bolton @1:15 Second appointment September 13, 2024 @1:50 for staple removal with the nurse. Both are at the [facility].) [facility]: [facility] Inst[facility]
== END 2024-09-03 14:17 | disposition home or self-care (01) | DRG 330 ==
PROVIDERS: Admitting Provider Surgery; PCP Family Medicine; Visit Provider Surgery
PROC: 0DBE0ZZ Excision of Large Intestine, Open Approach (ICD-10-PCS; CPT 44620; principal; 2024-08-31 09:15)
DX: Z43.3 Encounter for attention to colostomy (principal); C18.6 Malignant neoplasm of descending colon; K66.0 Peritoneal adhesions (postprocedural) (postinfection); G89.18 Other acute postprocedural pain
CPT/HCPCS: 00790; 64488; 76942; 88304; 88305; 88342; 99100; A9270; J0330; J0665; J0666; J1100; J1171; J1335; J2371; J2405; J2704; J3475; J3490; J7120

== ENCOUNTER 2024-10-07 07:57 | Outpatient (CLI) | payer MEDICARE, BC, SELFPAY ==
--- NOTE | 2024-10-07 09:00 | CRLHL7_ITS ---
For Patients: As a result of the Century Cures Act, medical imaging exams and procedure reports are released immediately into your electronic medical record. You may view this report before your referring provider. If you have questions, please contact your health care provider. INDICATION: Malignant neoplasm colon TECHNIQUE: CT chest, abdomen and pelvis acquired with 116 cc Isovue 370 IV contrast. COMPARISON: CT chest abdomen and pelvis 06/07/2024 FINDINGS: CHEST Lungs and pleura: Similar left upper lobe ground-glass nodule measuring 5 mm. No effusions, thickening, or pneumothorax. Heart and vasculature: Heart size is normal. Thoracic aorta and pulmonary artery are normal in caliber. Right chest port catheter with tip terminating in the mid superior vena cava Lymph node/mediastinum: No mediastinal, hilar, or axillary adenopathy. Chest wall: Normal. Bones: No suspicious bone lesions. ABDOMEN AND PELVIS: Liver: Normal in caliber and attenuation. No masses. Gallbladder and bile ducts: Unremarkable. Pancreas: Unremarkable. Spleen: Normal in caliber. No masses. Adrenal glands: Unremarkable. No masses. Kidneys: Normal in caliber. No suspicious masses. GI tract: Postsurgical changes left partial colectomy. There is mild circumferential thickening at the anastomosis (2/210) and improved adjacent left anterior omental stranding, particularly at the prior ostomy site. No evidence of obstruction. Normal appendix. Vasculature: Unremarkable. Mesenteric arteries are patent. Lymph nodes: No lymphadenopathy. Omentum/peritoneum/retroperitoneum/abdominal wall: No masses. No free air or significant free fluid. Pelvic organs: Unremarkable. Bones: Multilevel degenerative change of the spine. Similar grade 2 anterolisthesis L5-S1. Similar sclerotic focus within the left femoral head. IMPRESSION: 1. Postsurgical changes of left partial colectomy with soft tissue thickening at the anastomosis that is indeterminate for postsurgical change versus recurrence. PET-CT can be considered for further evaluation if surgery was not recently performed. 2. Decreased left anterior omental stranding, suggesting resolving inflammation. 3. Unchanged size, although decreasing conspicuity, of a left lower lobe subcentimeter pulmonary nodule. No additional evidence of metastatic disease in the chest abdomen or pelvis. No lymphadenopathy. Please note that all CT scans at this facility use dose modulation, iterative reconstruction, and/or weight-based dosing when appropriate to reduce radiation dose to as low as reasonably achievable. Dictated by Cristin Mills MD @ 10/08/2024 3:27:20 PM (Electronically Signed)
== END 2024-10-07 07:58 | disposition home or self-care (01) ==
LOC: CT 07:59
PROVIDERS: PCP Family Medicine; Visit Provider Internal Medicine Hematology & Oncology
DX: C18.9 Malignant neoplasm of colon, unspecified (principal); R91.8 Other nonspecific abnormal finding of lung field
CPT/HCPCS: 71260; 74177; Q9967

== ENCOUNTER 2024-12-29 08:54 | Outpatient (CLI) | payer MEDICARE, BC, SELFPAY ==
--- NOTE | 2024-12-29 09:00 | CRLHL7_ITS ---
For Patients: As a result of the Century Cures Act, medical imaging exams and procedure reports are released immediately into your electronic medical record. You may view this report before your referring provider. If you have questions, please contact your health care provider. Indication: Malignant neoplasm of colon Technique: Postcontrast CT chest, abdomen and pelvis. Oral water. 111 cc Isovue 370 intravenous contrast Please note that all CT scans at this facility use dose modulation, iterative reconstruction, and/or weight-based dosing when appropriate to reduce radiation dose to as low as reasonably achievable. Comparison: 10/07/2024 Findings: In the chest, the visualized thyroid is within normal limits. No mediastinal, hilar or axillary adenopathy. Stable subtle nodular density within the left upper lobe measures 5 millimeters. No additional nodule. Chronic elevation right hemidiaphragm with adjacent atelectasis. No pleural effusion or pulmonary edema. No pneumothorax.Tiny additional nodules left lower lobe are similar on the MIPs. In the abdomen, there is no suspicious intrahepatic mass. The gallbladder is within normal limits. Normal adrenal glands. Spleen is normal. Normal pancreas. No hiatal hernia. No hydronephrosis. Small bilateral parapelvic renal cysts are present. The ureters are unremarkable. No retroperitoneal or mesenteric adenopathy. The stomach appears normal. In the pelvis, postoperative changes of partial colectomy again noted. Scarring in the left anterior abdomen again noted. No fluid collection or acute inflammation. No enlarged lymph nodes. Similar appearance of the lower anterior abdominal wall. No pelvic sidewall or inguinal adenopathy. Stable collection of low-density material within the right inguinal region. 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 Impression: Decreased soft tissue prominence at the colonic anastomosis when compared to the prior study. Stable left upper lobe pulmonary nodule. No acute findings. Please note that all CT scans at this facility use dose modulation, iterative reconstruction, and/or weight-based dosing when appropriate to reduce radiation dose to as low as reasonably achievable. Dictated by Bigg Jaime MD @ 12/29/2024 11:49:41 AM (Electronically Signed)
== END 2024-12-29 08:55 | disposition home or self-care (01) ==
LOC: CT 08:55
PROVIDERS: PCP Family Medicine; Visit Provider Internal Medicine Hematology & Oncology
DX: C18.9 Malignant neoplasm of colon, unspecified (principal); R91.8 Other nonspecific abnormal finding of lung field; Z93.3 Colostomy status; C77.9 Secondary and unspecified malignant neoplasm of lymph node, unspecified; Z85.46 Personal history of malignant neoplasm of prostate
CPT/HCPCS: 71260; 74177; Q9967

== ENCOUNTER 2025-01-20 09:00 | Outpatient (RCR) | payer MEDICARE, BC, SELFPAY ==
[2024-10-07] MEDS: SODIUM CHLORIDE 0.9 % (FLUSH) 10 ML SYRINGE IVF ×2 (08:30→09:59)
[2024-10-07] MEDS: HEPARIN 500 UNIT/5 ML SYRINGE IVF (08:30)
[2024-10-07 08:41] LABS: Hematocrit* 41.4 % (37.0-53.0); Hemoglobin* 13.4 gm/dL (13.5-17.5); Immature Granulocytes Abs Auto 0.00 K/uL (0.00-0.30); Immature Granulocytes Pct Auto 0.0 %; Mean Corpuscular HGB Conc 32 gm/dL (32-36); Mean Corpuscular Hemoglobin 30 pg (26-34); Mean Corpuscular Volume 92 fL (80-100); RDW Coefficient of Variation % 14.3 % (11.5-15.5); Red Blood Count* 4.51 m/uL (4.30-5.90); White Blood Count* 3.10 K/uL (4.50-11.00)
[2024-10-07 08:42] LABS: Lymphocytes Absolute Auto 1.10 K/uL (0.90-2.90); Slide Review Reflex No
[2024-10-07 08:52] LABS: Albumin* 4.2 g/dL (3.3-5.0); Chloride* 106 mmol/L (96-114); Potassium* 4.1 mmol/L (3.6-5.1); Sodium* 140 mmol/L (135-149)
[2024-10-07 08:54] LABS: Blood Urea Nitrogen* 15 mg/dL (7-30); Creatinine* 0.9 mg/dL (0.5-1.5); Estimated Glomerular Filt Rate 90 ml/min
[2024-10-07 08:55] LABS: Alanine Aminotransferase* 25 U/L (4-50); Alkaline Phosphatase* 78 U/L (40-150); Anion Gap 5 mEq/L (7-15); Aspartate Amino Transferase* 41 U/L (12-35); Bilirubin Total* 1.0 mg/dL (0.1-1.5); Calcium* 9.1 mg/dL (8.4-10.6); Carbon Dioxide* 29 mmol/L (20-32); Glucose* 90 mg/dL (60-115); Total Protein* 7.0 g/dL (6.0-8.3)
[2024-10-09 12:11] LABS: Carcinoembryonic Antigen 1.1 ng/mL
[2024-10-15] MEDS: HEPARIN 500 UNIT/5 ML SYRINGE IVF (09:30)
[2024-10-15] MEDS: SODIUM CHLORIDE 0.9 % (FLUSH) 10 ML SYRINGE IVF (09:30)
[2024-12-29 09:01] LABS: Hematocrit* 46.3 % (37.0-53.0); Hemoglobin* 15.4 gm/dL (13.5-17.5); Immature Granulocytes Pct Auto 0.2 %; Mean Corpuscular HGB Conc 33 gm/dL (32-36); Mean Corpuscular Hemoglobin 30 pg (26-34); Mean Corpuscular Volume 91 fL (80-100); RDW Coefficient of Variation % 14.0 % (11.5-15.5); Red Blood Count* 5.07 m/uL (4.30-5.90); White Blood Count* 4.24 K/uL (4.50-11.00)
[2024-12-29 09:04] LABS: Immature Granulocytes Abs Auto 0.00 K/uL (0.00-0.30); Lymphocytes Absolute Auto 1.30 K/uL (0.90-2.90); Slide Review Reflex No
[2024-12-29 09:24] LABS: Albumin* 4.4 g/dL (3.3-5.0); Chloride* 104 mmol/L (96-114); Sodium* 140 mmol/L (135-149)
[2024-12-29 09:25] LABS: Potassium* 4.4 mmol/L (3.6-5.1)
[2024-12-29 09:27] LABS: Alanine Aminotransferase* 22 U/L (4-50); Alkaline Phosphatase* 67 U/L (40-150); Anion Gap 5 mEq/L (7-15); Aspartate Amino Transferase* 38 U/L (12-35); Bilirubin Total* 1.2 mg/dL (0.1-1.5); Blood Urea Nitrogen* 14 mg/dL (7-30); Carbon Dioxide* 31 mmol/L (20-32); Creatinine* 1.0 mg/dL (0.5-1.5); Est. Creatinine Clearance* 70.07; Estimated Glomerular Filt Rate 79 ml/min; Total Protein* 7.4 g/dL (6.0-8.3)
[2024-12-29 09:28] LABS: Calcium* 9.6 mg/dL (8.4-10.6); Glucose* 99 mg/dL (60-115)
[2024-12-31 22:39] LABS: Carcinoembryonic Antigen 1.2 ng/mL
--- NOTE | 2025-01-20 13:15 | ONC.NURNOTE ---
Jaret test sent out today--Due again around April 22
== END 2025-04-05 23:59 | disposition home or self-care (01) ==
LOC: CCIC 09:00
PROVIDERS: Internal Medicine Hematology & Oncology; PCP Family Medicine; Referring Provider Family Medicine; Visit Provider Physician Assistant
DX: C18.9 Malignant neoplasm of colon, unspecified (principal); Z93.3 Colostomy status
CPT/HCPCS: 36415; 36591; 71260; 74177; 80053; 82378; 85025; 99001; 99214; G0463; J1642; Q9967

== ENCOUNTER 2025-04-13 09:04 | Outpatient (CLI) | payer MEDICARE, BC, SELFPAY ==
--- NOTE | 2025-04-13 09:00 | CRLHL7_ITS ---
For Patients: As a result of the Century Cures Act, medical imaging exams and procedure reports are released immediately into your electronic medical record. You may view this report before your referring provider. If you have questions, please contact your health care provider. Indication: MALIGNANT NEOPLASM OF COLON Technique: CT Chest/Abd/Pelvis W/112CC [id number] intravenous contrast Please note that all CT scans at this facility use dose modulation, iterative reconstruction, and/or weight-based dosing when appropriate to reduce radiation dose to as low as reasonably achievable. Comparison: 12/29/2024 Findings: In the chest, the visualized thyroid is within normal limits. No adenopathy in the mediastinum, nura or axilla. Increased size and density of the nodule within the left upper lobe now measuring 8.2 millimeters. Chronic volume loss within the right lung base. No fracture or intrinsic osseous lesion. In the abdomen, elevation of the right hemidiaphragm is again noted. No intrahepatic mass. Spleen is within normal limits. Simple cyst right kidney measures 9 millimeters. Bilateral parapelvic renal cysts. Sub cm cyst lower pole left kidney. No hydronephrosis. Pancreas is unremarkable. The gallbladder is normal. Vascular calcifications. Numerous subcentimeter retroperitoneal lymph nodes are present. In the pelvis, the bladder is normal. Postoperative changes of partial colectomy with primary anastomosis noted. No bowel obstruction. No free air or free fluid. Normal appendix. Increased stool in the rectum. Postop changes of prostatectomy. No pelvic or inguinal adenopathy. Stable chronic density in the right inguinal region. Chronic pars defects at L5 with spondylolytic spondylolisthesis of L5 on S1 along with degenerative disc disease. No vertebral body compression fracture. Spurring at both hip joints. Impression: 8.2 millimeter left upper lobe pulmonary nodule appears increased in size and density compared to recent CT scans dated 12/29/2024 and 10/07/2024 although appears similar to prior CT-PET 02/19/2024. A repeat CT PET is recommended for further evaluation. No intrahepatic mass. Stable postop changes of partial colectomy with primary anastomosis. No bowel obstruction or acute inflammation. No adjacent nodularity in the mesenteric fat. Chronic colonic diverticulosis without diverticulitis. Simple renal cortical and parapelvic cysts. Chronic elevation right hemidiaphragm. Please note that all CT scans at this facility use dose modulation, iterative reconstruction, and/or weight-based dosing when appropriate to reduce radiation dose to as low as reasonably achievable. Dictated by Bigg Jaime MD @ 04/14/2025 11:12:35 AM (Electronically Signed)
== END 2025-04-13 09:05 | disposition home or self-care (01) ==
LOC: CT 09:04
PROVIDERS: PCP Family Medicine; Visit Provider Internal Medicine Hematology & Oncology
DX: C18.9 Malignant neoplasm of colon, unspecified (principal); R91.8 Other nonspecific abnormal finding of lung field; K57.30 Diverticulosis of large intestine without perforation or abscess without bleeding; N28.1 Cyst of kidney, acquired; C77.9 Secondary and unspecified malignant neoplasm of lymph node, unspecified; Z93.3 Colostomy status; Z85.46 Personal history of malignant neoplasm of prostate; D12.6 Benign neoplasm of colon, unspecified
CPT/HCPCS: 36415; 71260; 74177; 80053; 82378; 85025; 99001; 99215; G0463; Q9967

== ENCOUNTER 2025-05-12 14:48 | Outpatient (CLI) | payer MEDICARE, BC, SELFPAY ==
--- NOTE | 2025-05-12 15:00 | CRLHL7_ITS ---
For Patients: As a result of the Century Cures Act, medical imaging exams and procedure reports are released immediately into your electronic medical record. You may view this report before your referring provider. If you have questions, please contact your health care provider. CLINICAL HISTORY: Colorectal cancer. TECHNIQUE: Following IV injection of 01-uzihyx-1-deoxyglucose (FDG) and a standard uptake period of approximately 60 minutes, a non-contrast CT scan followed by a PET scan were acquired along the length of the body from the mid portion of the head to the mid thighs. The non-contrast CT was used for anatomic localization and photon attenuation correction of the PET scan. Blood Glucose Level (mg/dL): 71 FDG Dose (mCi): 13.2 COMPARISON: PET-CT scan dated [address] scans of the chest, abdomen, and pelvis dated 13 April 2025 and 29 December 2024. FINDINGS: Head/Neck: No abnormal activity identified in the head and neck. Chest: No mediastinal or hilar adenopathy. No axillary adenopathy. Atherosclerotic vascular calcifications. The lungs show a 7 mm pulmonary nodule in the posterior aspect of the left upper lobe best seen on image 94, SUV max 2.1 previously 3.3. Elevation of the right hemidiaphragm. No pneumothorax. Abdomen/Pelvis: No focal abnormalities identified in the visualized portions of the liver, spleen, pancreas, adrenal glands, and kidneys. No hydronephrosis. The GI tract shows partial colectomy changes involving the descending colon. A few scattered areas of increased activity in the colon with no corresponding CT abnormality may be physiologic. The remainder of the GI tract is incompletely distended but shows no gross abnormalities. No retroperitoneal, pelvic sidewall, or mesenteric adenopathy. Atherosclerotic vascular calcifications. Bones: Degenerative changes of the spine. No abnormal skeletal activity identified. IMPRESSION: 1. 7 mm pulmonary nodule in the left upper lobe shows decreased activity. 2. Partial colectomy. Dictated by Luis Angel Lee MD @ 05/17/2025 2:17:16 PM (Electronically Signed)
== END 2025-05-12 14:49 | disposition home or self-care (01) ==
LOC: RAD 14:50
PROVIDERS: PCP Family Medicine; Visit Provider Internal Medicine Hematology & Oncology
DX: C18.6 Malignant neoplasm of descending colon (principal); R91.8 Other nonspecific abnormal finding of lung field
CPT/HCPCS: 78815; A9552